=== PATIENT | female | born 1980 | race Caucasian/White ===

== ENCOUNTER 2018-02-04 10:58 | Emergency (ER) | payer BC, OTHER ==
[~2018-02-04] VITALS: Ht 160 cm; Wt 65.8 kg
--- OUTSIDE RECORDS SUMMARY | 2018-02-04 11:25 | XMS REPORT ---
Author Author RICHARD SOTELO Organization [facility] Address [address] [place] [address] Care Team Providers Care Refinery Process Engineer Name Role Phone CASI SOTELOTA Unavailable PROBLEMS Type Condition ICD9-CM Code [id number] Code Onset Dates Condition Status SNOMED Code Problem LGSIL on Pap smear of cervix R87.612 Active 843438391 ALLERGIES No Known Allergies ENCOUNTERS Encounter Location Date Diagnosis [place] [id number] [place] [id number] [place] [address] [phone] 05 Nov, 2017 [place] [address] [place] [id number] [place] [address] [phone] 31 Sep, 2017 [facility] [address] [address]- [address]65 13 Sep, 2017 Well woman exam with routine gynecological exam Z01.419 ; Routine screening for STI (sexually transmitted infection) Z11.3 ; control counseling Z30.09 and Encounter for Depo-Provera contraception Z30.42 [place] [address] [id number] [place] [address] 15251- 1402 03 Sep, 2017 [place] [address] [place] [id number] [place] [address] 97925- 1418 02 Sep, 2017 Family history of early CAD Z82.49 and Family history of diabetes mellitus Z83.3 IMMUNIZATIONS Vaccine Route Administration Date Status DEPO PROVERA (150 MG/ML) IM Intramuscular September 13, 2017 Administered SOCIAL HISTORY Never Assessed REASON FOR VISIT Well Woman Exam., patient has been told her has been unfaithful and would like checked., patient would like to begin depo today if provider allows it.-awoods PLAN OF CARE Activity Details Follow Up 3 Months/1year Reason: control Pending Test PAP REFLEX TO HPV IF ASCUS VITAL SIGNS Height 63 in 2017-09-13 Weight 151.4 lbs 2017-09-13 Temperature 97.7 degrees Fahrenheit 2017-09-13 Heart Rate 79 bpm 2017-09-13 Respiratory Rate 18 2017-09-13 BMI 26.82 kg/m2 2017-09-13 Blood pressure systolic 116 mmHg 2017-09-13 Blood pressure diastolic 78 mmHg 2017-09-13 MEDICATIONS Medication Instructions Dosage Frequency Start Date End Date Duration Status Flagyl 500 mg Orally 2 times a day 1 tablet 12h Sep, Sep, 07 days Active Depo-Provera 150 MG/ML Intramuscular every 3 mos 1 ml Sep, Active RESULTS No Results PROCEDURES Procedure Date Ordered Result Body Site SPECIMEN HANDLING September 13, 2017 No Charge September 13, 2017 DEPO PROVERA (150 MG/ML) September 13, 2017 THER/PROPH/DIAG INJ, SC/IM September 13, 2017 TRICHOMONAS ASSAY W/OPTIC September 13, 2017 Bacterial Vaginosis In House September 13, 2017 URINE TEST September 13, 2017 CULTURE, BACTERIA, OTHER September 13, 2017 INSTRUCTIONS MEDICATIONS ADMINISTERED No Known Medications MEDICAL (GENERAL) HISTORY Type Description Date Surgical History 2000,2004,2005,2010,2013 Hospitalization History
--- OUTSIDE RECORDS SUMMARY | 2018-02-04 11:25 | XMS REPORT ---
Author Author RICHARD SOTELO Organization [facility] Address [address] [place] [address] Care Team Providers Care Sample Weaver Name Role Phone RICHARD SOTELO Unavailable PROBLEMS Type Condition ICD9-CM Code LDS46-OX Code Onset Dates Condition Status SNOMED Code Problem LGSIL on Pap smear of cervix R87.612 Active [id number] ALLERGIES No Information ENCOUNTERS Encounter Location Date Diagnosis [place] [id number] [place] [id number] [place] [address] [phone] 05 Nov, 2017 [place] [address] [place] [id number] [place] [address] 88793- 0446 31 Sep, 2017 [facility] [id number] [place] [address] 58454- 8677 13 Sep, 2017 Well woman exam with routine gynecological exam Z01.419 ; Routine screening for STI (sexually transmitted infection) Z11.3 ; control counseling Z30.09 and Encounter for Depo-Provera contraception Z30.42 [place] [address] [place] [address] 31030- 8103 03 Sep, 2017 [place] [address] [place] [id number] [place] [address] 92877- [phone] 02 Sep, 2017 Family history of early CAD Z82.49 and Family history of diabetes mellitus Z83.3 IMMUNIZATIONS No Known Immunizations SOCIAL HISTORY Never Assessed REASON FOR VISIT Civil Preparedness Officer hx update PLAN OF CARE VITAL SIGNS MEDICATIONS Unknown Medications RESULTS No Results PROCEDURES No Known procedures INSTRUCTIONS MEDICATIONS ADMINISTERED No Known Medications MEDICAL (GENERAL) HISTORY Type Description Date Surgical History 2000,2004,2006,2010,2013 Hospitalization History
--- OUTSIDE RECORDS SUMMARY | 2018-02-04 11:25 | XMS REPORT ---
Author Author JEREMI MCGILL Organization [facility] Address [address] [place] [address] Care Team Providers Care Proctologist Name Role Phone JEREMI MCGILL Unavailable PROBLEMS Type Condition ICD9-CM Code [id number] Code Onset Dates Condition Status SNOMED Code Problem LGSIL on Pap smear of cervix R87.612 Active [id number] ALLERGIES No Information ENCOUNTERS Encounter Location Date Diagnosis [facility] [id number] [place] [address] [phone]- [phone] Sep, [place] [address] [place] [id number] [place] [address] 55740- 0722 13 Sep, 2017 Well woman exam with routine gynecological exam Z01.419 ; Routine screening for STI (sexually transmitted infection) Z11.3 ; control counseling Z30.09 and Encounter for Depo-Provera contraception Z30.42 [place] [address] [address] [id number] [place] [address] 52528- 8106 03 Sep, 2017 [place] [address] [place] [address] 93729- [phone] 02 Sep, 2017 Family history of early CAD Z82.49 and Family history of diabetes mellitus Z83.3 IMMUNIZATIONS No Known Immunizations SOCIAL HISTORY Never Assessed REASON FOR VISIT PLAN OF CARE VITAL SIGNS MEDICATIONS Medication Instructions Dosage Frequency Start Date End Date Duration Status Bactrim DS 800-160 MG Orally Twice a day 1 tablet 12h Sep,Sep 10 day(s) Active RESULTS No Results PROCEDURES No Known procedures INSTRUCTIONS MEDICATIONS ADMINISTERED No Known Medications MEDICAL (GENERAL) HISTORY Type Description Date Surgical History 2000,2005,2006,2010,2013 Hospitalization History
--- OUTSIDE RECORDS SUMMARY | 2018-02-04 11:25 | XMS REPORT ---
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.612 Active [id number] ALLERGIES No Information ENCOUNTERS Encounter Location Date Diagnosis [facility] [id number] [place] [address] 19425- 1549 05 Nov, 2017 [place] [address] [place] [id number] [place] [address] [phone]- 3910 31 Sep, 2017 [facility] [id number] [place] [address] 32871- 5691 13 Sep, 2017 Well woman exam with routine gynecological exam Z01.419 ; Routine screening for STI (sexually transmitted infection) Z11.3 ; control counseling Z30.09 and Encounter for Depo-Provera contraception Z30.42 [place] [address] [place] [address] 72922- 6831 03 Sep, 2017 [place] [address] [place] [id number] [place] [address] 34831- 7109 02 Sep, 2017 Family history of early CAD Z82.49 and Family history of diabetes mellitus Z83.3 IMMUNIZATIONS No Known Immunizations SOCIAL HISTORY Never Assessed REASON FOR VISIT FYI only PLAN OF CARE VITAL SIGNS MEDICATIONS Unknown Medications RESULTS No Results PROCEDURES No Known procedures INSTRUCTIONS MEDICATIONS ADMINISTERED No Known Medications MEDICAL (GENERAL) HISTORY Type Description Date Surgical History 2000,2004,2006,2010,2013 Hospitalization History
--- OUTSIDE RECORDS SUMMARY | 2018-02-04 11:25 | XMS REPORT ---
Author Author JEREMI MCGILL Organization [facility] Address [address] [place] [address] Care Team Providers Care Rug Weaver Name Role Phone JEREMI MCGILL Unavailable PROBLEMS Type Condition ICD9-CM Code PYB93-TA Code Onset Dates Condition Status SNOMED Code Problem LGSIL on Pap smear of cervix R87.612 Active [id number] ALLERGIES No Known Allergies ENCOUNTERS Encounter Location Date Diagnosis [place] [id number] [place] [address] 13553- [phone] 31 Sep, 2017 [place] [address] [place] [id number] [place] [address] [phone]- [phone] 13 Sep, 2017 Well woman exam with routine gynecological exam Z01.419 ; Routine screening for STI (sexually transmitted infection) Z11.3 ; control counseling Z30.09 and Encounter for Depo-Provera contraception Z30.42 [place] [address] [place] [id number] [place] [address] 68213- 2049 03 Sep, 2017 [facility] [address] [place] [address] 94680- [phone] 02 Sep, 2017 Family history of early CAD Z82.49 and Family history of diabetes mellitus Z83.3 IMMUNIZATIONS No Known Immunizations SOCIAL HISTORY Never Assessed REASON FOR VISIT [facility] PLAN OF CARE VITAL SIGNS MEDICATIONS Unknown Medications RESULTS No Results PROCEDURES Procedure Date Ordered Result Body Site COMPREHEN METABOLIC PANEL September 02, 2017 VENIPUNCT, ROUTINE* September 02, 2017 COMPLETE CBC W/AUTO DIFF WBC September 02, 2017 INSTRUCTIONS MEDICATIONS ADMINISTERED No Known Medications MEDICAL (GENERAL) HISTORY Type Description Date Surgical History 2000,2004,2006,2010,2014 Hospitalization History
[2018-02-04] MEDS ORDERED: MECLIZINE 25 MG (ANTIVERT) TAB PO ONE (12:00)
[2018-02-04 12:07] LABS: BASOPHILS # (AUTO) 0.1 10^3/uL (0.0-0.1); BASOPHILS % (AUTO) 1 % (0-10); EOSINOPHILS # (AUTO) 0.1 10^3/uL (0.0-0.3); EOSINOPHILS % (AUTO) 1 % (0-10); HEMATOCRIT 43 % (35-52); HEMOGLOBIN 14.8 G/DL (11.5-16.0); LYMPHOCYTES # (AUTO) 3.9 X 10^3 (1.0-4.0); LYMPHOCYTES % (AUTO) 33 % (12-44); MEAN CORPUSCULAR HEMOGLOBIN 32 PG (25-34); MEAN CORPUSCULAR HGB CONC 34 G/DL (32-36); MEAN CORPUSCULAR VOLUME 93 FL (80-99); MEAN PLATELET VOLUME 9.4 FL (7.4-10.4); MONOCYTES # (AUTO) 0.9 X 10^3 (0.0-1.0); MONOCYTES % (AUTO) 8 % (0-12); NEUTROPHILS # (AUTO) 6.8 X 10^3 (1.8-7.8); NEUTROPHILS % (AUTO) 57 % (42-75); PLATELET COUNT 300 10^3/uL (130-400); RED BLOOD COUNT 4.65 10^6/uL (4.35-5.85); RED CELL DISTRIBUTION WIDTH 15.5 % (10.0-14.5); WHITE BLOOD COUNT 11.9 10^3/uL (4.3-11.0)
--- NOTE | 2018-02-04 12:09 | ED General ---
General Chief Complaint: Dizziness/Syncope Stated Complaint: DIZZINESS;LIGHT HEADED Source of Information: Patient Exam Limitations: No Limitations History of Present Illness Date Seen by Provider: Feb 04, 2018 Time Seen by Provider: 12:08 Initial Comments To ER per private vehicle with reports of sudden onset dizziness lightheadedness and not feeling right. She awakened this morning and initially felt fine. About 2 hours prior to arrival she had sudden onset of dizziness lightheadedness and not feeling right. She has had a minor runny nose and slight nonproductive cough for the past few days. No fevers or chills. Her dizziness is still present but better Timing/Duration: 1-3 Hours Severity: Moderate Allergies and Home Medications Allergies Coded Allergies: No Known Allergies (Verified Allergy, Unknown, 04/26/05) Patient Home Medication List Home Medication List Reviewed: Yes Review of Systems Review of Systems Constitutional: see HPI EENTM: see HPI Respiratory: no symptoms reported Cardiovascular: no symptoms reported Genitourinary: no symptoms reported Musculoskeletal: no symptoms reported Skin: no symptoms reported Psychiatric/Neurological: No Symptoms Reported Hematologic/Lymphatic: No Symptoms Reported Immunological/Allergic: no symptoms reported Past Hquwkmr-Kzgmth-Yqfoci Hx Patient Social History Alcohol Use: Denies Use Recreational Drug Use: No Smoking Status: Current Everyday Smoker Type Used: Cigarettes Recent Hopitalizations: No Immunizations Up To Date Tetanus Booster (TDap): Unknown PED Vaccines UTD: Yes Seasonal Allergies Seasonal Allergies: No Past Medical History Surgeries: No Respiratory: No Cardiac: No Neurological: No Genitourinary: No Gastrointestinal: No Musculoskeletal: No Endocrine: No HEENT: No Cancer: No Psychosocial: No Integumentary: No Blood Disorders: No Physical Exam Vital Signs Vital Signs - First Documented 02/04/18 11:48 Temp 97.8 Pulse 70 Resp 20 B/P (MAP) 118/89 (99) Pulse Ox 100 O2 Delivery Room Air Capillary Refill : Height, Weight, BMI Height: '" Weight: lbs. oz. kg; BMI Method: General Appearance: No Apparent Distress, WD/WN Eyes: Bilateral Eye Normal Inspection, Bilateral Eye PERRL, Bilateral Eye EOMI HEENT: PERRL/EOMI, TMs Normal Respiratory: No Accessory Muscle Use, No Respiratory Distress Gastrointestinal: Non Tender, Soft Extremity: Normal Capillary Refill, Normal Inspection Neurologic/Psychiatric: Alert, Oriented x3, No Motor/Sensory Deficits Skin: Normal Color, Warm/Dry Progress/Results/Core Measures Suspected Sepsis SIRS Temperature: Pulse: Respiratory Rate: Laboratory Tests 02/04/18 11:58: White Blood Count 11.9H Blood Pressure / Mean: Laboratory Tests 02/04/18 11:58: Creatinine 0.67, Platelet Count 300, Total Bilirubin 0.4 Results/Orders Lab Results Laboratory Tests Test 02/04/18 11:58 Range/Units White Blood Count 11.9 H 4.3-11.0 10^3/uL Red Blood Count 4.65 4.35-5.85 10^6/uL Hemoglobin 14.8 11.5-16.0 G/DL Hematocrit 43 35-52 % Mean Corpuscular Volume 93 80-99 FL Mean Corpuscular Hemoglobin 32 25-34 PG Mean Corpuscular Hemoglobin Concent 34 32-36 G/DL Red Cell Distribution Width 15.5 H 10.0-14.5 % Platelet Count 300 130-400 10^3/uL Mean Platelet Volume 9.4 7.4-10.4 FL Neutrophils (%) (Auto) 57 42-75 % Lymphocytes (%) (Auto) 33 12-44 % Monocytes (%) (Auto) 8 0-12 % Eosinophils (%) (Auto) 1 0-10 % Basophils (%) (Auto) 1 0-10 % Neutrophils # (Auto) 6.8 1.8-7.8 X 10^3 Lymphocytes # (Auto) 3.9 1.0-4.0 X 10^3 Monocytes # (Auto) 0.9 0.0-1.0 X 10^3 Eosinophils # (Auto) 0.1 0.0-0.3 10^3/uL Basophils # (Auto) 0.1 0.0-0.1 10^3/uL Urine Color YELLOW Urine Clarity CLEAR Urine pH 7 5-9 Urine Specific Martin 1.005 L 1.016-1.022 Urine Protein NEGATIVE NEGATIVE Urine Glucose (UA) NEGATIVE NEGATIVE Urine Ketones NEGATIVE NEGATIVE Urine Nitrite NEGATIVE NEGATIVE Urine Bilirubin NEGATIVE NEGATIVE Urine Urobilinogen NORMAL NORMAL MG/DL Urine Leukocyte Esterase NEGATIVE NEGATIVE Urine RBC (Auto) 4+ H NEGATIVE Urine RBC RARE /HPF Urine WBC NONE /HPF Urine Squamous Epithelial Cells 2-5 /HPF Urine Crystals NONE /LPF Urine Bacteria NEGATIVE /HPF Urine Casts NONE /LPF Urine Mucus NEGATIVE /LPF Urine Culture Indicated NO Sodium Level 139 135-145 MMOL/L Potassium Level 4.3 3.6-5.0 MMOL/L Chloride Level 106 98-107 MMOL/L Carbon Dioxide Level 23 21-32 MMOL/L Anion Gap 10 5-14 MMOL/L Blood Urea Nitrogen 10 7-18 MG/DL Creatinine 0.67 0.60-1.30 MG/DL Estimat Glomerular Filtration Rate > 60 BUN/Creatinine Ratio 15 Glucose Level 94 70-105 MG/DL Calcium Level 9.4 8.5-10.1 MG/DL Corrected Calcium 9.0 8.5-10.1 MG/DL Total Bilirubin 0.4 0.1-1.0 MG/DL Aspartate Amino Transf (AST/SGOT) 23 5-34 U/L Alanine Aminotransferase (ALT/SGPT) 26 0-55 U/L Alkaline Phosphatase 49 40-136 U/L Total Protein 7.7 6.4-8.2 GM/DL Albumin 4.5 3.2-4.5 GM/DL Serum Test, Qualitative NEGATIVE NEGATIVE My Orders Orders - KAROLINA ELMORE APRN Cbc With Automated Diff (02/04/18 11:57) Comprehensive Metabolic Panel (02/04/18 11:57) Hcg,Qualitative Serum (02/04/18 11:57) Ua Culture If Indicated (02/04/18 11:57) Meclizine Tablet (Antivert Tablet) (02/04/18 12:00) Medications Given in ED Current Medications Medications Dose Ordered Sig/Padma Route Start Time Stop Time Status Last Admin Dose Admin Meclizine HCl 25 mg ONCE ONCE PO 02/04/18 12:00 02/04/18 12:01 DC 02/04/18 12:04 25 MG Vital Signs/I&O 02/04/18 11:48 Temp 97.8 Pulse 70 Resp 20 B/P (MAP) 118/89 (99) Pulse Ox 100 O2 Delivery Room Air Capillary Refill : Departure Impression Primary Impression: Vertigo Disposition: 01 HOME, SELF-CARE Condition: Stable Departure-Patient Inst. Decision time for Depature: 12:56 Referrals: NO,LOCAL PHYSICIAN (PCP) Primary Care Physician Patient Instructions: Vertigo (a Type of Dizziness) (DC) Add. Discharge Instructions: 1. Return to ER for any concerns 2. Follow-up with your doctor next week 3. All discharge instructions reviewed with patient and/or family. Voiced understanding. KAROLINA ELMORE APRN Feb 04, 2018 12:09
[2018-02-04 12:10] LABS: BILIRUBIN,URINE NEGATIVE (NEGATIVE); CLARITY,URINE CLEAR; COLOR,URINE YELLOW; GLUCOSE, URINE (UA) NEGATIVE (NEGATIVE); KETONES,URINE NEGATIVE (NEGATIVE); LEUKOCYTE ESTERASE ,URINE NEGATIVE (NEGATIVE); NITRITE,URINE NEGATIVE (NEGATIVE); PH,URINE 7 (5-9); PROTEIN,URINE NEGATIVE (NEGATIVE); UROBILINOGEN,URINE NORMAL (NORMAL)
[2018-02-04 12:19] LABS: BACTERIA,URINE NEGATIVE /HPF; RBC,URINE RARE /HPF
[2018-02-04 12:26] LABS: ALANINE AMINOTRANSFERASE 26 U/L (0-55); ALBUMIN 4.5 GM/DL (3.2-4.5); ALKALINE PHOSPHATASE 49 U/L (40-136); BILIRUBIN,TOTAL 0.4 MG/DL (0.1-1.0); BUN/CREATININE RATIO 15; CALCIUM 9.4 MG/DL (8.5-10.1); CARBON DIOXIDE 23 MMOL/L (21-32); CHLORIDE 106 MMOL/L (98-107); CREATININE SERUM 0.67 MG/DL (0.60-1.30); GFR ESTIMATED > 60; GLUCOSE 94 MG/DL (70-105); POTASSIUM 4.3 MMOL/L (3.6-5.0); SODIUM 139 MMOL/L (135-145); TOTAL PROTEIN 7.7 GM/DL (6.4-8.2)
[2018-02-04 13:06] VITALS: BP 118/89
== END 2018-02-04 13:06 | disposition home or self-care (01) ==
LOC: EDUNIT# 10:58 → ER 10:59
DX: R42 Dizziness and giddiness (principal); F17.210 Nicotine dependence, cigarettes, uncomplicated
CPT/HCPCS: 36415; 80053; 81000; 84703; 85025

== ENCOUNTER 2018-05-13 08:56 | Inpatient (IN) | payer SELFPAY ==
[~2018-05-13] VITALS: Ht 157.5 cm; Wt 66.2 kg
[2018-05-13] MEDS ORDERED: KETOROLAC 60 MG/2 ML VIAL IM ONE (11:15)
[2018-05-13] MEDS ORDERED: PROCHLORPERAZINE 10 MG/2ML INJ (COMPAZINE) IM ONE (11:15)
[2018-05-13] MEDS ORDERED: diphenhydrAMINE 50 MG/ML INJ (BENADRYL) IM ONE (11:15)
--- NOTE | 2018-05-13 11:32 | ED Headache ---
General Chief Complaint: Head/Cervical Problems Stated Complaint: HEADACHE; BLURRY VISION Nursing Triage Note: PT PRESENTS TO ER WITH COMPLAINT OF HEADACHE SINCE SATURDAY. PT STATES SHE HAS PAIN ON THE LEFT SIDE OF HER HEAD, BUT HAS LOSS OF PERIPHERAL VISION ON RIGHT EYE. STATES SHE HAS BEEN TAKING IBUPROFEN AT HOME. Nursing Sepsis Screen: No Definite Risk Source: patient Exam Limitations: no limitations History of Present Illness Date Seen by Provider: May 13, 2018 Time Seen by Provider: 11:05 Initial Comments 37-year-old female who presents to the emergency room with complaints of a migraine headache that started on Saturday05/11/18. She reports that she has had migraines in the past but this is different due to pain being localized to the left side of her head. She has also had intermittent peripheral right vision loss over the last 2 days but this morning when she woke up she had total right peripheral vision loss. She reports taking ldli-pez-drkyovt pain relief at home without any improvement. Patient is alert and oriented on arrival to the emergency room. Timing/Duration: other (2 days) Severity/Quality: constant Location: temporal (left) Prior Headaches/Recent Trauma: occasional headaches Associated Symptoms: vision changes Allergies and Home Medications Allergies Coded Allergies: NKANo Known Allergies (Verified Allergy, Unknown, 04/26/05) Home Medications Ibuprofen 200 Mg Tablet, 400-800 MG PO Q8H PRN for PAIN-MILD, (Reported) Multivitamin 1 Each Tablet, 1 TAB PO DAILY, (Reported) Patient Home Medication List Home Medication List Reviewed: Yes Review of Systems Review of Systems Constitutional: see HPI; No chills, No fever, No weakness Eyes: See HPI, Blindness (right peripheral vision loss.) Psychiatric/Neurological: See HPI, Headache (left-sided headache) All Other Systems Reviewed Negative Unless Noted: Yes Past Wvtolfh-Kpncor-Lgjhoc Hx Past Med/Social Hx: Reviewed Nursing Past Med/Soc Hx Patient Social History Alcohol Use: Denies Use Recreational Drug Use: No Smoking Status: Current Everyday Smoker Type Used: Cigarettes Recent Foreign Travel: No Contact w/Someone Who Travel: No Recent Infectious Disease Expo: No Recent Hopitalizations: No Immunizations Up To Date Tetanus Booster (TDap): Unknown PED Vaccines UTD: Yes Seasonal Allergies Seasonal Allergies: No Past Medical History Surgeries: No Respiratory: No Cardiac: No Neurological: No Genitourinary: No Gastrointestinal: No Musculoskeletal: No Endocrine: No HEENT: No Cancer: No Psychosocial: No Integumentary: No Blood Disorders: No Family Medical History Reviewed Nursing Family Hx Physical Exam Vital Signs Vital Signs - First Documented 05/13/18 09:08 Temp 99.1 Pulse 82 Resp 20 B/P (MAP) 125/98 (107) Pulse Ox 99 O2 Delivery Room Air Capillary Refill : Less Than 3 Seconds Height, Weight, BMI Height: 5'4.00" Weight: 145lbs. oz. 65.629755nh; BMI Method:Stated General Appearance: WD/WN, no apparent distress, other (Hemianopia of the right eye. Denies pain in the right eye.) HEENT: PERRL/EOMI, normal ENT inspection, TMs normal, pharynx normal, other Neck: non-tender, full range of motion, supple, normal inspection Cardiovascular: normal peripheral pulses, regular rate, rhythm, no edema, no gallop, no JVD, no murmur Respiratory: chest non-tender, lungs clear, normal breath sounds, no respiratory distress, no accessory muscle use Extremities: normal range of motion, non-tender, normal inspection, no pedal edema, no calf tenderness, normal capillary refill Psychiatric: alert, oriented x 3 Crainal Nerves: normal hearing, normal speech, PERRL Coordination/Gait: normal finger to nose, normal gait Skin: normal color, warm/dry Lymphatic: no adenopathy Comments The patient's initial NIH score that was performed after receiving the results of her CT was 1. Visual field- 1: Partial Hemianopia. Due to the patient's low NIH score and symptom length of time the patient is not a candidate for TPA. Progress/Results/Core Measures Results/Orders Lab Results Laboratory Tests Test 05/13/18 09:22 05/13/18 12:15 05/13/18 12:30 Range/Units Urine Color YELLOW Urine Clarity CLEAR Urine pH 7 5-9 Urine Specific [place] 1.005 L 1.016-1.022 Urine Protein NEGATIVE NEGATIVE Urine Glucose (UA) NEGATIVE NEGATIVE Urine Ketones NEGATIVE NEGATIVE Urine Nitrite NEGATIVE NEGATIVE Urine Bilirubin NEGATIVE NEGATIVE Urine Urobilinogen NORMAL NORMAL MG/DL Urine Leukocyte Esterase NEGATIVE NEGATIVE Urine RBC (Auto) NEGATIVE NEGATIVE Urine RBC NONE /HPF Urine WBC NONE /HPF Urine Squamous Epithelial Cells NONE /HPF Urine Crystals NONE /LPF Urine Bacteria NEGATIVE /HPF Urine Casts NONE /LPF Urine Mucus NEGATIVE /LPF Urine Culture Indicated NO White Blood Count 13.6 H 4.3-11.0 10^3/uL Red Blood Count 4.87 4.35-5.85 10^6/uL Hemoglobin 15.9 11.5-16.0 G/DL Hematocrit 47 35-52 % Mean Corpuscular Volume 97 80-99 FL Mean Corpuscular Hemoglobin 33 25-34 PG Mean Corpuscular Hemoglobin Concent 34 32-36 G/DL Red Cell Distribution Width 13.6 10.0-14.5 % Platelet Count 299 130-400 10^3/uL Mean Platelet Volume 9.6 7.4-10.4 FL Neutrophils (%) (Auto) 56 42-75 % Lymphocytes (%) (Auto) 35 12-44 % Monocytes (%) (Auto) 8 0-12 % Eosinophils (%) (Auto) 1 0-10 % Basophils (%) (Auto) 1 0-10 % Neutrophils # (Auto) 7.7 1.8-7.8 X 10^3 Lymphocytes # (Auto) 4.7 H 1.0-4.0 X 10^3 Monocytes # (Auto) 1.0 0.0-1.0 X 10^3 Eosinophils # (Auto) 0.1 0.0-0.3 10^3/uL Basophils # (Auto) 0.1 0.0-0.1 10^3/uL Prothrombin Time 12.1 L 12.2-14.7 SEC INR Comment 0.9 0.8-1.4 Activated Partial Thromboplast Time 28 24-35 SEC D-Dimer 0.47 0.00-0.49 UG/ML Sodium Level 141 135-145 MMOL/L Potassium Level 4.1 3.6-5.0 MMOL/L Chloride Level 106 98-107 MMOL/L Carbon Dioxide Level 24 21-32 MMOL/L Anion Gap 11 5-14 MMOL/L Blood Urea Nitrogen 7 7-18 MG/DL Creatinine 0.72 0.60-1.30 MG/DL Estimat Glomerular Filtration Rate > 60 BUN/Creatinine Ratio 10 Glucose Level 87 70-105 MG/DL Calcium Level 10.0 8.5-10.1 MG/DL Corrected Calcium 8.5-10.1 MG/DL Total Bilirubin 0.6 0.1-1.0 MG/DL Aspartate Amino Transf (AST/SGOT) 24 5-34 U/L Alanine Aminotransferase (ALT/SGPT) 16 0-55 U/L Alkaline Phosphatase 51 40-136 U/L Troponin I < 0.028 <0.028 NG/ML Total Protein 8.0 6.4-8.2 GM/DL Albumin 4.7 H 3.2-4.5 GM/DL My Orders Orders - FLAKITO LACEY Ketorolac Injection (Toradol Injection) (05/13/18 11:15) Prochlorperazine Injection (Compazine In (05/13/18 11:15) Diphenhydramine Injection (Benadryl Inje (05/13/18 11:15) Ct Head Wo (05/13/18 11:13) Cbc With Automated Diff (05/13/18 12:01) Protime With Inr (05/13/18 12:) Partial Thromboplastin Time (05/13/18 12:01) Comprehensive Metabolic Panel (05/13/18 12:01) Fibrin Degradation Products (05/13/18 12:01) Troponin I (05/13/18 12:01) Ua Culture If Indicated (05/13/18 12:01) Chest 1 View, Ap/Pa Only (05/13/18 12:01) Ekg Tracing (05/13/18 12:01) Saline Lock/Iv-Start (05/13/18 12:01) Vital Signs Stroke Patient Q15M (05/13/18 12:01) Monitor-Rhythm Ecg Trace Only (05/13/18 12:01) Dysphagia Screening Tool (05/13/18 12:) Lipid Panel (05/14/18 06:00) Hemoglobin A1c (05/13/18 12:58) Ct Angio Head/Neck (05/13/18 12:58) Iohexol Injection (Omnipaque 350 Mg/Ml 1 (05/13/18 13:15) Received Contrast (Contrast Received) (05/13/18 13:15) Ns (Ivpb) (Sodium Chloride 0.9% Ivpb Bag (05/13/18 13:15) Medications Given in ED Current Medications Medications Dose Ordered Sig/Padma Route Start Time Stop Time Status Last Admin Dose Admin Diphenhydramine HCl 50 mg ONCE ONCE IM 05/13/18 11:15 05/13/18 11:16 DC 05/13/18 11:43 50 MG Iohexol 75 ml ONCE ONCE IV 05/13/18 13:15 05/13/18 13:16 DC 05/13/18 13:25 75 ML Ketorolac Tromethamine 60 mg ONCE ONCE IM 05/13/18 11:15 05/13/18 11:16 DC 05/13/18 11:43 60 MG Prochlorperazine Edisylate 10 mg ONCE ONCE IM 05/13/18 11:15 05/13/18 11:16 DC 05/13/18 11:43 10 MG Sodium Chloride 100 ml ONCE ONCE IV 05/13/18 13:15 05/13/18 13:16 DC 05/13/18 13:25 80 ML Vital Signs/I&O 05/13/18 05/13/18 09:08 12:26 Temp 99.1 Pulse 82 81 Resp 20 10 B/P (MAP) 125/98 (107) 125/98 Pulse Ox 99 100 O2 Delivery Room Air Blood Pressure Mean: 107 Progress Progress Note : Time: 12:17 Progress Note [facility] stroke neurologist Dr. Medina was contacted at this time. Given the NIH score of 1 due to visual field partial hemianopia and subacute finding on CT he recommends brain MRI, CTA head and neck, echocardiogram, lipid panel, A1c, 81mg of aspirin daily, atorvastatin 40 mg daily, and admission for close observation. 1244: Dr. Chacko was contacted at this time and she agrees to accept the patient to her services with a distribution lead consult. 1410: Dr. Burton security analyst was called at this time and he recommends close outpatient follow- up given that the patient's extraocular movement and pupillary response is intact. Initial ECG Impression Date: May 13, 2018 Initial ECG Impression Time: 12:19 Initial ECG Rate: 65 Initial ECG Rhythm: Normal Sinus Initial ECG Intervals: Normal Initial ECG Impression: Normal Initial ECG Comparisson: No Previous ECG Available Comment Negative for STEMI. Dr. Crews has reviewed and agrees with above. Diagnostic Imaging Diagonstic Imaging: Xray, CT Plain Films/CT/US/NM/MRI: chest, head Comments NAME: MOLLY SOLIMAN MED REC#: [id number] PT STATUS: ADM IN : 1980 PHYSICIAN: FLAKITO LACEY ADMIT DATE: 05/13/18/4TH Signed Date of Exam: 05/13/18 CT ANGIO HEAD/NECK CLINICAL INDICATION: Patient with headache, blurred vision, and nausea x3 days. EXAMS: 1: Head CT with and without IV contrast. 2: CT angiogram of the head and neck performed with 75 cc of Omnipaque 350 IV contrast. Sagittal and coronal MIP reformations were created for better visualization of vascular anatomy. COMPARISON: Head CT without contrast dated 05/13/2018. FINDINGS: HEAD CT: Again seen small to moderate-sized acute/subacute cerebral infarct involving the left occipital lobe which is stable in size. There is no evidence of hemorrhagic transformation or significant IV contrast enhancement. There is leptomeningeal vascular enhancement seen in the region. The remainder of the brain parenchyma is unremarkable. There is no brain herniation or midline shift. There is no hydrocephalus. Basal cisterns are unremarkable. The extracranial soft tissue, skull, and orbits are unremarkable. Paranasal sinuses are clear. CT ANGIOGRAM: There is dense contrast bolus seen within the right subclavian vein and superior vena cava. Three-vessel aortic arch is seen. The right brachiocephalic artery, bilateral subclavian arteries, bilateral CCA, bilateral cervical ICA, and bilateral ECA are patent. Slightly dominant left cervical vertebral artery is seen. Otherwise, the bilateral cervical vertebral arteries are patent. The intradural bilateral vertebral arteries, PICA, basilar artery, bilateral superior cerebellar arteries, and bilateral BIOMEDICAL SERVICE ENGINEER are patent. There is no intravascular thrombus seen in the left BIOMEDICAL SERVICE ENGINEER region or significant vascular stenosis. The petrous and bilateral cavernous carotid artery regions are patent. The bilateral A1 ACAs and anterior communicating arteries and their distal branches are patent. The bilateral MCAs and their distal branches are patent. The dural venous sinuses are patent. There is mild enlargement of the bilateral palatine tonsils and posterior nasopharyngeal adenoid soft tissue. The remainder of the neck soft tissue structures are unremarkable. There is a 6 mm noncalcified nodule in the posterior right upper lobe. Mild emphysematous disease is seen. There are small anterior spurs involving the mid to lower cervical spine. IMPRESSION: 1: There is stable acute/subacute infarct involving the left occipital lobe. There is no evidence of hemorrhagic transformation, brain herniation, or midline shift. 2: CT angiogram of the head and neck is unremarkable with no significant stenosis, vascular malformation, aneurysm, or dissection. There is no intravascular thrombus seen. 3: There is a 6 mm noncalcified nodule in the right upper lobe. Comparison to prior chest CT scans would help better evaluate for chronicity. Otherwise, followup chest CT scan in six months is suggested for further evaluation and for stability. Results of this report, regarding vessels and brain, were discussed with Flakito Lacey via the telephone on 05/13/2018 at 1400 hours. Dictated by: Dictated on workstation # [id number] Dict: 05/13/18 1345 Trans: 05/13/181719 NAME: JANNYMOLLY [facility] REC#: [id number] PT STATUS: ADM IN : 1980 PHYSICIAN: FLAKITO LACEY ADMIT DATE: 05/13/18 Signed Date of Exam: 05/13/18 CHEST 1 VIEW, AP/PA ONLY CLINICAL INDICATION: Patient with left-sided headache and right-sided blurred vision. EXAM: Portable chest x-ray upright view. COMPARISONS: None. FINDINGS: Lungs/pleura: Lungs are clear. There is no pneumothorax. There is no pleural effusion. Mediastinum: Unremarkable. Pulmonary vasculature: Unremarkable. Heart: Unremarkable. Bones/extrathoracic soft tissue: There is dextroscoliosis of the lower thoracic spine and left curvature of the lumbar spine. IMPRESSION: There is no radiographic evidence of acute cardiopulmonary process. Dictated by: Dictated on workstation # [id number] Dict: 05/13/18 1251 Trans: 05/13/181719 Interpreted by: EMERY SABILLON MD Electronically signed by: EMERY SABILLON MD 05/13/181719 NAME: JANNYMOLLY Briceno [facility] REC#: [id number] PT STATUS: ADM IN : 1980 PHYSICIAN: FLAKITO LACEY ADMIT DATE: 05/13/18 Signed Date of Exam: 05/13/18 CT HEAD WO PROCEDURE: CT head without contrast. TECHNIQUE: Multiple contiguous axial images were obtained through the brain without the use of intravenous contrast. INDICATION: Headache. Blurred vision. COMPARISON: None. FINDINGS: Region of low attenuation throughout the left occipital and posterior left temporal lobe with loss of the dior-white differentiation. No evidence of hemorrhagic conversion. No mass effect or hydrocephalus. No extra-axial fluid collections. Osseous structures are intact. The visualized paranasal sinuses and mastoids are clear. IMPRESSION: Infarction in the left posterior cerebral artery distribution is likely subacute. No evidence of hemorrhagic conversion. Findings discussed with Flakito Lacey at 11:59 AM on 05/13/2017. Dictated by: Dictated on workstation # [id number] Dict: 05/13/18 1154 Trans: 05/13/18 1707 Interpreted by: ELIE DHILLON MD Electronically signed by: ELIE DHILLON MD 05/13/18 1707 Reviewed: Reviewed by Me Consults : Consulting Physician: A Departure Impression Primary Impression: Subacute Left Posterior Cerebral Artery Infarct Additional Impression: Hemianopia of right eye Disposition: ADMITTED INPATIENT Condition: Stable/Unchanged Admissions Decision to Admit Reason: Admit from ER (General) Decision to Admit/Date: May 13, 2018 Time/Decision to Admit Time: 13:39 Departure-Patient Inst. Referrals: NO,LOCAL PHYSICIAN (PCP) Primary Care Physician FLAKITO LACEY May 13, 2018 11:32
--- NOTE | 2018-05-13 12:07 | Diagnostic Imaging Report ---
PROCEDURE: CT head without contrast. TECHNIQUE: Multiple contiguous axial images were obtained through the brain without the use of intravenous contrast. INDICATION: Headache. Blurred vision. COMPARISON: None. FINDINGS: Region of low attenuation throughout the left occipital and posterior left temporal lobe with loss of the dior-white differentiation. No evidence of hemorrhagic conversion. No mass effect or hydrocephalus. No extra-axial fluid collections. Osseous structures are intact. The visualized paranasal sinuses and mastoids are clear. IMPRESSION: Infarction in the left posterior cerebral artery distribution is likely subacute. No evidence of hemorrhagic conversion. Findings discussed with Ramsey Lacey at 11:59 AM on 05/13/2017. Dictated by: Dictated on workstation # [id number]
[2018-05-13 12:13] LABS: BILIRUBIN,URINE NEGATIVE (NEGATIVE); CLARITY,URINE CLEAR; COLOR,URINE YELLOW; GLUCOSE, URINE (UA) NEGATIVE (NEGATIVE); KETONES,URINE NEGATIVE (NEGATIVE); LEUKOCYTE ESTERASE ,URINE NEGATIVE (NEGATIVE); NITRITE,URINE NEGATIVE (NEGATIVE); PH,URINE 7 (5-9); PROTEIN,URINE NEGATIVE (NEGATIVE); UROBILINOGEN,URINE NORMAL (NORMAL)
[2018-05-13 12:25] LABS: BASOPHILS # (AUTO) 0.1 10^3/uL (0.0-0.1); BASOPHILS % (AUTO) 1 % (0-10); EOSINOPHILS # (AUTO) 0.1 10^3/uL (0.0-0.3); EOSINOPHILS % (AUTO) 1 % (0-10); HEMATOCRIT 47 % (35-52); HEMOGLOBIN 15.9 G/DL (11.5-16.0); LYMPHOCYTES # (AUTO) 4.7 X 10^3 (1.0-4.0); LYMPHOCYTES % (AUTO) 35 % (12-44); MEAN CORPUSCULAR HEMOGLOBIN 33 PG (25-34); MEAN CORPUSCULAR HGB CONC 34 G/DL (32-36); MEAN CORPUSCULAR VOLUME 97 FL (80-99); MEAN PLATELET VOLUME 9.6 FL (7.4-10.4); MONOCYTES % (AUTO) 8 % (0-12); NEUTROPHILS # (AUTO) 7.7 X 10^3 (1.8-7.8); NEUTROPHILS % (AUTO) 56 % (42-75); PLATELET COUNT 299 10^3/uL (130-400); RED CELL DISTRIBUTION WIDTH 13.6 % (10.0-14.5); WHITE BLOOD COUNT 13.6 10^3/uL (4.3-11.0)
[2018-05-13 12:26] VITALS: BP 125/98
[2018-05-13 12:44] LABS: BACTERIA,URINE NEGATIVE /HPF
[2018-05-13 12:48] LABS: ALANINE AMINOTRANSFERASE 16 U/L (0-55); ALBUMIN 4.7 GM/DL (3.2-4.5); ALKALINE PHOSPHATASE 51 U/L (40-136); BILIRUBIN,TOTAL 0.6 MG/DL (0.1-1.0); BUN/CREATININE RATIO 10; CARBON DIOXIDE 24 MMOL/L (21-32); CHLORIDE 106 MMOL/L (98-107); CREATININE SERUM 0.72 MG/DL (0.60-1.30); GFR ESTIMATED > 60; GLUCOSE 87 MG/DL (70-105); POTASSIUM 4.1 MMOL/L (3.6-5.0); SODIUM 141 MMOL/L (135-145)
[2018-05-13 12:53] LABS: FIBRIN DEGRADATION PRODUCTS 0.47 UG/ML (0.00-0.49); INR 0.9 (0.8-1.4); PROTHROMBIN TIME PATIENT 12.1 SEC (12.2-14.7)
--- NOTE | 2018-05-13 12:56 | Diagnostic Imaging Report ---
CLINICAL INDICATION: Patient with left-sided headache and right-sided blurred vision. EXAM: Portable chest x-ray upright view. COMPARISONS: None. FINDINGS: Lungs/pleura: Lungs are clear. There is no pneumothorax. There is no pleural effusion. Mediastinum: Unremarkable. Pulmonary vasculature: Unremarkable. Heart: Unremarkable. Bones/extrathoracic soft tissue: There is dextroscoliosis of the lower thoracic spine and left curvature of the lumbar spine. IMPRESSION: There is no radiographic evidence of acute cardiopulmonary process. Dictated by: Dictated on workstation # [id number]
[2018-05-13] MEDS ORDERED: NS 100 ML (IVPB) BAG IV ONE (13:15)
[2018-05-13] MEDS ORDERED: IOHEXOL 350 MG/ML 100 ML (OMNIPAQUE 350) VIAL IV ONE (13:15)
[2018-05-13] MEDS ORDERED: RECEIVED CONTRAST 20 ML VIAL IV SCH (13:15)
--- NOTE | 2018-05-13 14:16 | Diagnostic Imaging Report ---
CLINICAL INDICATION: Patient with headache, blurred vision, and nausea x3 days. EXAMS: 1: Head CT with and without IV contrast. 2: CT angiogram of the head and neck performed with 75 cc of Omnipaque 350 IV contrast. Sagittal and coronal MIP reformations were created for better visualization of vascular anatomy. COMPARISON: Head CT without contrast dated 05/13/2018. FINDINGS: HEAD CT: Again seen small to moderate-sized acute/subacute cerebral infarct involving the left occipital lobe which is stable in size. There is no evidence of hemorrhagic transformation or significant IV contrast enhancement. There is leptomeningeal vascular enhancement seen in the region. The remainder of the brain parenchyma is unremarkable. There is no brain herniation or midline shift. There is no hydrocephalus. Basal cisterns are unremarkable. The extracranial soft tissue, skull, and orbits are unremarkable. Paranasal sinuses are clear. CT ANGIOGRAM: There is dense contrast bolus seen within the right subclavian vein and superior vena cava. Three-vessel aortic arch is seen. The right brachiocephalic artery, bilateral subclavian arteries, bilateral CCA, bilateral cervical ICA, and bilateral ECA are patent. Slightly dominant left cervical vertebral artery is seen. Otherwise, the bilateral cervical vertebral arteries are patent. The intradural bilateral vertebral arteries, PICA, basilar artery, bilateral superior cerebellar arteries, and bilateral JUNIOR MEDIA BUYER are patent. There is no intravascular thrombus seen in the left JUNIOR MEDIA BUYER region or significant vascular stenosis. The petrous and bilateral cavernous carotid artery regions are patent. The bilateral A1 ACAs and anterior communicating arteries and their distal branches are patent. The bilateral MCAs and their distal branches are patent. The dural venous sinuses are patent. There is mild enlargement of the bilateral palatine tonsils and posterior nasopharyngeal adenoid soft tissue. The remainder of the neck soft tissue structures are unremarkable. There is a 6 mm noncalcified nodule in the posterior right upper lobe. Mild emphysematous disease is seen. There are small anterior spurs involving the mid to lower cervical spine. IMPRESSION: 1: There is stable acute/subacute infarct involving the left occipital lobe. There is no evidence of hemorrhagic transformation, brain herniation, or midline shift. 2: CT angiogram of the head and neck is unremarkable with no significant stenosis, vascular malformation, aneurysm, or dissection. There is no intravascular thrombus seen. 3: There is a 6 mm noncalcified nodule in the right upper lobe. Comparison to prior chest CT scans would help better evaluate for chronicity. Otherwise, followup chest CT scan in six months is suggested for further evaluation and for stability. Results of this report, regarding vessels and brain, were discussed with Ramsey Lacey via the telephone on 05/13/2018 at 1400 hours. Dictated by: Dictated on workstation # [id number]
--- NOTE | 2018-05-13 15:00 | NUR ---
SOUTH SOLIMAN admitted to room 418-1, with an admitting diagnosis of SUBACUTE LEFT POSTERIOR CEREBRAL ARTERY INFARCT, on 05/13/18 from ER via W/C, accompanied by STAFF.MOLLY SOLIMAN introduced to surroundings, call light, bed controls, phone, TV, temperature control, lights, meal times, smoking policy, visitor policy, side rail policy, bathrooms and showers. Patient Rights given to patient in the handbook.MOLLY SOLIMAN verbalizes understanding that [facility] is not responsible for the loss or damage to any personal effects or valuables that are kept in the patients posession during their hospitalization. The following Patient Care Plans were discussed with the PT: Discharge Planning, PAIN CONTROL,IV THERAPY, and TESTS AND PROCEDURES. MOLLY SOLIMAN verbalizes understanding of Interdisciplinary Patient Education. Patient and/or family were informed about the Rapid Response Team and its purpose.
[2018-05-13 15:10] VITALS: BP 112/75
--- NOTE | 2018-05-13 15:39 | Physical Therapy Progress Note ---
Therapy Progress Note PT eval order received but patient is having testing done at this time after admission. Will try back in the morning. DOE RAO PT May 13, 2018 15:39
[2018-05-13] MEDS ORDERED: fentaNYL INJECTION 100 MCG/2 ML AMP IVP PRN (15:45)
--- NOTE | 2018-05-13 15:48 | Occ Therapy Progress Note ---
Therapy Progress Note 1540 pm Received OT Eval order but patient is having Echocardiogram testing in process at this time . Patient will be seen tomorrow am for OT Eval.. MJ SWAIN OT May 13, 2018 15:48
[2018-05-13] MEDS ORDERED: IBUP-30 PO (15:53)
[2018-05-13] MEDS ORDERED: MULT1TAB69 PO (15:53)
[2018-05-13 15:54] VITALS: BP 112/81
[2018-05-13] MEDS: HYDROcodone/APAP 5 MG/325 MG (LORTAB) TAB PO PRN (16:15)
--- NOTE | 2018-05-13 16:16 | History & Physical-Hospitalist ---
History of Present Illness HPI/Chief Complaint Pt is a 37yoCF with a PMH of tobacco abuse who presented to the ER due to right sided peripheral vision loss and headache. Her symptoms started on 05/11 when she woke up in the morning. She thought it was a migraine as she has a history of migraines and so she took ibuprofen. This did not improve her symptoms. She decided to seek care in the ER today as her symptoms were persistent. She complains of complete right sided peripheral vision loss still. She denies any other vision issues or deficits. She has no history of stroke or clotting disorder. She has no history of preeclampsia or other PIH syndromes in . CT head was done which revealed a left sided infarct. CTA Head and Neck showed a left occipital lobe infarct. She was admitted for further management. Source: patient Exam Limitations: no limitations Date Seen 05/13/18 Time Seen by a Provider: 16:07 Attending Physician Maxwell Chacko MD PCP No,Local Physician Referring Physician Date of Admission May 13, 2018 at 14:35 Home Medications & Allergies Home Medications Reviewed patient Home Medication Reconciliation performed by pharmacy medication reconciliations oil refinery process technician and/or nursing. Patients Allergies have been reviewed. Allergies Allergies Coded Allergies NKANo Known Allergies (Verified Allergy, Unknown, 04/26/05) Past Vdzxmtv-Hhvral-Sihsmy Hx Past Med/Social Hx: Reviewed Nursing Past Med/Soc Hx Patient Social History Alcohol Use: Occasionally Uses Recreational Drug Use: No Smoking Status: Current Everyday Smoker Cigaretts per day: 20 Type Used: Cigarettes Recent Foreign Travel: No Contact w/other who traveled: No Recent Hopitalizations: No Recent Infectious Disease Expo: No Immunizations Up To Date Tetanus Booster (TDap): Unknown Pediatric: Yes Seasonal Allergies Seasonal Allergies: No Past Medical History Migraines History of Blood Disorders: No Family History Reviewed Nursing Family Hx No Pertinent Family Hx (specifically denies family history of stroke, clotting disorders, heart disease) Review of Systems Constitutional: No chills, No fever EENTM: vision loss (per HPI); No blurred vision, No double vision, No nose congestion, No throat pain Respiratory: No cough, No dyspnea on exertion, No short of breath Cardiovascular: No chest pain, No edema, No palpitations Gastrointestinal: No abdominal pain, No constipation, No diarrhea, No nausea, No vomiting Genitourinary: No dysuria, No frequency Musculoskeletal: No joint pain, No muscle pain Skin: No lesions, No rash Psychiatric/Neurological: Headache; Denies Numbness, Denies Tingling Physical Exam Physical Exam Vital Signs Vital Signs - First Documented 05/13/18 09:08 Temp 99.1 Pulse 82 Resp 20 B/P (MAP) 125/98 (107) Pulse Ox 99 O2 Delivery Room Air Capillary Refill : Less Than 3 Seconds Height, Weight, BMI Height: 5'4.00" Weight: 145lbs. oz. 65.118789sf; BMI Method:Stated General Appearance: No Apparent Distress Eyes: Right Eye Normal Inspection, Right Eye PERRL HEENT: PERRL/EOMI, Normal ENT Inspection, Moist Mucous Membranes, Other (right peripheral vision loss) Neck: Full Range of Motion, Normal Inspection, Non Tender; No Carotid Bruit Respiratory: Lungs Clear, Normal Breath Sounds, No Accessory Muscle Use, No Respiratory Distress Cardiovascular: Regular Rate, Rhythm, No Edema, No Gallop, No JVD, No Murmur, Normal Peripheral Pulses Gastrointestinal: Normal Bowel Sounds, Non Tender, Soft Back: Normal Inspection Extremity: Normal Capillary Refill, Normal Inspection, Normal Range of Motion, Non Tender, No Calf Tenderness, No Pedal Edema Neurologic/Psychiatric: Alert, Oriented x3, No Motor/Sensory Deficits, Normal Mood/Affect Skin: Normal Color, Warm/Dry Lymphatic: No Adenopathy Results Results/Procedures Labs Laboratory Tests 05/13/18 12:15 05/14/18 05:05 Patient resulted labs reviewed. Imaging: Reviewed Imaging Report Imaging Date of Exam:05/13/18 CT HEAD WO PROCEDURE: CT head without contrast. TECHNIQUE: Multiple contiguous axial images were obtained through the brain without the use of intravenous contrast. INDICATION: Headache. Blurred vision. COMPARISON: None. FINDINGS: Region of low attenuation throughout the left occipital and posterior left temporal lobe with loss of the dior-white differentiation. No evidence of hemorrhagic conversion. No mass effect or hydrocephalus. No extra-axial fluid collections. Osseous structures are intact. The visualized paranasal sinuses and mastoids are clear. IMPRESSION: Infarction in the left posterior cerebral artery distribution is likely subacute. No evidence of hemorrhagic conversion. Date of Exam:05/13/18 CT ANGIO HEAD/NECK CLINICAL INDICATION: Patient with headache, blurred vision, and nausea x3 days. EXAMS: 1: Head CT with and without IV contrast. 2: CT angiogram of the head and neck performed with 75 cc of Omnipaque 350 IV contrast. Sagittal and coronal MIP reformations were created for better visualization of vascular anatomy. COMPARISON: Head CT without contrast dated 05/13/2018. FINDINGS: HEAD CT: Again seen small to moderate-sized acute/subacute cerebral infarct involving the left occipital lobe which is stable in size. There is no evidence of hemorrhagic transformation or significant IV contrast enhancement. There is leptomeningeal vascular enhancement seen in the region. The remainder of the brain parenchyma is unremarkable. There is no brain herniation or midline shift. There is no hydrocephalus. Basal cisterns are unremarkable. The extracranial soft tissue, skull, and orbits are unremarkable. Paranasal sinuses are clear. CT ANGIOGRAM: There is dense contrast bolus seen within the right subclavian vein and superior vena cava. Three-vessel aortic arch is seen. The right brachiocephalic artery, bilateral subclavian arteries, bilateral CCA, bilateral cervical ICA, and bilateral ECA are patent. Slightly dominant left cervical vertebral artery is seen. Otherwise, the bilateral cervical vertebral arteries are patent. The intradural bilateral vertebral arteries, PICA, basilar artery, bilateral superior cerebellar arteries, and bilateral PILOT CONTROL OPERATOR HELPER are patent. There is no intravascular thrombus seen in the left PILOT CONTROL OPERATOR HELPER region or significant vascular stenosis. The petrous and bilateral cavernous carotid artery regions are patent. The bilateral A1 ACAs and anterior communicating arteries and their distal branches are patent. The bilateral MCAs and their distal branches are patent. The dural venous sinuses are patent. There is mild enlargement of the bilateral palatine tonsils and posterior nasopharyngeal adenoid soft tissue. The remainder of the neck soft tissue structures are unremarkable. There is a 6 mm noncalcified nodule in the posterior right upper lobe. Mild emphysematous disease is seen. There are small anterior spurs involving the mid to lower cervical spine. IMPRESSION: 1: There is stable acute/subacute infarct involving the left occipital lobe. There is no evidence of hemorrhagic transformation, brain herniation, or midline shift. 2: CT angiogram of the head and neck is unremarkable with no significant stenosis, vascular malformation, aneurysm, or dissection. There is no intravascular thrombus seen. 3: There is a 6 mm noncalcified nodule in the right upper lobe. Comparison to prior chest CT scans would help better evaluate for chronicity. Otherwise, followup chest CT scan in six months is suggested for further evaluation and for stability. Results of this report, regarding vessels and brain, were discussed with Ramseycharis Lacey via the telephone on 05/13/2018 at 1400 hours. Assessment/Plan Admission Diagnosis Left occipital lobe infarct Admission Status: Inpatient Order (span 2 midnights) Reason for Inpatient Admission: Acute CVA- needs MRI, PT/OT Diagnosis/Problems Diagnosis/Problems (1) Acute ischemic left PILOT CONTROL OPERATOR HELPER stroke Assessment & Plan: MRI ordered Echo ordered Cardiology consulted given age- consider holter monitor? PT/OT ordered passed dysphagia screen Monitor on telemetry Lipid panel in AM I discussed with yunior Mcdonald, who recommended Factor V Leiden testing and outpatient follow up for further hypercoag testing in 3 months (2) Limited peripheral vision of right eye Status: Acute Assessment & Plan: Consistent with area of infarction Ramsey in ER spoke with Dr Lozano who will see as an outpatient (3) Tobacco abuse Assessment & Plan: Strongly recommended cessation Clinical Quality Measures DVT/VTE Risk/Contraindication: Risk Factor Score Per Nursin RFS Level Per Nursing on Admit: 2=Moderate MAXWELL CHACKO MD May 13, 2018 16:16
--- NOTE | 2018-05-13 16:18 | Consultation-Cardiology ---
HPI-Cardiology Cardiology Consultation: Date of Consultation 05/13/18 Time Seen by a Provider: 15:50 Date of Admission 05-13-18 Attending Physician Laura Chacko MD Admitting Physician No,Local Physician Consulting Physician Dante Doan MD HPI: Chief Complaint: Non-hemorrhagic CVA Ms. Soliman is a 37 year old female admitted to 418 from the ED. She reports she had drank approx 6 beers on Saturday night. She woke up on Saturday morning and approx an hour later developed a headache. She states she felt it was a migraine. She took OTC Ibuprofen without much relief. She states she was talking to her sister on the phone later in the day when she felt a sharp, stabbing pain in her head. She reports she began to notice intermittent right sided peripheral vision loss. She states the headache has persisted since Saturday with peripheral vision loss of the right eye which has not returned. She denies any c/o palpitations, syncope, near syncope, CP, dyspnea, or LE swelling. She reports her KIRAN is better. She reports she was receiving Depo injections for control, but did not have her Depo injection renewed in February. She states she has not been on any control. She does smoke approx 1/2 to 1 PPD of cigs. She denies any illicit drug use. She denies any recent infections. No c/o n/v/d. No c/o fever or chills. Review of Systems-Cardiology Review of Systems Constitutional: No chills, No fever, No malaise Eyes: As described under HPI Ears/Nose/Throat: No epistaxis, No recent hearing loss Respiratory: As described under HPI Cardiovascular: As described under HPI Gastrointestinal: No constipation, No diarrhea, No nausea, No vomiting Genitourinary: No dysuria, No hematuria Musculoskeletal: no symptoms reported Skin: No rash, No ulcerations Psychiatric/Neurological: As described under HPI; No seizure, No syncope Hematologic: No bleeding abnormalities LKF-Onuwss-Eyejoc Hx Patient Social History Alcohol Use: Denies Use Recreational Drug Use: No Smoking Status: Current Everyday Smoker Type Used: Cigarettes Recent Foreign Travel: No Recent Infectious Disease Expo: No Hospitalization with Isolation: Denies Physical Abuse Screen: No Sexual Abuse: No Immunizations Up To Date Tetanus Booster (TDap): Unknown Past Medical History PMH As described under Assessment. Family Medical History Family Medical History: No reported family h/o CAD or CVA. No reported family h/o premature SCD. Allergies and Home Medications Allergies Coded Allergies: NKANo Known Allergies (Verified Allergy, Unknown, 04/26/05) Home Medications Ibuprofen 200 Mg Tablet, 400-800 MG PO Q8H PRN for PAIN-MILD, (Reported) Multivitamin 1 Each Tablet, 1 TAB PO DAILY, (Reported) Physical Exam-Cardiology Physical Exam Vital Signs/I&O 05/14/18 05/14/18 05/14/18 05/14/18 00:47 01:00 04:16 07:06 Temp 98.0 97.9 Pulse 61 61 52 64 Resp 18 18 B/P (MAP) 110/75 (87) 110/73 (85) Pulse Ox 96 96 O2 Delivery Room Air Room Air 05/14/18 05/14/18 08:00 12:00 Temp 99.0 98.0 Pulse 70 72 Resp 18 20 B/P (MAP) 95/59 (71) 120/74 (89) Pulse Ox 97 99 O2 Delivery Room Air Room Air 05/14/18 00:00 Intake Total 1080 ml Balance 1080 ml Capillary Refill : Less Than 3 Seconds Constitutional: AAO x 3, well-developed, well-nourished HEENT: PERRL, hearing is well preserved, oral hygience is good Neck: No carotid bruit; carotid pulses are 2 + bilaterally Respiratory: No accessory muscle use, No respiratory distress; chest expansion is symmetric, chest is bilaterally symmetric, lungs clear to auscultation Cardiovascular: regular rate-rhythm; No JVD; S1 and S2 Gastrointestinal: No tender; soft, round, audible bowel sounds Rectal: deferred Extremities: no lower extremity edema bilateral Neurologic/Psychiatric: No aphasia, No facial droop, No motor weakness; grossly intact, power is 5/5 both on sides Skin: No rash, No ulcerations Data Review Labs Laboratory Tests 05/13/18 12:30: Mean Blood Glucose 88, Hemoglobin A1c 4.7 05/13/18 16:32: 05/14/18 05:05: White Blood Count 8.0, Red Blood Count 4.27L, Hemoglobin 14.1, Hematocrit 42, Mean Corpuscular Volume 97, Mean Corpuscular Hemoglobin 33, Mean Corpuscular Hemoglobin Concent 34, Red Cell Distribution Width 13.5, Platelet Count 283, Mean Platelet Volume 9.6, Neutrophils (%) (Auto) 51, Lymphocytes (%) (Auto) 36, Monocytes (%) (Auto) 10, Eosinophils (%) (Auto) 3, Basophils (%) (Auto) 1, Neutrophils # (Auto) 4.1, Lymphocytes # (Auto) 2.8, Monocytes # (Auto) 0.8, Eosinophils # (Auto) 0.2, Basophils # (Auto) 0.1, Sodium Level 137, Potassium Level 4.3, Chloride Level 109H, Carbon Dioxide Level 21, Anion Gap 7, Blood Urea Nitrogen 10, Creatinine 0.60, Estimat Glomerular Filtration Rate > 60, BUN/ Creatinine Ratio 17, Glucose Level 88, Calcium Level 8.5, Corrected Calcium 8.7 , Total Bilirubin 0.4, Aspartate Amino Transf (AST/SGOT) 18, Alanine Aminotransferase (ALT/SGPT) 12, Alkaline Phosphatase 43, Total Protein 6.1L, Albumin 3.7, Triglycerides Level 81, Cholesterol Level 186, LDL Cholesterol Direct 124, VLDL Cholesterol 16, HDL Cholesterol 51, Thyroid Stimulating Hormone (TSH) 1.09 05/14/18 10:25: D-Dimer 0.37 Radiology NAME: MO[facility] SOLIMAN [facility] REC#: [id number] PT STATUS: REG ER : 1980 PHYSICIAN: FLAKITO LACEY ADMIT DATE: 05/13/18/ER Draft Date of Exam:05/13/18 CT ANGIO HEAD/NECK CLINICAL INDICATION: Patient with headache, blurred vision, and nausea x3 days. EXAMS: 1: Head CT with and without IV contrast. 2: CT angiogram of the head and neck performed with 75 cc of Omnipaque 350 IV contrast. Sagittal and coronal MIP reformations were created for better visualization of vascular anatomy. COMPARISON: Head CT without contrast dated 05/13/2018. FINDINGS: HEAD CT: Again seen small to moderate-sized acute/subacute cerebral infarct involving the left occipital lobe which is stable in size. There is no evidence of hemorrhagic transformation or significant IV contrast enhancement. There is leptomeningeal vascular enhancement seen in the region. The remainder of the brain parenchyma is unremarkable. There is no brain herniation or midline shift. There is no hydrocephalus. Basal cisterns are unremarkable. The extracranial soft tissue, skull, and orbits are unremarkable. Paranasal sinuses are clear. CT ANGIOGRAM: There is dense contrast bolus seen within the right subclavian vein and superior vena cava. Three-vessel aortic arch is seen. The right brachiocephalic artery, bilateral subclavian arteries, bilateral CCA, bilateral cervical ICA, and bilateral ECA are patent. Slightly dominant left cervical vertebral artery is seen. Otherwise, the bilateral cervical vertebral arteries are patent. The intradural bilateral vertebral arteries, PICA, basilar artery, bilateral superior cerebellar arteries, and bilateral ROVING INSPECTOR are patent. There is no intravascular thrombus seen in the left ROVING INSPECTOR region or significant vascular stenosis. The petrous and bilateral cavernous carotid artery regions are patent. The bilateral A1 ACAs and anterior communicating arteries and their distal branches are patent. The bilateral MCAs and their distal branches are patent. The dural venous sinuses are patent. There is mild enlargement of the bilateral palatine tonsils and posterior nasopharyngeal adenoid soft tissue. The remainder of the neck soft tissue structures are unremarkable. There is a 6 mm noncalcified nodule in the posterior right upper lobe. Mild emphysematous disease is seen. There are small anterior spurs involving the mid to lower cervical spine. IMPRESSION: 1: There is stable acute/subacute infarct involving the left occipital lobe. There is no evidence of hemorrhagic transformation, brain herniation, or midline shift. 2: CT angiogram of the head and neck is unremarkable with no significant stenosis, vascular malformation, aneurysm, or dissection. There is no intravascular thrombus seen. 3: There is a 6 mm noncalcified nodule in the right upper lobe. Comparison to prior chest CT scans would help better evaluate for chronicity. Otherwise, followup chest CT scan in six months is suggested for further evaluation and for stability. Results of this report, regarding vessels and brain, were discussed with Flakito Lacey via the telephone on 05/13/2018 at 1400 hours. Dictated on workstation # [id number] Dict: 05/13/18 1345 Trans: 05/13/18 [id number] Interpreted by: EMERY SABILLON MD Electronically signed by: A/P-Cardiology Assessment/Admission Diagnosis Non-hemorrhagic CVA with right sided peripheral vision loss - management per medical services There is stable acute/subacute infarct involving the left occipital lobe. There is no evidence of hemorrhagic transformation, brain herniation, or midline shift per CTA of head on 05-13-18 Tobaccoism - cessation advised H/O migraines Discussion and Recomendations Non-hemorrhagic CVA - management per medical services Advise echocardiogram to eval structure Advise tele to eval for possible arrhythmia - if nothing seen during hospitalization advise consideration of ILR implant to look for occult arrhythmia as cause Hematology has been consulted per medical services Monitor lab Further recs will be based on her hospital course We would like to thank medical services for this consult I have spoken to Dr. Chacko Clinical Quality Measures DVT/VTE Risk/Contraindication: Risk Factor Score Per Nursin RFS Level Per Nursing on Admit: 2=Moderate THIEN MICHAUD May 13, 2018 16:18
[2018-05-13] MEDS ORDERED: FLU QUADRIvalent (5+ YOA) 2018-2019 (AFLURIA) 0.5 ML IM ONE (16:30)
[2018-05-13] MEDS: IBUPROFEN TABLET 200 MG TAB PO PRN (18:55)
[2018-05-13 19:59] VITALS: BP 114/80
[2018-05-13] MEDS: ATORVASTATIN 40 MG (LIPITOR) TABLET PO SCH (20:32)
--- NOTE | 2018-05-13 21:51 | Consultation-Cardiology ---
HPI-Cardiology Cardiology Consultation: Date of Consultation 05/13/18 Time Seen by a Provider: 20:50 Date of Admission Attending Physician Laura Chacko MD Admitting Physician No,Local Physician Consulting Physician SHAMA CALVILLO MD, MA, FACP, FACC, [facility], [facility] Physician requesting consult: Dr Chacko HPI: Chief Complaint: Reason for consultation: Non-hemorrhagic CVA Ms. Miner is a 37 year old female admitted to 418 from the ED. She reports she had drank approx 6 beers on Saturday night. She woke up on Saturday morning and approx an hour later developed a headache. She states she felt it was a migraine. She took OTC Ibuprofen without much relief. She states she was talking to her sister on the phone later in the day when she felt a sharp, stabbing pain in her head. She reports she began to notice intermittent right sided peripheral vision loss. She states the headache has persisted since Saturday with peripheral vision loss of the right eye which has not returned. She denies any c/o palpitations, syncope, near syncope, CP, dyspnea, or LE swelling. She reports her KIRAN is better. She reports she was receiving Depo injections for control, but did not have her Depo injection renewed in February. She states she has not been on any control. She does smoke approx 1/2 to 1 PPD of cigs. She denies any illicit drug use. She denies any recent infections. No c/o n/v/d. No c/o fever or chills. Review of Systems-Cardiology Review of Systems Constitutional: No chills, No fever, No malaise Eyes: As described under HPI Ears/Nose/Throat: No epistaxis, No recent hearing loss Respiratory: As described under HPI Cardiovascular: As described under HPI Gastrointestinal: No constipation, No diarrhea, No nausea, No vomiting Genitourinary: No dysuria, No hematuria Musculoskeletal: no symptoms reported Skin: No rash, No ulcerations Psychiatric/Neurological: As described under HPI; No seizure, No syncope Hematologic: No bleeding abnormalities BLS-Hnmupv-Erwqif Hx Patient Social History Alcohol Use: Occasionally Uses Recreational Drug Use: No Smoking Status: Current Everyday Smoker Cigaretts per day: 20 Type Used: Cigarettes Recent Foreign Travel: No Recent Infectious Disease Expo: No Hospitalization with Isolation: Denies Physical Abuse Screen: No Sexual Abuse: No Immunizations Up To Date Tetanus Booster (TDap): Unknown Past Medical History PMH As described under Assessment. Family Medical History Family Medical History: No reported family h/o CAD or CVA. No reported family h/o premature SCD. Family History: Hypertension 19 FATHER Allergies and Home Medications Allergies Coded Allergies: NKANo Known Allergies (Verified Allergy, Unknown, 04/26/05) Home Medications Ibuprofen 200 Mg Tablet, 400-800 MG PO Q8H PRN for PAIN-MILD, (Reported) Multivitamin 1 Each Tablet, 1 TAB PO DAILY, (Reported) Patient Home Medication List Home Medication List Reviewed: Yes Physical Exam-Cardiology Physical Exam Vital Signs/I&O 05/13/18 05/13/18 05/13/18 05/13/18 12:26 14:57 15:10 15:54 Temp 97.0 97.0 Pulse 81 72 97 75 Resp 10 20 16 16 B/P (MAP) 125/98 137/82 (100) 112/75 112/81 (91) Pulse Ox 100 98 99 99 O2 Delivery Room Air Room Air Room Air 05/13/18 05/13/18 05/13/18 05/13/18 16:51 18:44 19:00 19:59 Temp 97.8 Pulse 81 72 67 Resp 16 B/P (MAP) 114/80 (91) Pulse Ox 98 98 O2 Delivery Room Air Room Air Capillary Refill : Less Than 3 Seconds Constitutional: AAO x 3, well-developed, well-nourished HEENT: PERRL, hearing is well preserved, oral hygience is good Neck: No carotid bruit; carotid pulses are 2 + bilaterally Respiratory: No accessory muscle use, No respiratory distress; chest expansion is symmetric, chest is bilaterally symmetric, lungs clear to auscultation Cardiovascular: regular rate-rhythm; No JVD; S1 and S2 Gastrointestinal: No tender; soft, round, audible bowel sounds Rectal: deferred Extremities: no lower extremity edema bilateral Neurologic/Psychiatric: No aphasia, No facial droop, No motor weakness; grossly intact, power is 5/5 both on sides Skin: No rash, No ulcerations Data Review Labs Laboratory Tests 05/13/18 09:22: Urine Color YELLOW, Urine Clarity CLEAR, Urine pH 7, Urine Specific [place] 1.005L, Urine Protein NEGATIVE, Urine Glucose (UA) NEGATIVE, Urine Ketones NEGATIVE, Urine Nitrite NEGATIVE, Urine Bilirubin NEGATIVE, Urine Urobilinogen NORMAL, Urine Leukocyte Esterase NEGATIVE, Urine RBC (Auto) NEGATIVE, Urine RBC NONE, Urine WBC NONE, Urine Squamous Epithelial Cells NONE, Urine Crystals NONE , Urine Bacteria NEGATIVE, Urine Casts NONE, Urine Mucus NEGATIVE, Urine Culture Indicated NO 05/13/18 12:15: White Blood Count 13.6H, Red Blood Count 4.87, Hemoglobin 15.9, Hematocrit 47, Mean Corpuscular Volume 97, Mean Corpuscular Hemoglobin 33, Mean Corpuscular Hemoglobin Concent 34, Red Cell Distribution Width 13.6, Platelet Count 299, Mean Platelet Volume 9.6, Neutrophils (%) (Auto) 56, Lymphocytes (%) (Auto) 35, Monocytes (%) (Auto) 8, Eosinophils (%) (Auto) 1, Basophils (%) (Auto) 1, Neutrophils # (Auto) 7.7, Lymphocytes # (Auto) 4.7H, Monocytes # (Auto) 1.0, Eosinophils # (Auto) 0.1, Basophils # (Auto) 0.1, Prothrombin Time 12.1L, INR Comment 0.9, Activated Partial Thromboplast Time 28, D-Dimer 0.47, Sodium Level 141, Potassium Level 4.1, Chloride Level 106, Carbon Dioxide Level 24, Anion Gap 11, Blood Urea Nitrogen 7, Creatinine 0.72, Estimat Glomerular Filtration Rate > 60, BUN/Creatinine Ratio 10, Glucose Level 87, Calcium Level 10.0, Corrected Calcium , Total Bilirubin 0.6, Aspartate Amino Transf (AST/SGOT) 24, Alanine Aminotransferase (ALT/SGPT) 16, Alkaline Phosphatase 51, Troponin I < 0.028, Total Protein 8.0, Albumin 4.7H 05/13/18 12:30: 05/13/18 16:32: A/P-Cardiology Assessment/Admission Diagnosis 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 There is no evidence of hemorrhagic transformation, brain herniation, or midline shift per CTA of head on 05-13-18 Echo of 05/13/18: LVEF 60-65%, PASP approx 25 mmHg Tobaccoism - cessation advised H/O migraines Discussion and Recomendations Non-hemorrhagic CVA - management per medical services Consider ILR for eval for cryptogenic stroke Dr Ruvalcaba covering the Card Svce beginning 05/14/18 Clinical Quality Measures DVT/VTE Risk/Contraindication: Risk Factor Score Per Nursin RFS Level Per Nursing on Admit: 2=Moderate SHAMA CALVILLO MD FACP FAC CCDS May 13, 2018 21:51
[2018-05-14] VITALS (7 sets, daily range): BP systolic 95–125; BP diastolic 59–98
[2018-05-14 05:36] LABS: BASOPHILS # (AUTO) 0.1 10^3/uL (0.0-0.1); BASOPHILS % (AUTO) 1 % (0-10); EOSINOPHILS # (AUTO) 0.2 10^3/uL (0.0-0.3); EOSINOPHILS % (AUTO) 3 % (0-10); HEMATOCRIT 42 % (35-52); HEMOGLOBIN 14.1 G/DL (11.5-16.0); LYMPHOCYTES # (AUTO) 2.8 X 10^3 (1.0-4.0); LYMPHOCYTES % (AUTO) 36 % (12-44); MEAN CORPUSCULAR HEMOGLOBIN 33 PG (25-34); MEAN CORPUSCULAR HGB CONC 34 G/DL (32-36); MEAN CORPUSCULAR VOLUME 97 FL (80-99); MEAN PLATELET VOLUME 9.6 FL (7.4-10.4); MONOCYTES # (AUTO) 0.8 X 10^3 (0.0-1.0); MONOCYTES % (AUTO) 10 % (0-12); NEUTROPHILS # (AUTO) 4.1 X 10^3 (1.8-7.8); NEUTROPHILS % (AUTO) 51 % (42-75); PLATELET COUNT 283 10^3/uL (130-400); RED CELL DISTRIBUTION WIDTH 13.5 % (10.0-14.5)
[2018-05-14] MEDS: HYDROcodone/APAP 5 MG/325 MG (LORTAB) TAB PO PRN ×3 (05:42→16:02)
[2018-05-14 06:16] LABS: ALANINE AMINOTRANSFERASE 12 U/L (0-55); ALBUMIN 3.7 GM/DL (3.2-4.5); ALKALINE PHOSPHATASE 43 U/L (40-136); BILIRUBIN,TOTAL 0.4 MG/DL (0.1-1.0); BUN/CREATININE RATIO 17; CALCIUM 8.5 MG/DL (8.5-10.1); CARBON DIOXIDE 21 MMOL/L (21-32); CHLORIDE 109 MMOL/L (98-107); CHOLESTEROL 186 MG/DL (< 200); GFR ESTIMATED > 60; GLUCOSE 88 MG/DL (70-105); HDL CHOLESTEROL 51 MG/DL (40-60); POTASSIUM 4.3 MMOL/L (3.6-5.0); SODIUM 137 MMOL/L (135-145); TOTAL PROTEIN 6.1 GM/DL (6.4-8.2); TRIGLYCERIDES 81 MG/DL (<150); VLDL CHOLESTEROL 16 MG/DL (5-40)
--- NOTE | 2018-05-14 08:52 | Occupational Therapy Eval ---
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 Current History 33 yrs old w/f admitted to ER due to severe pain & Rt sided loss of peripheral vision . Reviewed History: Yes ADL-Prior Level of Function Therapy Code Descriptions/Definitions Functional [place] Measure: 0=Not Assessed/NA 4=Minimal Assistance 1=Total Assistance 5=Supervision or Setup 2=Maximal Assistance 6=Modified [place] 3=Moderate Assistance 7=Complete [place] Therapy Quality Codes: 6 Independent with activity with or without an assistive device 5 Patient requires set up or clean up by helper. Patient completes activity by themselves 4 Supervision or touching assist (CGA). [place] provide cues , steadying assist 3 The helper provides less than half the effort to complete the activity 2 The helper provides more than half the effort to complete the activity 1 Dependent. The helper does all the effort to complete an activity 7 Patient refused to complete or attempt activity 9 The patient did not perform the activity before the current illness or injury 88 Not attempted due to Medical conditions or safety concerns Functional Abilities and Goals: Independent: Patient completed the activities by him/herself, with or without an assistive device, with no assistance from a helper. Needed Some Help: Patient needed partial assistance from another person to complete activities. Dependent: A helper completed the activities for the patient. Unknown: Not Applicable: ADL PLOF Comments Pt lives at home & was Independent in all self care tasks , walking & IADLs. No driving due to lack of Driving permit OT Current Status ADL-Treatment Therapy Code Descriptions/Definitions Functional [place] Measure: 0=Not Assessed/NA 4=Minimal Assistance 1=Total Assistance 5=Supervision or Setup 2=Maximal Assistance 6=Modified [place] 3=Moderate Assistance 7=Complete [place] Therapy Quality Codes: 6 Independent with activity with or without an assistive device 5 Patient requires set up or clean up by helper. Patient completes activity by themselves 4 Supervision or touching assist (CGA). [place] provide cues , steadying assist 3 The helper provides less than half the effort to complete the activity 2 The helper provides more than half the effort to complete the activity 1 Dependent. The helper does all the effort to complete an activity 7 Patient refused to complete or attempt activity 9 The patient did not perform the activity before the current illness or injury 88 Not attempted due to Medical conditions or safety concerns OT Short Term Goals Short Term Goals 1=Demonstrate adherence to instructed precautions during ADL tasks. 2=Patient will verbalize/demonstrate understanding of assistive devices/ modifications for ADL. 3=Patient will improve strength/tolerance for activity to enable patient to perform ADL's. OT Buckle And Button Maker Goals Buckle And Button Maker Goals 1=Demonstrate adherence to instructed precautions during ADL tasks. 2=Patient will verbalize/demonstrate understanding of assistive devices/ modifications for ADL. 3=Patient will improve strength/tolerance for activity to enable patient to perform ADL's. OT Education/Plan Problem List/Assessment Assessment: Decreased Activ Tolerance, Decreased Safety Aware, Decreased UE Strength, Impaired Funct Balance, Impaired Self-Care Skills Discharge Recommendations Plan/Recommendations: Continue POC Therapy D/C Recommendations: Home w/ Family Support Treatment Plan/Plan of Care Treatment,Training & Education: Yes Patient would benefit from OT for education, treatment and training to promote independence in ADL's, mobility, safety and/or upper extremity function for ADL' s. Plan of Care: ADL Retraining, Functional Mobility, UE Funct Exercise/Act, UE Neuromus Re-Ed/Coord Frequency: 5 times per week Estimated Hrs Per Day: .25 hour per day Agreement: Yes Rehab Potential: Good Time/GCodes Start Time: 08:10 Stop Time: 08:35 Total Time Billed (hr/min): 25 Billed Treatment Time 1, EVL 13, FA 12 min. Total 25 minutes. MJ SWAIN OT May 14, 2018 08:52
--- NOTE | 2018-05-14 09:14 | Diagnostic Imaging Report ---
PROCEDURE: MR imaging of the brain without contrast. TECHNIQUE: Multiplanar, multisequence MR imaging of the brain was performed without contrast. INDICATION: Headaches and visual loss. Patient had a recently abnormal head CT demonstrating a subacute infarct and left posterior cerebral artery territory. Correlation is made with head CT one day earlier. There is a large area of diffusion restriction in the left occipital lobe and the posterior cerebral artery territory correlating with the CT abnormality. This is consistent with an acute/subacute infarct. There is a punctate region of diffusion restriction in the right occipital lobe consistent with microinfarct. There is also a small area of diffusion restriction in the right frontal cortex or subcortical region consistent with an acute infarct. Minimal and diffusion restriction in the posterior aspect of the left thalamus is seen. Normal expected flow-voids within the carotid siphons are seen. There is no midline shift. No acute intra-axial or extra-axial hemorrhage is detected. Corpus callosum is unremarkable. The sella and parasellar structures are unremarkable. IMPRESSION: Acute/subacute infarct in the left occipital lobe posterior cerebral artery territory. There are mitral infarcts in the posterior left thalamus as well as right occipital lobe and right frontal lobe. No intracranial hemorrhage is seen. Dictated by: Dictated on workstation # [id number]
[2018-05-14] MEDS: ASPIRIN 81 MG CHEW (CHILDREN'S ASA) PO SCH (09:28)
[2018-05-14] MEDS: IBUPROFEN TABLET 200 MG TAB PO PRN ×2 (09:28→19:08)
--- NOTE | 2018-05-14 09:50 | Physical Therapy Evaluation ---
PT Evaluation-General Medical Diagnosis Admission Date May 13, 2018 at 14:35 Medical Diagnosis: severe Headache, Acute ischemic Left HANDS PARTER stroke. Onset Date: May 13, 2018 Therapy Diagnosis Therapy Diagnosis: vision loss Height/Weight Height (Feet): 5 Height (Inches): 2.00 Weight (Pounds): 146 Weight (Ounces): 0.0 Precautions Precautions/Isolations: Fall Prevention, Standard Precautions Weight Bear Status Right Lower Extremity: Right Weight Bearing/Tolerated Left Lower Extremity: Left Weight Bearing/Tolerated Referral Physician: Laura Chacko MD Reason for Referral: Evaluation/Treatment Medical History Pertinent Medical History: CVA, Smoking Additional Medical History migraines Reviewed History: Yes Social History Home: Single Level Current Living Status: Spouse Entry Into Home: Stairs With Railing PT Steps Into Home: 4 Prior/Core FIM Prior Level of Function Therapy Code Descriptions/Definitions Functional [place] Measure: 0=Not Assessed/NA 4=Minimal Assistance 1=Total Assistance 5=Supervision or Setup 2=Maximal Assistance 6=Modified [place] 3=Moderate Assistance 7=Complete [place] Therapy Quality Codes: 6 Independent with activity with or without an assistive device 5 Patient requires set up or clean up by helper. Patient completes activity by themselves 4 Supervision or touching assist (CGA). [place] provide cues , steadying assist 3 The helper provides less than half the effort to complete the activity 2 The helper provides more than half the effort to complete the activity 1 Dependent. The helper does all the effort to complete an activity 7 Patient refused to complete or attempt activity 9 The patient did not perform the activity before the current illness or injury 88 Not attempted due to Medical conditions or safety concerns Functional Abilities and Goals: Independent: Patient completed the activities by him/herself, with or without an assistive device, with no assistance from a helper. Needed Some Help: Patient needed partial assistance from another person to complete activities. Dependent: A helper completed the activities for the patient. Unknown: Not Applicable: Bed Mobility: 7 Transfers (B,C,W/C) (FIM): 7 Gait: 7 Stairs: 7 Indoor Mobility (Ambulation): Independent Stairs: Independent PT Evaluation-Current Subjective Patient in bed pre tx, agrees to PT, has no complaints of pain. Patient states she has only been affected in her vision. Pt/Family Goals "to get her vision back to normal" Objective Patient Orientation: Person, Place, Situation ROM/Strength ROM Lower Extremities WNL Strength Lower Extremities 5/5 gross bilateral lower extremities except for 4+/5 hip flexion bilaterally Neuromuscular (Tone, Coordination, Reflexes) Patient has impaired peripheral vision in the right side, normal tracking, no facial asymmetry. Sensory Vision: Hearing: Functional Sensation Right Lower Extremit: Intact Sensation Left Lower Extremity: Intact Transfers Therapy Code Descriptions/Definitions Functional [place] Measure: 0=Not Assessed/NA 4=Minimal Assistance 1=Total Assistance 5=Supervision or Setup 2=Maximal Assistance 6=Modified [place] 3=Moderate Assistance 7=Complete [place] Transfers (B, C, W/C) (FIM): 7 Scootin Rollin Supine to/from Sit: 7 Sit to/from Stand: 7 Gait Mode of Locomotion: Walk Anticipated Mode of Locomotion: Walk Distance: 400' Gait Level of Assist: 7 Gait Assistive Device: None Comments/Gait Description Steady, brisk ambulation. Balance Sitting Static: Normal Sitting Dynamic: Normal Standing Static: Normal Standing Dynamic: Normal Assessment/Needs Patient had CVA but presents with only visual impairments. Rehab Potential: Good PT Plan Treatment/Plan Treatment Plan: Discontinue PT Treatment Plan: Other Treatment Duration: May 14, 2018 Frequency: Estimated Hrs Per Day: Other Patient and/or Family Agrees t: Yes Safety Risks/Education Patient Education: Gait Training, Transfer Techniques, Correct Positioning, Safety Issues Teaching Recipient: Patient Teaching Methods: Demonstration, Discussion Response to Teaching: Reinforcement Needed educated patient on adjusting to vision loss Discharge Recommendations Plan discharge Therapy D/C Recommendations: Home w/ Family Support Time/GCodes Time In: 934 Time Out: 944 Total Billed Treatment Time: 10 Total Billed Treatment 1 visit DOE KURTZ PT May 14, 2018 09:50
--- NOTE | 2018-05-14 09:58 | Progress Note-Hospitalist ---
Subjective HPI/CC On Admission Date Seen by Provider: May 14, 2018 Time Seen by Provider: 09:54 Pt is a 37yoCF with a PMH of tobacco abuse who presented to the ER due to right sided peripheral vision loss and headache. Her symptoms started on 05/11 when she woke up in the morning. She thought it was a migraine as she has a history of migraines and so she took ibuprofen. This did not improve her symptoms. She decided to seek care in the ER today as her symptoms were persistent. She complains of complete right sided peripheral vision loss still. She denies any other vision issues or deficits. She has no history of stroke or clotting disorder. She has no history of preeclampsia or other PIH syndromes in . CT head was done which revealed a left sided infarct. CTA Head and Neck showed a left occipital lobe infarct. She was admitted for further management. Subjective/Events-last exam Pt reports feeling well. Still has same visual deficit.No other deficits or complaints. Objective Exam Vital Signs Vital Signs Date Time Temp Pulse Resp B/P (MAP) Pulse Ox O2 Delivery O2 Flow Rate FiO2 05/14/18 08:00 99.0 70 18 95/59 (71) 97 Room Air Capillary Refill : Less Than 3 Seconds General Appearance: No Apparent Distress HEENT: Other (right peripheral vision loss) Respiratory: Lungs Clear, No Respiratory Distress Cardiovascular: Regular Rate, Rhythm, No JVD, No Murmur, Normal Peripheral Pulses Gastrointestinal: Normal Bowel Sounds, Non Tender, Soft Back: Normal Inspection Neurologic/Psychiatric: Alert, Oriented x3, Normal Mood/Affect, Other Results/Procedures Lab Laboratory Tests 05/13/18 12:15 05/14/18 05:05 Patient resulted labs reviewed. Imaging: Reviewed Imaging Report Assessment/Plan Assessment and Plan Assess & Plan/Chief Complaint Acute left VAMP PRESSER stroke Diagnosis/Problems Diagnosis/Problems (1) Acute ischemic left VAMP PRESSER stroke Assessment & Plan: MRI shows multiple areas of acute infarcts Discussed with radiologist who reviewed CTA with me again and now atherosclerotic disease Echo pending Cardiology consulted given age- discussed with Dr Ruvalcaba who recommends loop recorder PT/OT passed dysphagia screen Monitor on telemetry Lipid panel shows LDL of 124 I discussed with yunior Mcdonald, who recommended Factor V Leiden testing and outpatient follow up for further hypercoag testing in 3 months (2) Limited peripheral vision of right eye Status: Acute Assessment & Plan: Consistent with area of infarction [place] in ER spoke with Dr Lozano who will see as an outpatient (3) Tobacco abuse Assessment & Plan: Strongly recommended cessation Clinical Quality Measures DVT/VTE Risk/Contraindication: Risk Factor Score Per Nursin RFS Level Per Nursing on Admit: 2=Moderate MAXWELL VALADEZ MD May 14, 2018 09:58
--- NOTE | 2018-05-14 11:34 | Diagnostic Imaging Report ---
PROCEDURE: US Venous Lower Ext Bubba. TECHNIQUE: Multiple real-time grayscale images were obtained over the lower extremities in various projections, bilaterally. Additional duplex Doppler and color Doppler images were also obtained. INDICATION: Headache and blurred vision. There is no evidence of right or left lower extremity DVT. Both lower extremity deep venous system shows normal compressibility with normal response to augmentation and Valsalva. No fluid collection or mass is seen. IMPRESSION: No evidence of right or left lower extremity DVT. Dictated by: Dictated on workstation # [id number]
[2018-05-14] MEDS: NICOTINE 7 MG (NICODERM) PATCH TD SCH (11:37)
--- NOTE | 2018-05-14 12:04 | Occupational Therapy Eval ---
OT Evaluation-General/PLF Medical Diagnosis Admission Date May 13, 2018 at 14:35 Medical Diagnosis: severe Headache, Acute ischemic Left RN FLIGHT stroke. Onset Date: May 13, 2018 Therapy Diagnosis Therapy Diagnosis: Vision loss. Height/Weight Height (Feet): 5 Height (Inches): 2.00 Weight (Pounds): 146 Weight (Ounces): 0.0 Precautions Precautions/Isolations: Fall Prevention, Standard Precautions Safety Interventions: None Weight Bear Status Weight Bearing Restriction: Full Weight Bearing Location Restriction: L LE, R LE Referral Physician: Laura Chacko MD Referral Reason: Evaluation/Treatment, Strengthening/ROM Medical History Pertinent Medical History: CVA, Smoking Current History 33 yrs old w/f admitted in ER due to severe headache on Left side & causing Peripheral vision loss on Rt Eye. Reviewed History: Yes Social History Home: Single Level Current Living Status: Spouse Entry Into Home: Stairs With Railing Steps Into Home: 4 ADL-Prior Level of Function Therapy Code Descriptions/Definitions Functional [place] Measure: 0=Not Assessed/NA 4=Minimal Assistance 1=Total Assistance 5=Supervision or Setup 2=Maximal Assistance 6=Modified [place] 3=Moderate Assistance 7=Complete [place] Therapy Quality Codes: 6 Independent with activity with or without an assistive device 5 Patient requires set up or clean up by helper. Patient completes activity by themselves 4 Supervision or touching assist (CGA). Elverta provide cues , steadying assist 3 The helper provides less than half the effort to complete the activity 2 The helper provides more than half the effort to complete the activity 1 Dependent. The helper does all the effort to complete an activity 7 Patient refused to complete or attempt activity 9 The patient did not perform the activity before the current illness or injury 88 Not attempted due to Medical conditions or safety concerns Functional Abilities and Goals: Independent: Patient completed the activities by him/herself, with or without an assistive device, with no assistance from a helper. Needed Some Help: Patient needed partial assistance from another person to complete activities. Dependent: A helper completed the activities for the patient. Unknown: Not Applicable: Self Care: Independent Functional Cognition: Independent Drive Self: No OT Current Status Subjective Pt in bed, alert, oriented, cooperative & agree for therapy. Pt got up , jump out of bed, went to toilet , brushed teeth & came back presentable to talk to therapist. Pain Numeric Pain Scale: 0-No Pain Location: No Pain Reported Mental Status/Objective Patient Orientation: Person, Place, Time Current Glasses/Contacts: No Hearing Aids: No Dentures/Partials: No Hand Dominance: Right Upper Extremity ROM WFL Upper Extremity Coordination INTACT Upper Extremity Sensation Intact. Upper Extremity Strength MS in BUE -5/5 grossly graded. Endurance good ADL-Treatment ADL-Current Pt Independent in all ADLs & IADLs & ambulation without AD. Therapy Code Descriptions/Definitions Functional [place] Measure: 0=Not Assessed/NA 4=Minimal Assistance 1=Total Assistance 5=Supervision or Setup 2=Maximal Assistance 6=Modified [place] 3=Moderate Assistance 7=Complete [place] Therapy Quality Codes: 6 Independent with activity with or without an assistive device 5 Patient requires set up or clean up by helper. Patient completes activity by themselves 4 Supervision or touching assist (CGA). Elverta provide cues , steadying assist 3 The helper provides less than half the effort to complete the activity 2 The helper provides more than half the effort to complete the activity 1 Dependent. The helper does all the effort to complete an activity 7 Patient refused to complete or attempt activity 9 The patient did not perform the activity before the current illness or injury 88 Not attempted due to Medical conditions or safety concerns Eating (FIM): 7 Grooming (FIM): 7 Upper Body Dressing (FIM): 7 Lower Body Dressing (FIM): 7 Toileting (FIM): 7 Transfers (B, C, W/C) (FIM): 7 Toilet/Commode Transfer (FIM): 7 Education OT Patient Education: Correct positioning Teaching Recipient: Patient Teaching Methods: Demonstration Response to Teaching: Verbalize Understanding OT Short Term Goals Short Term Goals Time Frame: May 14, 2018 Additional Short Term Goals: 1-Demonstrate ADL Tasks, 2-Verbalize Understanding , 3-ImproveStrength/Eyla 1=Demonstrate adherence to instructed precautions during ADL tasks. 2=Patient will verbalize/demonstrate understanding of assistive devices/ modifications for ADL. 3=Patient will improve strength/tolerance for activity to enable patient to perform ADL's. OT Skilled Nursing Goals Skilled Nursing Goals Time Frame: May 14, 2018 Eating (FIM): 7 Grooming(FIM): 7 Bathing(FIM): 7 Upper Body Dressing(FIM): 7 Lower Body Dressing(FIM): 7 Toileting(FIM): 7 Transfers (B,C,W/C) (FIM): 7 Toilet/Commode Transfer(FIM): 7 Tub Transfer(FIM): 7 Shower Transfer(FIM): 7 Additional Goals: 1-Demonstrate ADL Tasks, 2-Verbalize Understanding, 3- ImproveStrength/Eyal 1=Demonstrate adherence to instructed precautions during ADL tasks. 2=Patient will verbalize/demonstrate understanding of assistive devices/ modifications for ADL. 3=Patient will improve strength/tolerance for activity to enable patient to perform ADL's. OT Education/Plan Discharge Recommendations Plan/Recommendations: Discontinue OT Therapy D/C Recommendations: Home w/ Family Support Equpiment Recommendations-D/C: None Patient/Family Goals To return home.Independently. Treatment Plan/Plan of Care Treatment,Training & Education: No D/C from OT Services.. Comment Patient Independent in all self care tasks, transfers, bed mobility, mobility without walker or cane, good standing balance. No need for skilled OT Treatment needed. Treatment Duration: May 14, 2018 Frequency: 5 times per week Estimated Hrs Per Day: Other Rehab Potential: Good Time/GCodes Start Time: 08:10 Stop Time: 08:35 Total Time Billed (hr/min): 25 Billed Treatment Time 1, Tony 13 min, FA 12 min Total 25 min MJ SWAIN OT May 14, 2018 12:04
--- NOTE | 2018-05-14 14:00 | Cardiology Progress Note ---
Cardiology SOAP Progress Note Subjective: No cardiac complaints. Objective: I&O/Vital Signs 05/14/18 05/14/18 05/14/18 05/14/18 04:16 07:06 08:00 12:00 Temp 97.9 99.0 98.0 Pulse 52 64 70 72 Resp 18 18 20 B/P (MAP) 110/73 (85) 95/59 (71) 120/74 (89) Pulse Ox 96 97 99 O2 Delivery Room Air Room Air Room Air 05/14/18 00:00 Intake Total 1080 ml Balance 1080 ml Weight (Pounds): 146 Weight (Ounces): 0.0 Weight (Calculated Kilograms): 66.309669 Constitutional: AAO x 3, well-developed, well-nourished Respiratory: No accessory muscle use, No respiratory distress, No chest tender ; chest expansion is symmetric, chest is bilaterally symmetric; No lungs clear to percussion; lungs clear to auscultation; No crackles, No rhonchi, No rales, No stridor, No wheezing, No pleural rub, No other Cardiovascular: regular rate-rhythm; No irregularly irregular, No extra beats, No parasternal heave is noted, No JVD, No edema, No bradycardia, No tachycardia , No point of maximal impulse, No cardiac thrills are palpable; S1 and S2; No gallop/S3, No gallop/S4, No diastolic murmur, No systolic murmur, No friction rub, No click, No other Gastrointestional: No tender; soft, round; No distended, No pulsatile mass, No organomegaly, No guarding, No rebound, No tenderness, No hernia, No mass; audible bowel sounds; No abnormal bowel sounds, No abdominal bruits, No spleenomegaly, No other Extremities: No normal range of motion, No non-tender, No normal inspection, No pedal edema, No calf tenderness, No normal capillary refill, No pelvis stable , No calf tenderness, No inflammation, No pedal edema, No slow capillary refill , No swelling, No other, No abrasion, No clubbing, No cyanosis, No ecchymosis, No laceration; no lower extremity edema bilateral; No significant edema, No tenderness, No wound Neurologic/Psychiatric: alert, normal mood/affect, oriented x 3; No aphasia, No facial droop, No motor weakness; grossly intact, power is 5/5 both on sides Skin: No normal color, No warm/dry, No cyanosis, No cool, No diaphoresis, No damp, No ecchymosis, No jaundice, No mottled, No pallor, No rash, No tattoos/ piercings, No ulcerations, No rash on exposed areas, No ulcerations on exposed areas, No other Results/Procedures: Labs Laboratory Tests 05/13/18 16:32: 05/14/18 05:05: White Blood Count 8.0, Red Blood Count 4.27L, Hemoglobin 14.1, Hematocrit 42, Mean Corpuscular Volume 97, Mean Corpuscular Hemoglobin 33, Mean Corpuscular Hemoglobin Concent 34, Red Cell Distribution Width 13.5, Platelet Count 283, Mean Platelet Volume 9.6, Neutrophils (%) (Auto) 51, Lymphocytes (%) (Auto) 36, Monocytes (%) (Auto) 10, Eosinophils (%) (Auto) 3, Basophils (%) (Auto) 1, Neutrophils # (Auto) 4.1, Lymphocytes # (Auto) 2.8, Monocytes # (Auto) 0.8, Eosinophils # (Auto) 0.2, Basophils # (Auto) 0.1, Sodium Level 137, Potassium Level 4.3, Chloride Level 109H, Carbon Dioxide Level 21, Anion Gap 7, Blood Urea Nitrogen 10, Creatinine 0.60, Estimat Glomerular Filtration Rate > 60, BUN/ Creatinine Ratio 17, Glucose Level 88, Calcium Level 8.5, Corrected Calcium 8.7 , Total Bilirubin 0.4, Aspartate Amino Transf (AST/SGOT) 18, Alanine Aminotransferase (ALT/SGPT) 12, Alkaline Phosphatase 43, Total Protein 6.1L, Albumin 3.7, Triglycerides Level 81, Cholesterol Level 186, LDL Cholesterol Direct 124, VLDL Cholesterol 16, HDL Cholesterol 51, Thyroid Stimulating Hormone (TSH) 1.09 05/14/18 10:25: D-Dimer 0.37 A/P: Assessment/Dx: 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 There is no evidence of hemorrhagic transformation, brain herniation, or midline shift per CTA of head on 05-13-18 Echo of 05/13/18: LVEF 60-65%, PASP approx 25 mmHg Tobaccoism - cessation advised H/O migraines Plan: Non-hemorrhagic CVA - management per medical services Transesophageal echocardiogram tomorrow to rule out embolic stroke. Bilateral lower extremity Dopplers to rule out DVT. Carotid ultrasound. Consider ILR for eval for cryptogenic stroke Discussed at length with patient and family. Informed consent for transesophageal echocardiogram was done. Thank you for your consultation. Please call me if you have any questions. Piter Ruvalcaba MD, FACP, FACC, FSCAI, FHRS, CCDS Interventional Cardiology Cardiac Electrophysiology Vascular Medicine and Endovascular Interventions Cherrie RUVALCABA MD May 14, 2018 14:00
[2018-05-14] MEDS: ATORVASTATIN 40 MG (LIPITOR) TABLET PO SCH (20:33)
[2018-05-15] VITALS (13 sets, daily range): BP systolic 92–133; BP diastolic 50–94
[2018-05-15] MEDS ORDERED: LIDOCAINE 2% VISCOUS 15 ML UDC ONE (07:50)
[2018-05-15] MEDS ORDERED: NS IV 1000 ML 1,000 ML ONE (07:50)
[2018-05-15] MEDS ORDERED: MIDAZOLAM 5 MG/5 ML (VERSED) VIAL ONE (07:57)
[2018-05-15] MEDS ORDERED: fentaNYL INJECTION 100 MCG/2 ML AMP ONE (07:57)
[2018-05-15] MEDS ORDERED: NICOTINE PATCH REMOVAL TP SCH (08:59)
[2018-05-15] MEDS ORDERED: NS IV 1000 ML 1,000 ML IV ONE (09:00)
--- NOTE | 2018-05-15 09:00 | NUR ---
PATIENT TO MIGUELITO WITH STAFF IN HOSPITAL BED.
[2018-05-15] MEDS ORDERED: LIDOCAINE 2% VISCOUS 15 ML UDC PO ONE (09:15)
[2018-05-15] MEDS ORDERED: MIDAZOLAM 5 MG/5 ML (VERSED) VIAL IV ONE (09:50)
[2018-05-15] MEDS ORDERED: fentaNYL INJECTION 100 MCG/2 ML AMP IV ONE (09:50)
[2018-05-15] MEDS ORDERED: LIDOCAINE 1% INJ 20 ML 20 ML VIAL ONE (10:19)
--- NOTE | 2018-05-15 11:08 | Discharge Inst-Simple/Standard ---
Discharge Inst-Standard Discharge Medications New, Converted or Re-Newed RX: Transmitted to Pharmacy Patient Instructions/Follow Up Plan of Care/Instructions/FU: Please continue to take your medications as written. Please follow up with your physicians as recommended to follow up your hospitalization. Activity as Tolerated: Yes Discharge Diet: No Restrictions Return to The Hospital For: Inability to use upper or lower extremity, facial droop, slurred speech, worsening vision, if you feel you are getting worse. MAXWELL VALADEZ MD May 15, 2018 11:08
[2018-05-15] MEDS ORDERED: APIX5TAB PO (11:10)
[2018-05-15] MEDS ORDERED: ASPI-999 PO (11:10)
[2018-05-15] MEDS ORDERED: ATOR40TA PO (11:10)
--- NOTE | 2018-05-15 11:18 | Cardiology Progress Note ---
Cardiology SOAP Progress Note Subjective: No cardiac symptoms. Objective: I&O/Vital Signs 05/15/18 05/15/18 05/15/18 05/15/18 07:00 08:00 09:00 09:10 Temp 97.8 Pulse 70 87 84 Resp 19 B/P (MAP) 127/75 (92) 115/80 (92) Pulse Ox 99 97 O2 Delivery Room Air Room Air Room Air 05/15/18 05/15/18 05/15/18 05/15/18 09:44 09:53 10:00 10:05 Pulse 79 83 94 82 B/P (MAP) 112/81 (91) 108/78 (88) 133/82 (99) 126/94 (105) Pulse Ox 100 100 100 99 O2 Delivery Nasal Cannula Nasal Cannula Nasal Cannula Nasal Cannula O2 Flow Rate 4.00 4.00 05/15/18 05/15/18 05/15/18 05/15/18 10:10 10:25 10:40 11:00 Pulse 85 78 81 88 B/P (MAP) 115/88 (97) 122/80 (94) 119/74 (89) 124/70 (88) Pulse Ox 98 97 98 98 O2 Delivery Room Air 05/15/18 05/15/18 11:52 13:38 Temp 98.4 Pulse 89 Resp 18 B/P (MAP) 113/71 (85) Pulse Ox 97 O2 Delivery Room Air 05/15/18 00:00 Intake Total 1300 ml Balance 1300 ml Weight (Pounds): 146 Weight (Ounces): 0.0 Weight (Calculated Kilograms): 66.352177 Constitutional: AAO x 3, well-developed, well-nourished Respiratory: No accessory muscle use, No respiratory distress, No chest tender ; chest expansion is symmetric, chest is bilaterally symmetric; No lungs clear to percussion; lungs clear to auscultation; No crackles, No rhonchi, No rales, No stridor, No wheezing, No pleural rub, No other Cardiovascular: regular rate-rhythm; No irregularly irregular, No extra beats, No parasternal heave is noted, No JVD, No edema, No bradycardia, No tachycardia , No point of maximal impulse, No cardiac thrills are palpable; S1 and S2; No gallop/S3, No gallop/S4, No diastolic murmur, No systolic murmur, No friction rub, No click, No other Gastrointestional: No tender; soft, round; No distended, No pulsatile mass, No organomegaly, No guarding, No rebound, No tenderness, No hernia, No mass; audible bowel sounds; No abnormal bowel sounds, No abdominal bruits, No spleenomegaly, No other Extremities: No normal range of motion, No non-tender, No normal inspection, No pedal edema, No calf tenderness, No normal capillary refill, No pelvis stable , No calf tenderness, No inflammation, No pedal edema, No slow capillary refill , No swelling, No other, No abrasion, No clubbing, No cyanosis, No ecchymosis, No laceration; no lower extremity edema bilateral; No significant edema, No tenderness, No wound Neurologic/Psychiatric: alert, normal mood/affect, oriented x 3; No aphasia, No facial droop, No motor weakness; grossly intact, power is 5/5 both on sides Skin: No normal color, No warm/dry, No cyanosis, No cool, No diaphoresis, No damp, No ecchymosis, No jaundice, No mottled, No pallor, No rash, No tattoos/ piercings, No ulcerations, No rash on exposed areas, No ulcerations on exposed areas, No other A/P: Assessment/Dx: 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 There is no evidence of hemorrhagic transformation, brain herniation, or midline shift per CTA of head on 05-13-18 Echo of 05/13/18: LVEF 60-65%, PASP approx 25 mmHg Tobaccoism - cessation advised H/O migraines Plan: Non-hemorrhagic CVA - management per medical services Transesophageal echocardiogram was done which did not show ASD, PFO. No vegetation on any valves. No thrombus in the left atrial appendage and left atrium. Bilateral lower extremity Dopplers to rule out DVT. Neck CTA did not show any carotid stenosis. ILR for eval for cryptogenic stroke ( negative telemetry, negative carotid stenosis, negative transesophageal echocardiogram) Follow-up as an outpatient. Thank you for your consultation. Please call me if you have any questions. Piter Ruvalcaba MD, FACP, FACC, FSCAI, FHRS, CCDS Interventional Cardiology Cardiac Electrophysiology Vascular Medicine and Endovascular Interventions Cherrie RUVALCABA MD May 15, 2018 11:17
--- NOTE | 2018-05-15 11:19 | Implantation of Loop Monitor ---
Implant of Loop Monitior PROCEDURE PHYSICIAN: Piter Ruvalcaba MD IMPLANTATION OF LOOP MONITOR REPORT DATE OF PROCEDURE: 05/15/18 ATTENDING PHYSICIAN: Dr. Mike Ruvalcaba. REFERRING PHYSICIAN: Dr. Aubrie Chacko PERFORMING PHYSICIAN: Dr. Mike Ruvalcaba. INDICATION: Cryptogenic stroke. PREOP DIAGNOSIS: Cryptogenic stroke. POSTOP DIAGNOSIS: Cryptogenic stroke, s/p implantation of loop recorder. PROCEDURE DETAILS: The patient is a 37 female with history of cryptogenic stroke. Therefore implantable loop recorder was discussed and agreed with the patient. Informed consent was taken. All risks and complications were discussed at length. The patient was draped and prepped in the usual sterile fashion. Local anesthesia was lidocaine, which was given in the substernal area close to the 4th intercostal space. Loop monitor was implanted according to the protocol. Steri- Strips were placed at the end of the procedure. There were no complications and the patient tolerated the procedure well. ANESTHESIA: Local anesthesia with lidocaine. COMPLICATIONS: None CONTRAST/FLUOROSCOPY: None CONCLUSION: 1. Successful implantation of loop monitor for cryptogenic stroke. 2. No complication and the patient tolerated the procedure well. 3. Discussed at length with the patient and recommended Eliquis for stroke prevention. Piter Ruvalcaba MD, RS, CCDS Cardiac Electrophysiology Cherrie RUVALCABA MD May 15, 2018 11:19
[2018-05-15] MEDS ORDERED: RIVA20TA PO (11:24)
--- NOTE | 2018-05-15 11:30 | NUR ---
CM/SS registration called this SW and asked if could meet with friends of the patient, that wanted to speak with a social worker palliative care. Brissa Portillo and her came to the fourth floor. They stated that Sravani had been staying with them for the last several weeks and that they had only known her for like 6mos. Brissa stated that she wanted to help the patient but that they had one rule for their home and that is that no alcohol or drugs be brought there, Sravani brought alcohol into their home 2xs over the last week and they will not be allowing her to stay with them. Brissa stated that her has been in recovery from alcohol for last 18yrs and having Sravani stay and her bringing alcohol in home was putting him at risk for relapse. They did bring some of the patient's belongings that they left in the patient's room. SW also spoke with Nicole (patient's mother) she stated that Sravani can not stay at her home as she is getting the children on 05/16 and Sravani is not allowed to be around the children. Patient has children ages 17, 14, 13, 8, and 4. The four older children live with their father and the 4yr old lives with the other set of grandparents. Nicole stated that Sravani would likely stay with her sister (Ashley Miner, [address] in [facility], ).
[2018-05-15] MEDS: ASPIRIN 81 MG CHEW (CHILDREN'S ASA) PO SCH (11:41)
[2018-05-15] MEDS: NICOTINE 7 MG (NICODERM) PATCH TD SCH (11:43)
--- NOTE | 2018-05-15 12:12 | Discharge Summary-Hospitalist ---
Diagnosis/Chief Complaint Date of Admission May 13, 2018 at 14:35 Date of Discharge Discharge Date: May 15, 2018 Admission Diagnosis Left occipital lobe infarct Discharge Diagnosis (1) Acute ischemic left LIBRARY DIRECTOR stroke Assessment & Plan: MRI ordered Echo ordered Cardiology consulted given age- consider holter monitor? PT/OT ordered passed dysphagia screen Monitor on telemetry Lipid panel in AM I discussed with yunior Mcdonald, who recommended Factor V Leiden testing and outpatient follow up for further hypercoag testing in 3 months (2) Limited peripheral vision of right eye Status: Acute Assessment & Plan: Consistent with area of infarction Ramsey in ER spoke with Dr Lozano who will see as an outpatient (3) Tobacco abuse Assessment & Plan: Strongly recommended cessation Discharge Summary Procedures/Consulations Dr Ruvalcaba- Cardiology Discharge Physical Exam Allergies: Coded Allergies: NKANo Known Allergies (Verified Allergy, Unknown, 04/26/05) Vitals & I&Os Vital Signs Date Time Temp Pulse Resp B/P (MAP) Pulse Ox O2 Delivery O2 Flow Rate FiO2 05/15/18 13:38 05/15/18 11:52 98.4 89 18 97 Room Air 05/15/18 10:05 4.00 General Appearance: No Apparent Distress, WD/WN Neurologic/Psychiatric: Alert, Oriented x3, Normal Mood/Affect Hospital Course Pt was admitted for acute left LIBRARY DIRECTOR infarct resulting in right sided peripheral vision loss. She underwent MRI as well which revealed the acute LIBRARY DIRECTOR infarct along with multiple other microinfarcts. Cardiology was consulted for evaluation given her young age and she underwent MIGUELITO which revealed no PFO or valvular abnormalities. Loop recorder was implanted to evaluate for occult arrhythmia. She underwent PT/OT evaluation which no other deficits noticed. She was discharged home in stable condition on Xarelto given high concern for embolic source of stroke after risks and benefits of anticoagulation where discussed with her. She is to follow up with Ike Truong at [facility] on 05/19, with Dr Ruvalcaba in 2 weeks, and with Dr Mohan as an outpatient. Labs (last 24 hrs) Patient resulted labs reviewed. Radiology Reviewed Date of Exam: 05/14/18 MRI BRAIN W/O CONTRAST PROCEDURE: MR imaging of the brain without contrast. TECHNIQUE: Multiplanar, multisequence MR imaging of the brain was performed without contrast. INDICATION: Headaches and visual loss. Patient had a recently abnormal head CT demonstrating a subacute infarct and left posterior cerebral artery territory. Correlation is made with head CT one day earlier. There is a large area of diffusion restriction in the left occipital lobe and the posterior cerebral artery territory correlating with the CT abnormality. This is consistent with an acute/subacute infarct. There is a punctate region of diffusion restriction in the right occipital lobe consistent with microinfarct. There is also a small area of diffusion restriction in the right frontal cortex or subcortical region consistent with an acute infarct. Minimal and diffusion restriction in the posterior aspect of the left thalamus is seen. Normal expected flow-voids within the carotid siphons are seen. There is no midline shift. No acute intra-axial or extra-axial hemorrhage is detected. Corpus callosum is unremarkable. The sella and parasellar structures are unremarkable. IMPRESSION: Acute/subacute infarct in the left occipital lobe posterior cerebral artery territory. There are mitral infarcts in the posterior left thalamus as well as right occipital lobe and right frontal lobe. No intracranial hemorrhage is seen. Imaging: Reviewed Imaging Report Discussion & Recommendations Discharge Planning: >30 minutes discharge planning Discharge Home Medications: Active Scripts Active Xarelto (Rivaroxaban) 20 Mg Tablet 20 Mg PO DAILY Lipitor (Atorvastatin Calcium) 40 Mg Tablet 40 Mg PO HS Aspirin 81 Mg Tab.chew 81 Mg PO DAILY@0900 Reported Advil (Ibuprofen) 200 Mg Tablet 400-800 Mg PO Q8H PRN Multivitamins (Multivitamin) 1 Each Tablet 1 Tab PO DAILY Instructions to patient/family Please see electronic discharge instructions given to patient. Clinical Quality Measures DVT/VTE Risk/Contraindication: Risk Factor Score Per Nursin RFS Level Per Nursing on Admit: 2=Moderate Copy Copies To 1: [facility]/MAXWELL FARAH MD May 15, 2018 12:12
== END 2018-05-15 13:30 | disposition home or self-care (01) | DRG 42 ==
LOC: EDUNIT# 08:56 → ER 08:58 → 4TH 14:35
PROVIDERS: ADMIT Family Medicine; ATTEND Family Medicine
PROC: 0JH632Z Insertion of Monitoring Device into Chest Subcutaneous Tissue and Fascia, Percutaneous Approach (ICD-10-PCS; principal; 2018-05-15)
DX: I63.9 Cerebral infarction, unspecified (principal); I69.398 Other sequelae of cerebral infarction; R29.701 NIHSS score 1; G43.909 Migraine, unspecified, not intractable, without status migrainosus; F17.210 Nicotine dependence, cigarettes, uncomplicated
CPT/HCPCS: 33285; 36415; 70450; 70496; 70498; 70551; 71045; 80053; 80061; 81000; 81241; 83036; 84443; 84484; 84703; 85025; 85379; 85610; 85730; 93005; 93041; 93306; 93312; 93320; 93325; 93970

== ENCOUNTER 2018-05-16 11:15 | Emergency (ER) | payer SELFPAY ==
[~2018-05-16] VITALS: Ht 162.6 cm; Wt 66.2 kg
[~2018-05-16 11:15] MED LIST: APIX5TAB PO; ASPI-999 PO; ATOR40TA PO; IBUP-30 PO; MULT1TAB69 PO; RIVA20TA PO
--- NOTE | 2018-05-16 11:40 | ED Neurological Problem ---
General Stated Complaint: NUMBNESS ON LEFT SIDE, Source: patient Exam Limitations: no limitations History of Present Illness Date Seen by Provider: May 16, 2018 Time Seen by Provider: 11:35 Initial Comments To ER per private vehicle with reports of numbness on her left side including left face left arm and left leg. SHe also reports a headache. She awakened with these symptoms this morning. She was discharged from the hospital yesterday following an admission for an acute stroke in the posterior cerebral artery territory left occipital region. Her deficits were right lateral vision loss in the right eye only for which she is following with optometry. (She states this only affects the lateral visual field of the right eye, not the medial aspect of the visual field of left eye as well.) She had no troubles with speech gait or numbness. Upon awakening this morning she had the aforementioned symptoms. She is ambulatory to room 9 with a markedly abnormal gait dragging her left leg. She was discharged home with a loop recorder having been implanted due to concern for embolic nature of stroke. She is on Xarelto has not missed any doses of this. CT angiogram that was done last week failed to reveal any significant stenosis in head or neck circulation. Timing/Duration: 1 week Severity: moderate Associated Symptoms: No confusion, No fever/chills Allergies and Home Medications Allergies Coded Allergies: NKANo Known Allergies (Verified Allergy, Unknown, 04/26/05) Home Medications Aspirin 81 Mg Tab.chew, 81 MG PO DAILY@0900 Prescribed by: MAXWELL VALADEZ on 05/15/18 1140 Atorvastatin Calcium 40 Mg Tablet, 40 MG PO HS Prescribed by: MAXWELL VALADEZ on 05/15/18 1140 Ibuprofen 200 Mg Tablet, 400-800 MG PO Q8H PRN for PAIN-MILD, (Reported) Multivitamin 1 Each Tablet, 1 TAB PO DAILY, (Reported) Rivaroxaban 20 Mg Tablet, 20 MG PO DAILY Prescribed by: MAXWELL VALADEZ on 05/15/18 1124 Patient Home Medication List Home Medication List Reviewed: Yes Review of Systems Review of Systems Constitutional: see HPI; No chills, No dizziness, No fever Eyes: No Symptoms Reported Ears, Nose, Mouth, Throat: no symptoms reported Respiratory: no symptoms reported Cardiovascular: no symptoms reported Genitourinary: no symptoms reported Musculoskeletal: no symptoms reported Skin: no symptoms reported Psychiatric/Neurological: See HPI; Denies Cognitive Dysfunction; Headache Endocrine: No Symptoms Reported Hematologic/Lymphatic: No Symptoms Reported Past Oopmysc-Lvggmq-Ohbeuw Hx Patient Social History Type Used: Cigarettes Recent Foreign Travel: No Contact w/Someone Who Travel: No Recent Hopitalizations: No Immunizations Up To Date Tetanus Booster (TDap): Unknown PED Vaccines UTD: Yes Seasonal Allergies Seasonal Allergies: No Past Medical History Surgeries: Yes (WISDOM TEETH REMOVED) Respiratory: No Cardiac: No Neurological: Yes Genitourinary: No Gastrointestinal: No Musculoskeletal: No Endocrine: No HEENT: No Cancer: No Psychosocial: No Integumentary: No Blood Disorders: No Family Medical History Hypertension 19 FATHER No Pertinent Family Hx Physical Exam Vital Signs Capillary Refill : Height, Weight, BMI Height: 5'2.00" Weight: 146lbs. 0.0oz. [id number]; 26.7 BMI Method:Stated General Appearance: WD/WN, no apparent distress HEENT: PERRL/EOMI, normal ENT inspection Neck: non-tender, full range of motion Respiratory: lungs clear, normal breath sounds, no respiratory distress, no accessory muscle use Cardiovascular: regular rate, rhythm, no murmur Gastrointestinal: normal bowel sounds, non tender, soft Neurologic/Psychiatric: alert, normal mood/affect, oriented x 3 Crainal Nerves: normal hearing, normal speech, PERRL Coordination/Gait: abnormal gait, ABN nose to finger (L) Motor/Sensory: weak motor strength LUE, weak motor strength LLE Skin: normal color, warm/dry Stroke Onset of Symptoms Date of Onset of Symptoms: May 16, 2018 Time of Symptom Onset: 11:41 Onset of Symptoms: No Symptoms onset unknown: Yes NIH Stroke Scale Assessment Select: Initial Level of Consciousness: 0=Alert (0), Level of Consciousness- Questions: 0=Answers both month/age (0), LOC Commands: 0=Performs both tasks (0) , Gaze: Normal (0), Visual Parnell: 1=Partial hemianopia (1), Facial Movement ( Facial Paresis): 0=Normal symmetrical mnt (0), Motor Function-Arms Right: 0=No drift (0), Motor Function-Arms Left: 2=Some effort/gravity (2), Motor Function- Legs Right: 0=No drift (0), Motor Function-Legs Left: 1=Drift (1), Limb Ataxia: 1=Present in one limb (1), Sensory: 1=Mild to Moderate loss (1), Best Language: 0=No aphasia (0), Dysarthria: 0=Normal (0), Extinction & Inattention: 0=No abnormality (0), Total: 6 Stroke Thrombolytic Exclusion Age 18 or Over: Yes History of CVA: No Uncontrolled Coagulation Defec: No Intracranial Hemorrhage: No Severe Hypertension: No GI or Bleed: No Subarachnoid Hemorrhage: No Intracranial Neoplasm/Aneurysm: No Oral Anticoagulants: Yes Surgery or Trauma: No Puncture of Non-Compressible V: No Recent CPR: No Diabetic Hemorrhagic Retinopat: No Organ Biopsy: No Recent Obstetric Delivery: No Glucose: No Significant Hepatic Dysfunctio: No NIH Stoke Scale >22: No Bacterial Endocarditis: No Pericarditis: No Improving Symptoms: No Platelets: No TPA Contraindication: Yes Progress/Results/Core Measures Results/Orders Lab Results Laboratory Tests Test 05/16/18 11:30 05/16/18 12:15 Range/Units White Blood Count 11.4 H 4.3-11.0 10^3/uL Red Blood Count 4.36 4.35-5.85 10^6/uL Hemoglobin 14.6 11.5-16.0 G/DL Hematocrit 43 35-52 % Mean Corpuscular Volume 98 80-99 FL Mean Corpuscular Hemoglobin 34 25-34 PG Mean Corpuscular Hemoglobin Concent 34 32-36 G/DL Red Cell Distribution Width 13.4 10.0-14.5 % Platelet Count 292 130-400 10^3/uL Mean Platelet Volume 9.9 7.4-10.4 FL Neutrophils (%) (Auto) 65 42-75 % Lymphocytes (%) (Auto) 28 12-44 % Monocytes (%) (Auto) 5 0-12 % Eosinophils (%) (Auto) 1 0-10 % Basophils (%) (Auto) 0 0-10 % Neutrophils # (Auto) 7.5 1.8-7.8 X 10^3 Lymphocytes # (Auto) 3.2 1.0-4.0 X 10^3 Monocytes # (Auto) 0.6 0.0-1.0 X 10^3 Eosinophils # (Auto) 0.1 0.0-0.3 10^3/uL Basophils # (Auto) 0.0 0.0-0.1 10^3/uL Prothrombin Time 13.0 12.2-14.7 SEC INR Comment 1.0 0.8-1.4 Activated Partial Thromboplast Time 26 24-35 SEC D-Dimer 0.41 0.00-0.49 UG/ML Sodium Level 138 135-145 MMOL/L Potassium Level 3.9 3.6-5.0 MMOL/L Chloride Level 106 98-107 MMOL/L Carbon Dioxide Level 25 21-32 MMOL/L Anion Gap 7 5-14 MMOL/L Blood Urea Nitrogen 9 7-18 MG/DL Creatinine 0.68 0.60-1.30 MG/DL Estimat Glomerular Filtration Rate > 60 BUN/Creatinine Ratio 13 Glucose Level 118 H 70-105 MG/DL Calcium Level 9.6 8.5-10.1 MG/DL Corrected Calcium 9.4 8.5-10.1 MG/DL Total Bilirubin 0.3 0.1-1.0 MG/DL Aspartate Amino Transf (AST/SGOT) 17 5-34 U/L Alanine Aminotransferase (ALT/SGPT) 15 0-55 U/L Alkaline Phosphatase 49 40-136 U/L Troponin I < 0.028 <0.028 NG/ML Total Protein 7.1 6.4-8.2 GM/DL Albumin 4.3 3.2-4.5 GM/DL My Orders Orders - KAROLINA ELMORE APRN Cbc With Automated Diff (05/16/18 11:34) Protime With Inr (05/16/18 11:34) Partial Thromboplastin Time (05/16/18 11:34) Comprehensive Metabolic Panel (05/16/18 11:34) Fibrin Degradation Products (05/16/18 11:34) Troponin I (05/16/18 11:34) Ua Culture If Indicated (05/16/18 11:34) Chest 1 View, Ap/Pa Only (05/16/18 11:34) Ekg Tracing (05/16/18 11:34) Nothing By Mouth (05/16/18 Dinner) Accucheck Stat ONCE (05/16/18 11:34) Saline Lock/Iv-Start (05/16/18 11:34) Saline Lock/Iv-Start (05/16/18 11:34) Vital Signs Stroke Patient Q15M (05/16/18 11:34) Ct Head Wo-R/O Stroke (05/16/18 11:34) O2 (05/16/18 11:34) Intake & Output 06,14,22 (05/16/18 11:34) Monitor-Rhythm Ecg Trace Only (05/16/18 11:34) Dysphagia Screening Tool (05/16/18 11:34) Lipid Panel (05/17/18 06:00) Erythrocyte Sedimentation Rate (05/16/18 11:56) Diagnostic Imaging Diagonstic Imaging: Xray, CT Plain Films/CT/US/NM/MRI: chest Comments NAME: [facility] REC#: [id number] PT STATUS: REG ER : 1980 PHYSICIAN: KAROLINA ELMORE APRN ADMIT DATE: 05/16/18/ER Draft Date of Exam:05/16/18 CHEST 1 VIEW, AP/PA ONLY INDICATION: Stroke left-sided weakness. TIME OF EXAM: 11:50 AM CORRELATION is made with prior study from 05/13/2018. FINDINGS: Cardiac monitoring device overlies the left chest. The lungs are clear. The pulmonary vascularity is normal. No infiltrate, effusion or pneumothorax is seen. IMPRESSION: No acute cardiopulmonary processes is detected. Dictated on workstation # [id number] Dict: 05/16/18 1201 Trans: 05/16/18 1202 [facility] [id number] Interpreted by: EVON MCMANUS MD Electronically signed by: Departure Communication (Admissions) 1230-discussed the case with Dr. Ruvalcaba from cardiology here and Dr. Angelo from hospitalist service here both of whom recommend transfer to a center with neurology capabilities given the recurrent stroke. 1234-I discussed with the on-call neurologist at . Accepted the patient in transfer Impression Primary Impression: Recurrent strokes Disposition: XFER SHT-TRM HOSP Condition: Stable Departure-Patient Inst. Referrals: NO,LOCAL PHYSICIAN (PCP) Primary Care Physician KAROLINA ELMORE APRN May 16, 2018 11:40
[2018-05-16 11:48] LABS: BASOPHILS % (AUTO) 0 % (0-10); EOSINOPHILS # (AUTO) 0.1 10^3/uL (0.0-0.3); EOSINOPHILS % (AUTO) 1 % (0-10); HEMATOCRIT 43 % (35-52); HEMOGLOBIN 14.6 G/DL (11.5-16.0); LYMPHOCYTES # (AUTO) 3.2 X 10^3 (1.0-4.0); LYMPHOCYTES % (AUTO) 28 % (12-44); MEAN CORPUSCULAR HEMOGLOBIN 34 PG (25-34); MEAN CORPUSCULAR HGB CONC 34 G/DL (32-36); MEAN CORPUSCULAR VOLUME 98 FL (80-99); MEAN PLATELET VOLUME 9.9 FL (7.4-10.4); MONOCYTES # (AUTO) 0.6 X 10^3 (0.0-1.0); MONOCYTES % (AUTO) 5 % (0-12); NEUTROPHILS # (AUTO) 7.5 X 10^3 (1.8-7.8); NEUTROPHILS % (AUTO) 65 % (42-75); PLATELET COUNT 292 10^3/uL (130-400); RED CELL DISTRIBUTION WIDTH 13.4 % (10.0-14.5); WHITE BLOOD COUNT 11.4 10^3/uL (4.3-11.0)
[2018-05-16 11:58] LABS: ALANINE AMINOTRANSFERASE 15 U/L (0-55); ALBUMIN 4.3 GM/DL (3.2-4.5); ALKALINE PHOSPHATASE 49 U/L (40-136); BILIRUBIN,TOTAL 0.3 MG/DL (0.1-1.0); BUN/CREATININE RATIO 13; CALCIUM 9.6 MG/DL (8.5-10.1); CARBON DIOXIDE 25 MMOL/L (21-32); CHLORIDE 106 MMOL/L (98-107); CREATININE SERUM 0.68 MG/DL (0.60-1.30); GFR ESTIMATED > 60; GLUCOSE 118 MG/DL (70-105); POTASSIUM 3.9 MMOL/L (3.6-5.0); SODIUM 138 MMOL/L (135-145); TOTAL PROTEIN 7.1 GM/DL (6.4-8.2)
--- NOTE | 2018-05-16 12:03 | Diagnostic Imaging Report ---
INDICATION: Stroke left-sided weakness. TIME OF EXAM: 11:50 AM CORRELATION is made with prior study from 05/13/2018. FINDINGS: Cardiac monitoring device overlies the left chest. The lungs are clear. The pulmonary vascularity is normal. No infiltrate, effusion or pneumothorax is seen. IMPRESSION: No acute cardiopulmonary processes is detected. Dictated by: Dictated on workstation # [id number]
--- NOTE | 2018-05-16 12:12 | Consultation-Cardiology ---
HPI-Cardiology Cardiology Consultation: Date of Consultation 05/16/18 Date of Admission Attending Physician Admitting Physician Deepika,Local Physician Consulting Physician Cherrie RUVALCABA MD HPI: Time Seen by a Provider: 12:02 Chief Complaint: left sided numbness This is a 37 year old lady who was discharged yesterday and presents with new neurological deficits including left upper and lower extremity numbness. She presented a few days ago with visual symptoms and an acute stroke in the posterior cerebral artery left occipital region. Negative carotid stenosis. Negative transesophageal echocardiogram for cardiac embolization. No ASD or PFO noted. No vegetation on the valves. No thrombus in the LV, left atrium, left atrial appendage. Implantable loop recorder was placed yesterday. She was started on Xarelto and has taken those dosages. Last dose was yesterday. Therefore she has not missed any dosages yet. Any syncope, near-syncope, palpitations, chest pain, shortness of breath. Review of Systems-Cardiology Review of Systems Constitutional: As described under HPI; No As described under HPI, No no symptoms reported, No chills, No fever, No lightheadedness Eyes: No As described under HPI, No no symptoms reported, No blindness, No blurred vision, No contact lenses, No drainage, No decreased acuity, No foreign body sensation, No pain, No vision change Ears/Nose/Throat: No As described under HPI, No no symptoms reported, No chronic hearing loss, No ear discharge, No ear pain, No nasal drainage, No ulcerations Respiratory: No no symptoms reported; As described under HPI; No As described under HPI, No cough, No orthopnea, No shortness of breath, No SOB with excertion Cardiovascular: No no symptoms reported; As described under HPI; No As described under HPI, No chest pain, No edema, No irregular heart rate, No lightheadedness, No palpitations Gastrointestinal: No no symptoms reported, No As described under HPI, No abdomen distended, No abdominal pain, No blood streaked bowels, No constipation , No diarrhea, No nausea, No vomiting, No stool coloration changes Genitourinary: No As described under HPI, No burning, No dysuria, No discharge , No frequency, No flank pain, No hematuria, No urgency : Yes : No Skin: No rash, No skin related problems, No ulcerations Psychiatric/Neurological: numbness; No anxiety, No depression, No seizure, No focal weakness, No syncope Hematologic: No bleeding abnormalities PUE-Xopavd-Areldd Hx Patient Social History Type Used: Cigarettes Recent Foreign Travel: No Immunizations Up To Date Tetanus Booster (TDap): Unknown Past Medical History PMH As described under Assessment. Family Medical History Family Medical History: No reported family h/o CAD or CVA. No reported family h/o premature SCD. Family History: Hypertension 19 FATHER Allergies and Home Medications Allergies Coded Allergies: NKANo Known Allergies (Verified Allergy, Unknown, 04/26/05) Home Medications Aspirin 81 Mg Tab.chew, 81 MG PO DAILY@0900 Prescribed by: MAXWELL VALADEZ on 05/15/18 1140 Atorvastatin Calcium 40 Mg Tablet, 40 MG PO HS Prescribed by: MAXWELL VALADEZ on 05/15/18 1140 Ibuprofen 200 Mg Tablet, 400-800 MG PO Q8H PRN for PAIN-MILD, (Reported) Multivitamin 1 Each Tablet, 1 TAB PO DAILY, (Reported) Rivaroxaban 20 Mg Tablet, 20 MG PO DAILY Prescribed by: MAXWELL VALDAEZ on 05/15/18 1124 Patient Home Medication List Home Medication List Reviewed: Yes Physical Exam-Cardiology Physical Exam Vital Signs/I&O Capillary Refill : Constitutional: appears stated age; No apparent distress; well-developed, well- nourished HEENT: PERRL; No normal ENT inspection, No TMs normal, No pharynx normal, No scleral icterus (R), No scleral icterus (L), No pale conjunctivae (R), No pale conjunctivae (L), No photophobia, No TM abnormal (R), No TM abnormal (L), No pharyngeal erythema, No tonsillar exudate, No other, No discharge, No EOMI; hearing is well preserved; No hard of hearing; oral hygience is good; No ulceration, No xanthelasmas are seen Neck: No non-tender, No full range of motion, No supple, No normal inspection, No carotid bruit, No limited range of motion, No lymphadenopathy (R), No lymphadenopathy (L), No tender lateral, No tender midline, No thyromegaly, No other; carotid pulses are 2 + bilaterally; No with good upstrokes Respiratory: No accessory muscle use, No respiratory distress, No chest tender , No chest expansion is symmetric; chest is bilaterally symmetric; No lungs clear to percussion; lungs clear to auscultation; No crackles, No rhonchi, No rales, No stridor, No wheezing, No pleural rub, No other Cardiovascular: regular rate-rhythm; No irregularly irregular, No extra beats, No parasternal heave is noted, No JVD, No edema, No bradycardia, No tachycardia , No point of maximal impulse, No cardiac thrills are palpable; S1 and S2; No gallop/S3, No gallop/S4, No diastolic murmur, No systolic murmur, No friction rub, No click, No other Gastrointestinal: No tender, No soft, No round, No distended, No pulsatile mass , No organomegaly, No guarding, No rebound, No tenderness, No hernia, No mass, No audible bowel sounds, No abnormal bowel sounds, No abdominal bruits, No spleenomegaly, No other Rectal: deferred Extremities: No normal range of motion, No non-tender, No normal inspection, No pedal edema, No calf tenderness, No normal capillary refill, No pelvis stable , No calf tenderness, No inflammation, No pedal edema, No slow capillary refill , No swelling, No other, No abrasion, No clubbing, No cyanosis, No ecchymosis, No laceration, No no lower extremity edema bilateral, No significant edema, No tenderness, No wound Neurologic/Psychiatric: alert, normal mood/affect, oriented x 3, sensory deficit, power is 5/5 both on sides Skin: No normal color, No warm/dry, No cyanosis, No cool, No diaphoresis, No damp, No ecchymosis, No jaundice, No mottled, No pallor, No rash, No tattoos/ piercings, No ulcerations, No rash on exposed areas, No ulcerations on exposed areas, No other Data Review Labs Laboratory Tests 05/16/18 11:30: White Blood Count 11.4H, Red Blood Count 4.36, Hemoglobin 14.6, Hematocrit 43, Mean Corpuscular Volume 98, Mean Corpuscular Hemoglobin 34, Mean Corpuscular Hemoglobin Concent 34, Red Cell Distribution Width 13.4, Platelet Count 292, Mean Platelet Volume 9.9, Neutrophils (%) (Auto) 65, Lymphocytes (%) (Auto) 28, Monocytes (%) (Auto) 5, Eosinophils (%) (Auto) 1, Basophils (%) (Auto) 0, Neutrophils # (Auto) 7.5, Lymphocytes # (Auto) 3.2, Monocytes # (Auto) 0.6, Eosinophils # (Auto) 0.1, Basophils # (Auto) 0.0, Sodium Level 138, Potassium Level 3.9, Chloride Level 106, Carbon Dioxide Level 25, Anion Gap 7, Blood Urea Nitrogen 9, Creatinine 0.68, Estimat Glomerular Filtration Rate > 60, BUN/ Creatinine Ratio 13, Glucose Level 118H, Calcium Level 9.6, Corrected Calcium 9.4, Total Bilirubin 0.3, Aspartate Amino Transf (AST/SGOT) 17, Alanine Aminotransferase (ALT/SGPT) 15, Alkaline Phosphatase 49, Total Protein 7.1, Albumin 4.3 ECG Impression ECG Initial ECG Rhythm: Normal Sinus Initial ECG Impression: Normal A/P-Cardiology Assessment/Admission Diagnosis Recurrent stroke like symptoms. Plan Recurrent stroke like symptoms on Xarelto. No source of thrombotic or embolic stroke identified. Negative MIGUELITO, negative telemetry for 48-78 hours, negative CT angiography of the carotids. CT head is pending. I'm concerned about vasculitis and recommend neurology inpatient evaluation. Continue Xarelto for now. Continue device follow-up as an outpatient. Thank you for your consultation. Please call me if you have any questions. Piter Ruvalcaba MD, FACP, FACC, FSCAI, FHRS, CCDS Interventional Cardiology Cardiac Electrophysiology Vascular Medicine and Endovascular Interventions Clinical Quality Measures Stroke: Date of last known well: May 16, 2018 Time of last known well: 11:41 Symptoms onset unknown: Yes Cherrie RUVALCABA MD May 16, 2018 12:12
[2018-05-16 12:13] LABS: FIBRIN DEGRADATION PRODUCTS 0.41 UG/ML (0.00-0.49)
--- NOTE | 2018-05-16 12:13 | Diagnostic Imaging Report ---
CLINICAL INDICATION: Stroke protocol. Patient was just released yesterday for stroke. Patient having new symptoms, left-sided weakness. EXAM: Axial CT scan of the brain performed without IV contrast. COMPARISON: MRI of the brain without contrast dated 05/14/2018. FINDINGS: There is stable size and appearance and evolution with low density involving the left occipital lobe consistent with acute/subacute infarct, seen on the prior study. The focal areas of infarct involving the right cerebral hemisphere demonstrate low-density changes. There is curvilinear high density in the left occipital lobe. This may represent laminar necrosis, but hemorrhagic transformation cannot be completely excluded. There is no brain herniation or midline shift. There is no hydrocephalus. Basal cisterns are unremarkable. The extracranial soft tissue, skull, and orbits are unremarkable. There is a moderate area of mucosal thickening and secretions involving the sphenoid sinus. Temporal bone structures show no significant abnormality. IMPRESSION: 1: Interval evolution of the acute/subacute infarct involving the left occipital lobe and small focal areas in the right cerebral hemisphere. There is curvilinear slight high density in the left occipital lobe region. This may represent laminar necrosis of the cortex, but hemorrhagic transformation cannot be completely excluded. MRI of the brain without contrast would better evaluate. 2: There is no other significant abnormality seen. Results of this report were discussed with Jordon Nagy APRN, via the telephone on 05/16/2018 at 1205 hours. Dictated by: Dictated on workstation # [id number]
[2018-05-16 12:24] LABS: BILIRUBIN,URINE NEGATIVE (NEGATIVE); CLARITY,URINE CLEAR; COLOR,URINE YELLOW; GLUCOSE, URINE (UA) NEGATIVE (NEGATIVE); KETONES,URINE NEGATIVE (NEGATIVE); LEUKOCYTE ESTERASE ,URINE 1+ (NEGATIVE); NITRITE,URINE NEGATIVE (NEGATIVE); PH,URINE 6.5 (5-9); PROTEIN,URINE 2+ (NEGATIVE); UROBILINOGEN,URINE NORMAL (NORMAL)
[2018-05-16 12:44] LABS: BACTERIA,URINE TRACE /HPF; WBC,URINE 0-2 /HPF
[2018-05-16 13:40] VITALS: BP 123/95
== END 2018-05-16 13:40 | disposition short-term general hospital (02) ==
LOC: EDUNIT# 11:15 → ER 11:17
DX: I63.9 Cerebral infarction, unspecified (principal); Z79.82 Long term (current) use of aspirin; Z79.01 Long term (current) use of anticoagulants; Z98.890 Other specified postprocedural states
CPT/HCPCS: 36415; 70450; 71045; 80053; 81000; 84484; 85025; 85379; 85610; 85652; 85730; 93005; 93041

== ENCOUNTER 2021-02-10 09:27 | Emergency (ER) | payer BC, OTHER ==
[~2021-02-10] VITALS: Ht 162 cm; Wt 85.0 kg
[~2021-02-10 09:27] MED LIST changes: +MULT-567 PO; -MULT1TAB69 PO; -RIVA20TA PO; +RIVA20TA2 PO
[2021-02-10] MEDS ORDERED: NS IV 1000 ML 1,000 ML IV STA (09:44)
[2021-02-10 09:45] VITALS: BP_SYST 129; BP_SYST 140; BP_DIAS 100; BP_DIAS 96
[2021-02-10] MEDS ORDERED: MECLIZINE 25 MG (ANTIVERT) TAB PO ONE (09:45)
[2021-02-10 09:51] VITALS: BP 149/96
--- NOTE | 2021-02-10 10:08 | ED General ---
General Chief Complaint: Dizziness/Syncope Stated Complaint: DIZZY,LIGHTHEADED Nursing Triage Note: Jose has presented to ER with cc of dizziess, light headed, and nausea. She has vomited 1 time this mornig. She reports that this spell of dizziness has been an ongoing problem over the last 2 years. She reports that the dizziness last a few minutes and goes away - this happens about 2 times per week. She has not seen her doctor and came to ER today for evaluation. History of Present Illness Date Seen by Provider: Feb 10, 2021 Time Seen by Provider: 10:06 Initial Comments 40-year-old female presents with some dizziness "lightheadedness and nausea. She reports that she had vomited one time this morning. She reports that his dizziness has been an ongoing problem for at least the last 2 years when she states she has some small strokes. She reports that normally lasts few minutes and go away. That this happens a couple times or more a week. She presents today because it did not go away as fast as normal. She denies any vision changes otherwise, chest pain, cough, diarrhea, fever or chills. Patient with no other systemic complaints. Allergies and Home Medications Allergies Coded Allergies: Johnnie Known Allergies (Verified Allergy, Unknown, 04/26/05) Patient Home Medication List Home Medication List Reviewed: Yes Aspirin (Aspirin) 81 Mg Tab.chew, 81 MG PO DAILY@0900 Prescribed by: MAXWELL VALADEZ on 05/15/18 1140 Atorvastatin Calcium (Lipitor) 40 Mg Tablet, 40 MG PO HS Prescribed by: MAXWELL VALADEZ on 05/15/18 1140 Ibuprofen (Advil) 200 Mg Tablet, 400-800 MG PO Q8H PRN for PAIN-MILD, (Reported) Entered as Reported by: KENNETH HALL on 05/13/18 155 Multivitamin (Multivitamins) 1 Each Tablet, 1 TAB PO DAILY, (Reported) Entered as Reported by: KENNETH HALL on 05/13/18 155 Rivaroxaban (Xarelto Tablet) 20 Mg Tablet, 20 MG PO DAILY Prescribed by: MAXWELL VALADEZ on 05/15/18 1124 Review of Systems Review of Systems Constitutional: No chills; dizziness; No fever EENTM: no symptoms reported Respiratory: No cough, No short of breath Cardiovascular: see HPI; No chest pain, No palpitations, No syncope Gastrointestinal: No abdominal pain, No constipation, No diarrhea; nausea, vomiting Genitourinary: no symptoms reported Musculoskeletal: no symptoms reported Skin: no symptoms reported Psychiatric/Neurological: See HPI Hematologic/Lymphatic: No Symptoms Reported Immunological/Allergic: no symptoms reported Past Nelapwp-Ajrnyp-Xdircu Hx Patient Social History Tobacco Use?: Yes Tobacco type used: Cigarettes Smoking Status: Current Everyday Smoker Use of E-Cig and/or Vaping dev: No Substance use?: No Alcohol Use?: No Pt feels they are or have been: No Immunizations Up To Date Tetanus Booster (TDap): Unknown PED Vaccines UTD: Yes Seasonal Allergies Seasonal Allergies: No Past Medical History Surgeries: Yes (WISDOM TEETH REMOVED) Respiratory: No Cardiac: No Neurological: Yes Genitourinary: No Gastrointestinal: No Musculoskeletal: No Endocrine: No HEENT: No Cancer: No Psychosocial: No Integumentary: No Blood Disorders: No Family Medical History Hypertension 19 FATHER No Pertinent Family Hx Physical Exam Vital Signs Vital Signs - First Documented 02/10/21 09:51 Temp 36.5 Resp 16 O2 Delivery Room Air Capillary Refill : Height, Weight, BMI Height: 5'4.00" Weight: 146lbs. 0.0oz. [id number]; 32.00 BMI Method:Stated General Appearance: No Apparent Distress Eyes: Bilateral Eye Normal Inspection HEENT: PERRL/EOMI, Moist Mucous Membranes Neck: Non Tender, Supple Respiratory: Lungs Clear, Normal Breath Sounds Cardiovascular: Regular Rate, Rhythm, No Edema Gastrointestinal: Non Tender, Soft Extremity: Normal Capillary Refill, Normal Inspection, Normal Range of Motion Neurologic/Psychiatric: Alert, Oriented x3, No Motor/Sensory Deficits, Normal Mood/Affect Skin: Normal Color, Warm/Dry Progress/Results/Core Measures Suspected Sepsis SIRS Temperature: Pulse: 77 Respiratory Rate: 16 Laboratory Tests 02/10/21 09:52: White Blood Count 14.0H Blood Pressure 149 /96 Mean: 113 Laboratory Tests 02/10/21 09:52: Creatinine 0.64, Platelet Count 262, Total Bilirubin 0.3 Results/Orders Lab Results Laboratory Tests Test 02/10/21 09:52 02/10/21 10:00 02/10/21 10:45 Range/Units White Blood Count 14.0 H 4.3-11.0 10^3/uL Red Blood Count 4.80 3.80-5.11 10^6/uL Hemoglobin 15.4 11.5-16.0 g/dL Hematocrit 45 35-52 % Mean Corpuscular Volume 94 80-99 fL Mean Corpuscular Hemoglobin 32 25-34 pg Mean Corpuscular Hemoglobin Concent 34 32-36 g/dL Red Cell Distribution Width 13.4 10.0-14.5 % Platelet Count 262 130-400 10^3/uL Mean Platelet Volume 10.1 9.0-12.2 fL Immature Granulocyte % (Auto) 0 % Neutrophils (%) (Auto) 67 42-75 % Lymphocytes (%) (Auto) 23 12-44 % Monocytes (%) (Auto) 7 0-12 % Eosinophils (%) (Auto) 2 0-10 % Basophils (%) (Auto) 1 0-10 % Neutrophils # (Auto) 9.4 H 1.8-7.8 X 10^3 Lymphocytes # (Auto) 3.2 1.0-4.0 X 10^3 Monocytes # (Auto) 1.0 0.0-1.0 X 10^3 Eosinophils # (Auto) 0.2 0.0-0.3 10^3/uL Basophils # (Auto) 0.1 0.0-0.1 10^3/uL Immature Granulocyte # (Auto) 0.0 0.0-0.1 10^3/uL Neutrophils % (Manual) 55 % Lymphocytes % (Manual) 36 % Monocytes % (Manual) 6 % Eosinophils % (Manual) 1 % Basophils % (Manual) 0 % Band Neutrophils 2 % Sodium Level 135 135-145 MMOL/L Potassium Level 4.5 3.6-5.0 MMOL/L Chloride Level 101 98-107 MMOL/L Carbon Dioxide Level 21 21-32 MMOL/L Anion Gap 13 5-14 MMOL/L Blood Urea Nitrogen 11 7-18 MG/DL Creatinine 0.64 0.60-1.30 MG/DL Estimat Glomerular Filtration Rate 102 BUN/Creatinine Ratio 17 Glucose Level 96 70-105 MG/DL Calcium Level 9.2 8.5-10.1 MG/DL Corrected Calcium 9.0 8.5-10.1 MG/DL Magnesium Level 1.8 1.6-2.4 MG/DL Total Bilirubin 0.3 0.1-1.0 MG/DL Aspartate Amino Transf (AST/SGOT) 15 5-34 U/L Alanine Aminotransferase (ALT/SGPT) 15 0-55 U/L Alkaline Phosphatase 67 40-136 U/L Troponin I < 0.30 <0.30 NG/ML C-Reactive Protein 0.30 <0.50 MG/DL Total Protein 7.6 6.4-8.2 GM/DL Albumin 4.3 3.2-4.5 GM/DL Urine Color YELLOW Urine Clarity CLEAR Urine pH 5.5 5-9 Urine Specific Serena 1.010 L 1.016-1.022 Urine Protein NEGATIVE NEGATIVE Urine Glucose (UA) NEGATIVE NEGATIVE Urine Ketones NEGATIVE NEGATIVE Urine Nitrite NEGATIVE NEGATIVE Urine Bilirubin NEGATIVE NEGATIVE Urine Urobilinogen 0.2 < = 1.0 MG/DL Urine Leukocyte Esterase NEGATIVE NEGATIVE Urine RBC (Auto) NEGATIVE NEGATIVE Urine RBC RARE /HPF Urine WBC RARE /HPF Urine Squamous Epithelial Cells 0-2 /HPF Urine Crystals NONE /LPF Urine Bacteria NEGATIVE /HPF Urine Casts NONE /LPF Urine Mucus NEGATIVE /LPF Urine Culture Indicated NO Urine Test NEGATIVE NEGATIVE My Orders Orders - HARDIN,JASPREET L DO Ct Head Wo-R/O Stroke (02/10/21 09:41) Cbc With Automated Diff (02/10/21 09:41) Comprehensive Metabolic Panel (02/10/21 09:41) Hcg,Qualitative Urine (02/10/21 09:41) Magnesium (02/10/21 09:41) Ua Culture If Indicated (02/10/21 09:41) Crp Fs (02/10/21 09:41) Troponin I Fs (02/10/21 09:41) Ekg Tracing (02/10/21 09:41) Covid 19 Inhouse Test (02/10/21 09:41) Ns Iv 1000 Ml (Sodium Chloride 0.9%) (02/10/21 09:44) Meclizine Tablet (Antivert Tablet) (02/10/21 09:45) Manual Differential (02/10/21 09:52) Medications Given in ED Current Medications Medications Dose Ordered Sig/Padma Route Start Time Stop Time Status Last Admin Dose Admin Meclizine HCl 25 mg ONCE ONCE PO 02/10/21 09:45 02/10/21 09:46 DC 02/10/21 10:00 25 MG Vital Signs/I&O 1202/10/21 02/10/21 09:45 09:45 09:51 Temp 36.5 Pulse 77 80 77 Resp 16 B/P (MAP) 140/96 (111) 129/100 (110) 149/96 (113) O2 Delivery Room Air Capillary Refill : Blood Pressure Mean: 113 Progress Note : Progress Note Patient symptoms improved following IV fluids and meclizine. Patient did tell the nurse later in the conversation that she just started new antidepressant medication. Discussed with her that that could be the cause of her worsening of her underlying dizziness that she already has. I would encourage her to follow- up with her primary care provider and review all of her medications and symptoms. And they can perform any further work-up as needed if symptoms or not improving ECG Initial ECG Impression Date: Feb 10, 2021 Initial ECG Impression Time: 10:00 Initial ECG Rate: 63 Initial ECG Rhythm: Normal Sinus Initial ECG Intervals: Normal Initial ECG Impression: Normal Departure Impression Primary Impression: Dizziness Disposition: 01 HOME, SELF-CARE Condition: Stable Departure-Patient Inst. Referrals: ANUEL CUADRA APRN (PCP) Primary Care Physician RENETTA MESA MD (Family) Primary Care Physician Patient Instructions: Dizziness, Adult ED, Dealing with Dizziness from the Drugs You Take Add. Discharge Instructions: Follow-up with your primary care provider for recheck of your symptoms. Drink plenty of fluids You may use [id number] meclizine/Antivert as directed on package All discharge instructions reviewed with patient and/or family. Voiced understanding. JASPREET HARDIN DO Feb 10, 2021 10:08
[2021-02-10 10:12] LABS: BASOPHILS % (AUTO) 1 % (0-10); EOSINOPHILS % (AUTO) 2 % (0-10); HEMATOCRIT 45 % (35-52); HEMOGLOBIN 15.4 g/dL (11.5-16.0); LYMPHOCYTES % (AUTO) 23 % (12-44); MEAN CORPUSCULAR HEMOGLOBIN 32 pg (25-34); MEAN CORPUSCULAR HGB CONC 34 g/dL (32-36); MEAN CORPUSCULAR VOLUME 94 fL (80-99); MEAN PLATELET VOLUME 10.1 fL (9.0-12.2); MONOCYTES % (AUTO) 7 % (0-12); NEUTROPHILS % (AUTO) 67 % (42-75); PLATELET COUNT 262 10^3/uL (130-400)
--- NOTE | 2021-02-10 10:12 | Diagnostic Imaging Report ---
PROCEDURE: CT head wo r/o stroke. TECHNIQUE: Multiple contiguous axial images were obtained through the brain without the use of intravenous contrast. Auto Exposure Controls were utilized during the CT exam to meet ALARA standards for radiation dose reduction. INDICATION: Dizziness and vertigo. Correlation is made with prior head CT from 05/16/2018. 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 There is an area of encephalomalacia in the right parietal lobe from prior infarct. No sulcal effacement is seen. There is no midline shift. No acute intra-axial or extra-axial hemorrhage is detected. Cisterns are patent. Visualized paranasal sinuses are clear. IMPRESSION: Chronic changes. No acute intracranial process is detected. Dictated by: Dictated on workstation # [id number]
[2021-02-10 10:13] LABS: BASOPHILS # (AUTO) 0.1 10^3/uL (0.0-0.1); EOSINOPHILS # (AUTO) 0.2 10^3/uL (0.0-0.3); LYMPHOCYTES # (AUTO) 3.2 X 10^3 (1.0-4.0); NEUTROPHILS # (AUTO) 9.4 X 10^3 (1.8-7.8)
[2021-02-10 10:43] LABS: BILIRUBIN,TOTAL 0.3 MG/DL (0.1-1.0); BUN/CREATININE RATIO 17; CALCIUM 9.2 MG/DL (8.5-10.1); CARBON DIOXIDE 21 MMOL/L (21-32); CHLORIDE 101 MMOL/L (98-107); CREATININE SERUM 0.64 MG/DL (0.60-1.30); GFR ESTIMATED 102; GLUCOSE 96 MG/DL (70-105); MAGNESIUM 1.8 MG/DL (1.6-2.4); POTASSIUM 4.5 MMOL/L (3.6-5.0); SODIUM 135 MMOL/L (135-145)
[2021-02-10 10:44] LABS: ALANINE AMINOTRANSFERASE 15 U/L (0-55); ALBUMIN 4.3 GM/DL (3.2-4.5); ALKALINE PHOSPHATASE 67 U/L (40-136); TOTAL PROTEIN 7.6 GM/DL (6.4-8.2)
[2021-02-10 10:58] LABS: BAND NEUTROPHILS 2 %; BASOPHILS % (MANUAL) 0 %; EOSINOPHILS % (MANUAL) 1 %; LYMPHOCYTES % (MANUAL) 36 %; MONOCYTES % (MANUAL) 6 %; NEUTROPHILS % (MANUAL) 55 %
[2021-02-10 10:59] LABS: BILIRUBIN,URINE NEGATIVE (NEGATIVE); CLARITY,URINE CLEAR; COLOR,URINE YELLOW; GLUCOSE, URINE (UA) NEGATIVE (NEGATIVE); KETONES,URINE NEGATIVE (NEGATIVE); LEUKOCYTE ESTERASE ,URINE NEGATIVE (NEGATIVE); NITRITE,URINE NEGATIVE (NEGATIVE); PH,URINE 5.5 (5-9); PROTEIN,URINE NEGATIVE (NEGATIVE)
[2021-02-10 11:08] LABS: BACTERIA,URINE NEGATIVE /HPF; RBC,URINE RARE /HPF; SQUAMOUS EPITHELIAL CELL,UR 0-2 /HPF; WBC,URINE RARE /HPF
== END 2021-02-10 11:48 | disposition home or self-care (01) ==
LOC: EDUNIT# 09:27 → ER FS 09:30
DX: R42 Dizziness and giddiness (principal); F17.210 Nicotine dependence, cigarettes, uncomplicated; Z20.822 Contact with and (suspected) exposure to COVID-19; Z79.82 Long term (current) use of aspirin; Z79.01 Long term (current) use of anticoagulants
CPT/HCPCS: 36415; 70450; 80053; 81000; 83735; 84484; 84703; 85007; 85027; 86141; 87636; 93005

== ENCOUNTER 2021-03-29 09:54 | Observation (INO) | payer BC ==
[~2021-03-29] VITALS: Ht 162.5 cm; Wt 86.0 kg
[2021-03-29] MEDS ORDERED: NS IV 1000 ML 1,000 ML IV STA (10:23)
[2021-03-29] MEDS ORDERED: ONDANSETRON 4 MG/2 ML (SDV) Z0FRAN IVP STA (10:23)
[2021-03-29] MEDS ORDERED: ACETAMINOPHEN 500 MG TAB (TYLENOL) PO STA (10:23)
[2021-03-29 10:26] LABS: HEMATOCRIT 47 % (35-52); HEMOGLOBIN 15.8 g/dL (11.5-16.0); LYMPHOCYTES % (AUTO) 42 % (12-44); MEAN CORPUSCULAR HEMOGLOBIN 32 pg (25-34); MEAN CORPUSCULAR HGB CONC 34 g/dL (32-36); MEAN CORPUSCULAR VOLUME 93 fL (80-99); MONOCYTES % (AUTO) 9 % (0-12); NEUTROPHILS % (AUTO) 47 % (42-75); PLATELET COUNT 294 10^3/uL (130-400)
[2021-03-29 10:27] LABS: BASOPHILS # (AUTO) 0.1 10^3/uL (0.0-0.1); BASOPHILS % (AUTO) 0 % (0-10); EOSINOPHILS # (AUTO) 0.2 10^3/uL (0.0-0.3); EOSINOPHILS % (AUTO) 1 % (0-10); LYMPHOCYTES # (AUTO) 6.7 X 10^3 (1.0-4.0); MONOCYTES # (AUTO) 1.4 X 10^3 (0.0-1.0); NEUTROPHILS # (AUTO) 7.5 X 10^3 (1.8-7.8)
[2021-03-29 10:30] LABS: INR 0.9 (0.8-1.4); PROTHROMBIN TIME PATIENT 12.2 SEC (12.2-14.7)
--- NOTE | 2021-03-29 10:33 | ED General ---
General Chief Complaint: Head/Cervical Problems Stated Complaint: HEADACHE Nursing Triage Note: PT REPORTS SHE GOT UP FROM HER DESK AT WORK AND BECAME DIZZY AND STARTED HAVING A STABBING PAIN IN THE LEFT SIDE OF THE HEAD. Source of Information: Patient History of Present Illness Date Seen by Provider: Mar 29, 2021 Time Seen by Provider: 10:00 Initial Comments 40-year-old female presenting with complaints of sudden onset of 9:20 AM of left-sided stabbing headache and dizziness. She had nausea associated with this. She states that she had just gone to the bathroom and was walking back to her desk at work. She felt like her hands and lips were numb as well. She feels like "something is not right". She was having sensation of general weakness on arrival to the ED. She states that the numbness had resolved. 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 She denies any trouble swallowing, forming words, understanding words. She has a history of prior TIA and strokes. She states that she has had intracranial hemorrhage and been seen at [facility]. She reports that the neurologist had released her and did not feel that she needed to be seen by them anymore. When asked why she did not follow with neurology she told me that the neurologist had not found a reason for her to have strokes and so they decided she did not need to see them any longer when she was discharged. She states that she had been prescribed a medicine for anxiety but she felt that she did not need it and she was not taking it routinely so she has not refilled it recently. She was diagnosed with COVID on March 17 and had started having symptoms on the . She was still having cough and shortness of breath so she had gone to see her regular provider in the clinic and they put her on a Z-Rogelio and inhaler. She is on day 5 of the Z-Rogelio. She did not take anything for her headache. She rates her headache 5 or 6 out of 10. The pain is a constant stabbing pain to the left side of her head. Severity: Moderate Associated Systoms: No Chest Pain; Cough; No Diaphoresis, No Fever/Chills; Headaches; No Loss of Appetite, No Malaise; Nausea/Vomiting (nausea but no emesis); No Rash, No Seizure, No Shortness of Air, No Syncope; Weakness (feels weak overall) Allergies and Home Medications Allergies Coded Allergies: NKANo Known Allergies (Verified Allergy, Unknown, 04/26/05) Patient Home Medication List Home Medication List Reviewed: Yes Ibuprofen (Advil) 200 Mg Tablet, 400-800 MG PO Q8H PRN for PAIN-MILD, (Reported) Entered as Reported by: KENNETH HALL on 05/13/18 1553 Multivitamin (Multivitamins) 1 Each Tablet, 1 TAB PO DAILY, (Reported) Entered as Reported by: KENNETH HALL on 05/13/18 1553 Discontinued Medications Aspirin (Aspirin) 81 Mg Tab.chew, 81 MG PO DAILY@0900 Prescribed by: MAXWELL VALADEZ on 05/15/18 1140 Last Action: Discontinued Atorvastatin Calcium (Lipitor) 40 Mg Tablet, 40 MG PO HS Prescribed by: MAXWELL VALADEZ on 05/15/18 1140 Last Action: Discontinued Rivaroxaban (Xarelto Tablet) 20 Mg Tablet, 20 MG PO DAILY Prescribed by: MAXWELL VALADEZ on 05/15/18 1124 Last Action: Discontinued Review of Systems Review of Systems Constitutional: see HPI; No chills, No diaphoresis, No fever EENTM: vision loss (pt reports 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 She felt it was slightly worse since headache started.); No ear discharge, No hearing loss, No ear pain, No double vision, No epistaxis, No nose congestion, No throat pain Respiratory: cough; No short of breath, No stridor, No wheezing Cardiovascular: No chest pain Gastrointestinal: nausea; No vomiting Genitourinary: No dysuria Musculoskeletal: No muscle pain, No neck pain Skin: No rash Psychiatric/Neurological: See HPI, Anxiety (worried she is having another stroke), Headache (sharp left sided headache onset around 920 am), Numbness (bilateral hands and lips initially, resolved prior to arrival in ED), Weakness (feels like she is weak overall) Hematologic/Lymphatic: Denies Blood Clots Past Ypnlxto-Tudpef-Bzvwxs Hx Patient Social History Tobacco Use?: Yes Tobacco type used: Cigarettes Smoking Status: Current Everyday Smoker Use of E-Cig and/or Vaping dev: No Substance use?: No Alcohol Use?: Yes Alcohol type: Beer Alcohol Frequency: Daily Pt feels they are or have been: No Immunizations Up To Date Tetanus Booster (TDap): Unknown PED Vaccines UTD: Yes Seasonal Allergies Seasonal Allergies: No Past Medical History Surgery/Hospitalization HX: Covid-22 Mar 2021, TIA, CVA 2018, Tobacco abuse, Daily Alcohol use Surgeries: Yes (WISDOM TEETH REMOVED) Respiratory: No Cardiac: No Neurological: Yes Genitourinary: No Gastrointestinal: No Musculoskeletal: No Endocrine: No HEENT: No Cancer: No Psychosocial: No Integumentary: No Blood Disorders: No Family Medical History Hypertension 19 FATHER No Pertinent Family Hx Physical Exam Vital Signs Vital Signs - First Documented 03/29/21 09:57 Temp 36.2 Pulse 71 Resp 18 B/P (MAP) 133/100 (111) Pulse Ox 99 O2 Delivery Room Air Capillary Refill : Less Than 3 Seconds Height, Weight, BMI Height: 5'4.00" Weight: 146lbs. 0.0oz. 66.420863pw; 32.00 BMI Method:Stated General Appearance: No Apparent Distress, WD/WN Eyes: Bilateral Eye PERRL, Bilateral Eye EOMI HEENT: Pharynx Normal, Moist Mucous Membranes Neck: Full Range of Motion, Normal Inspection, Non Tender, Supple Respiratory: Chest Non Tender, Lungs Clear, Normal Breath Sounds, No Accessory Muscle Use, No Respiratory Distress Cardiovascular: Regular Rate, Rhythm, No Murmur, Normal Peripheral Pulses Gastrointestinal: Normal Bowel Sounds, No Pulsatile Mass, Non Tender, Soft Rectal: Deferred Extremity: Normal Capillary Refill, Normal Inspection, Normal Range of Motion, Non Tender, No Calf Tenderness, No Pedal Edema Neurologic/Psychiatric: Alert, Oriented x3, No Motor/Sensory Deficits, gray tender II- XII Norm as Tested; No Aphasia, No Facial Droop, No Motor Weakness, No Sensory Deficit; Other (appears slightly anxious) Skin: Normal Color, Warm/Dry; No Rash Progress/Results/Core Measures Suspected Sepsis SIRS Temperature: Pulse: 71 Respiratory Rate: 18 Laboratory Tests 03/29/21 10:05: White Blood Count 16.0H Blood Pressure 133 /100 Mean: 111 Laboratory Tests 03/29/21 10:05: Creatinine 0.67, INR Comment 0.9, Platelet Count 294, Total Bilirubin 0.3 Results/Orders Lab Results Laboratory Tests Test 03/29/21 10:05 03/29/21 12:11 Range/Units White Blood Count 16.0 H 4.3-11.0 10^3/uL Red Blood Count 5.00 3.80-5.11 10^6/uL Hemoglobin 15.8 11.5-16.0 g/dL Hematocrit 47 35-52 % Mean Corpuscular Volume 93 80-99 fL Mean Corpuscular Hemoglobin 32 25-34 pg Mean Corpuscular Hemoglobin Concent 34 32-36 g/dL Red Cell Distribution Width 13.2 10.0-14.5 % Platelet Count 294 130-400 10^3/uL Mean Platelet Volume 10.0 9.0-12.2 fL Immature Granulocyte % (Auto) 0 % Neutrophils (%) (Auto) 47 42-75 % Lymphocytes (%) (Auto) 42 12-44 % Monocytes (%) (Auto) 9 0-12 % Eosinophils (%) (Auto) 1 0-10 % Basophils (%) (Auto) 0 0-10 % Neutrophils # (Auto) 7.5 1.8-7.8 X 10^3 Lymphocytes # (Auto) 6.7 H 1.0-4.0 X 10^3 Monocytes # (Auto) 1.4 H 0.0-1.0 X 10^3 Eosinophils # (Auto) 0.2 0.0-0.3 10^3/uL Basophils # (Auto) 0.1 0.0-0.1 10^3/uL Immature Granulocyte # (Auto) 0.1 0.0-0.1 10^3/uL Neutrophils % (Manual) 50 % Lymphocytes % (Manual) 15 % Monocytes % (Manual) 9 % Eosinophils % (Manual) 2 % Basophils % (Manual) 0 % Band Neutrophils 2 % Atypical Lymphocytes 22 % Platelet Estimate NORMAL Blood Morphology Comment NORMAL Prothrombin Time 12.2 12.2-14.7 SEC INR Comment 0.9 0.8-1.4 Activated Partial Thromboplast Time 25 24-35 SEC Sodium Level 137 135-145 MMOL/L Potassium Level 3.6 3.6-5.0 MMOL/L Chloride Level 102 98-107 MMOL/L Carbon Dioxide Level 23 21-32 MMOL/L Anion Gap 12 5-14 MMOL/L Blood Urea Nitrogen 15 7-18 MG/DL Creatinine 0.67 0.60-1.30 MG/DL Estimat Glomerular Filtration Rate 113 BUN/Creatinine Ratio 22 Glucose Level 86 70-105 MG/DL Calcium Level 9.1 8.5-10.1 MG/DL Corrected Calcium 8.9 8.5-10.1 MG/DL Magnesium Level 1.9 1.6-2.4 MG/DL Total Bilirubin 0.3 0.1-1.0 MG/DL Aspartate Amino Transf (AST/SGOT) 15 5-34 U/L Alanine Aminotransferase (ALT/SGPT) 19 0-55 U/L Alkaline Phosphatase 62 40-136 U/L Total Protein 7.2 6.4-8.2 GM/DL Albumin 4.2 3.2-4.5 GM/DL Serum Alcohol < 10 <10 MG/DL Urine Color YELLOW Urine Clarity CLEAR Urine pH 6.0 5-9 Urine Specific [place] 1.010 L 1.016-1.022 Urine Protein NEGATIVE NEGATIVE Urine Glucose (UA) NEGATIVE NEGATIVE Urine Ketones NEGATIVE NEGATIVE Urine Nitrite NEGATIVE NEGATIVE Urine Bilirubin NEGATIVE NEGATIVE Urine Urobilinogen 0.2 < = 1.0 MG/DL Urine Leukocyte Esterase NEGATIVE NEGATIVE Urine RBC (Auto) NEGATIVE NEGATIVE Urine RBC NONE /HPF Urine WBC 0-2 /HPF Urine Squamous Epithelial Cells 5-10 /HPF Urine Crystals NONE /LPF Urine Bacteria TRACE /HPF Urine Casts NONE /LPF Urine Mucus NEGATIVE /LPF Urine Culture Indicated NO Urine Opiates Screen NEGATIVE NEGATIVE Urine Oxycodone Screen NEGATIVE NEGATIVE Urine Methadone Screen NEGATIVE NEGATIVE Urine Propoxyphene Screen NEGATIVE NEGATIVE Urine Barbiturates Screen NEGATIVE NEGATIVE Ur Tricyclic Antidepressants Screen NEGATIVE NEGATIVE Urine Phencyclidine Screen NEGATIVE NEGATIVE Urine Amphetamines Screen NEGATIVE NEGATIVE Urine Methamphetamines Screen NEGATIVE NEGATIVE Urine Benzodiazepines Screen NEGATIVE NEGATIVE Urine Cocaine Screen NEGATIVE NEGATIVE Urine Cannabinoids Screen NEGATIVE NEGATIVE My Orders Orders - DOMINICK MADERA MD Cbc With Automated Diff (03/29/21 10:05) Magnesium (03/29/21 10:05) Comprehensive Metabolic Panel (03/29/21 10:05) Protime With Inr (03/29/21 10:05) Partial Thromboplastin Time (03/29/21 10:05) O2 (03/29/21 10:05) Monitor-Rhythm Ecg Trace Only (03/29/21 10:05) Ed Iv/Invasive Line Start (03/29/21 10:05) Alcohol (03/29/21 10:05) Ua Culture If Indicated (03/29/21 10:05) Drug Screen Stat (Urine) (03/29/21 10:05) Ct Head Wo (03/29/21 10:05) Ekg Tracing (03/29/21 10:23) Ondansetron Injection (Zofran Injectio (03/29/21 10:23) Acetaminophen Tablet (Tylenol Tablet) (03/29/21 10:23) Ns Iv 1000 Ml (Sodium Chloride 0.9%) (03/29/21 10:23) Manual Differential (03/29/21 10:05) Ct Angio Head/Neck (03/29/21 11:38) Iohexol Injection (Omnipaque 350 Mg/Ml 1 (03/29/21 11:45) Received Contrast (Hold Metformin- Contr (03/29/21 11:45) Sodium Chloride Flush (Catheter Flush Sy (03/29/21 11:45) Ns (Ivpb) (Sodium Chloride 0.9% Ivpb Bag (03/29/21 11:45) Ed Admission (Communication) (03/29/21 13:03) Medications Given in ED Current Medications Medications Dose Ordered Sig/Padma Route Start Time Stop Time Status Last Admin Dose Admin Iohexol 75 ml ONCE ONCE IV 03/29/21 11:45 03/29/21 11:46 DC 03/29/21 11:57 75 ML Sodium Chloride 10 ml NEEDED PRN IV 03/29/21 11:45 03/29/21 11:57 10 ML Sodium Chloride 100 ml ONCE ONCE IV 03/29/21 11:45 03/29/21 11:46 DC 03/29/21 11:57 100 ML Vital Signs/I&O 03/29/21 09:57 Temp 36.2 Pulse 71 Resp 18 B/P (MAP) 133/100 (111) Pulse Ox 99 O2 Delivery Room Air Capillary Refill : Less Than 3 Seconds Blood Pressure Mean: 111 Progress Note #1: Progress Note Check CT scan of head to evaluate for bleeding or acute stroke. Check labs,, ECG, Urine and UDS. For nausea give Zofran, For headache give Acetaminophen, IVF for hydration. Progress Note #2: Time: 11:29 Progress Note On recheck of the patient her headache is now a 4 out of 10. She is resting comfortably. She states that her nausea is resolved. She feels like the weakness is slightly improved but we have not had her getting up out of the bed. She has no new symptoms. She has stable chemistry and coags. Her CBC shows a slightly elevated white count of 16,000 with increased lymphocyte count. This could still be consistent with her recent COVID and viral infection. Patient did not feel like the headache was strong enough to require any narcotic medication. Advised that we would do a CT angiogram of her head to see if anything was showing blockages in her head or neck to explain her symptoms. If she continued to have symptoms after that and the CT angiogram did not show any blockages could discuss with the doctor lactation coordinator about admission and further work-up for an MRI and neuro checks with her history of prior strokes and TIAs. Progress Note #3: Time: 12:[address] angiogram is negative for acute blockage or bleeding and shows chronic changes from prior CVA. Urine negative for infection and UDS negative as well. 1246 D/w Dr. Davis for hospitalist about possible admit for MRI and further work up of dizziness, headache and hx cva. He requested I speak to Stroke Neurologist to get their recommendations. 1249 D/w Dr. Kingsley, Stroke Neurologist lactation coordinator today. She recommends admit for MRI and stroke risk stratification such as lipid profile since she had recent Covid infection within last 2 weeks and hx of stroke, now presenting with headache, dizziness and initial numbness. 1302 D/w Dr. Davis again and advised of recommendation from Dr. Kingsley at [facility]. Will place patient in observation status and perform MRI and stroke risk stratification testing. He will be placing Queued orders. 1308 I updated pt and spouse of test results and plan as directed by Neurology, myself and the hospitalist. I did advise patient that it is possible this could be an atypical migraine or related back to her Covid infection that started on the . If she was not finding further abnormalities with the MRI and stroke risk stratification testing during the admission then the more likely to determine it may be related to 1 of these issues. She may also need to be restarted on anticoagulants or medications for cholesterol as she has been in the past. She was agreeable to admit for further work up and evaluation, especially given her history. She refused ambulance transport though. She felt that she was stable enough to be able to go with her driving her so she could swing by home to get some personal belongings and then go on down to [place]. I advised her that she was at risk of not being monitored and having new symptoms develop and not be treated right away. she voiced understanding and said she did not want the added expense of ambulance when she could go by private vehicle. Will pull IV prior to transfer and she will have to have one restarted when she gets to [place]. Counseled to go straight to the hospital for admit and not to take long with getting belongings from home. If she takes more than an hour they will likely make her start over as a new patient in the ED there. ECG Initial ECG Impression Date: Mar 29, 2021 Initial ECG Impression Time: 09:56 Initial ECG Rate: 68 Initial ECG Rhythm: Normal Sinus Initial ECG Comparisson: Unchanged Comment Normal sinus rhythm with a heart rate of 68 bpm. UT interval [address] elevation. QT interval 402 ms with a QTc interval 428 ms. Appears similar to prior tracings in the system. Diagnostic Imaging Diagonstic Imaging: CT Plain Films/CT/US/NM/MRI: head Comments NAME: [facility] REC#: [id number] PT STATUS: REG ER : 1980 PHYSICIAN: DOMINICK MADERA MD ADMIT DATE: 03/29/21/ER FS Signed Date of Exam:03/29/21 CT HEAD WO PROCEDURE: CT head without contrast. TECHNIQUE: Multiple contiguous axial images were obtained through the brain without the use of intravenous contrast. Auto Exposure Controls were utilized during the CT exam to meet ALARA standards for radiation dose reduction. INDICATION: Headache. History of intracranial hemorrhage. COMPARISON: 02/10/2021 FINDINGS: Areas of encephalomalacia are identified involving the posterior right temporal and left occipital lobes. Findings are consistent with old infarcts. There is no new loss of dior-white matter junction differentiation on today's exam to suggest large developing territorial infarct. No intra or extra-axial intracranial hemorrhage is seen. There is no mass effect or midline shift. Ventricles and cortical sulci are normal in size and contour. Calvarium is intact. Paranasal sinuses show scattered air-fluid levels within the left ethmoid air cells as well as the bilateral sphenoid sinuses. IMPRESSION: 1. No new acute intracranial abnormality. No CT evidence of acute infarct, mass, nor hemorrhage. 2. Redemonstration areas of encephalomalacia involving the posterior right temporal and left occipital lobes. Dictated by: Dictated on workstation # [id number] Dict: 03/29/21 1031 Trans: 03/29/21 1046 [id number] Interpreted by: OJ LOPES MD Electronically signed by: OJ LOPES MD 03/29/21 1046 Diagonstic Imaging: CT Plain Films/CT/US/NM/MRI: head (and neck angiogram) Comments NAME: [facility] REC#: [id number] PT STATUS: REG ER : 1980 PHYSICIAN: DOMINICK MADERA MD ADMIT DATE: 03/29/21/ER FS Draft Date of Exam:03/29/21 CT ANGIO HEAD/NECK PROCEDURE: CT angiography of the head and CT angiography of the neck with and without contrast. TECHNIQUE: Contiguous noncontrast images were obtained from the skull base through the vertex. After intravenous contrast administration, helical CT angiography of the neck was performed. Source data was reformatted into 3D MIP projections. Delayed post contrast acquisition was also obtained. Auto Exposure Controls were utilized during the CT exam to meet ALARA standards for radiation dose reduction. INDICATION: Left-sided headache. Dizziness. COMPARISON: CT head performed earlier the same day. FINDINGS: CTA Neck: The visualized portions of the aortic arch demonstrate no evidence of aneurysm or dissection. There is conventional branching pattern of the great vessels of the aorta. The brachiocephalic artery is normal in course and caliber. The right and left common carotid origins are unremarkable. The origin of the left subclavian artery is patent. The common carotid arteries and internal carotid arteries demonstrate a normal course and caliber without focal stenosis or dissection. The external carotid arteries are patent and unremarkable. The vertebral arteries are codominant. The origin of the right vertebral artery is seen and is unremarkable. The origin of the left vertebral artery is seen and is unremarkable. There is no focal stenosis seen within the neck. There is no dissection. The vertebral arteries are well visualized to up to the level of the basilar artery. The osseous structures of the cervical spine are unremarkable. Included views through the lung apices demonstrate no focal consolidation. CTA brain: The intracranial portion of the bilateral ICAs is unremarkable without focal stenosis or aneurysm. No stenosis is seen in the bilateral anterior and middle cerebral arteries and right posterior cerebral artery. Chronic occlusion is seen in the P3 segment of the left [employer]. No evidence of aneurysm the telida of Garcia. In the posterior circulation, both of the vertebral arteries demonstrate normal opacification. Both the right and left PICA arteries are identified. The basilar artery is normal in course and caliber. The terminal branch vessels including the superior cerebellar arteries unremarkable. IMPRESSION: 1. No acute stenosis or aneurysm in the telida of Garcia. 2. No stenosis or dissection the bilateral carotid and vertebral arteries. 3. 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 Dictated on workstation # [id number] Dict: 03/29/21 1213 Trans: 03/29/21 1223 [id number] Interpreted by: CJ SEVERINO DO Electronically signed by: Reviewed: Reviewed by Me Departure Communication (Admissions) Time/Spoke to Admitting Phy: 13:[address] Davis about recommendations from neurologist. Will place in observation status to obtain MRI and further stroke work-up. Impression Primary Impression: Left-sided headache Additional Impressions: Dizziness History of CVA with residual deficit Disposition: 30 STILL A PATIENT Condition: Stable Admissions Decision to Admit Reason: Admit from ER (General) Decision to Admit/Date: Mar 29, 2021 Time/Decision to Admit Time: 13:02 Departure-Patient Inst. Referrals: ANUEL CUADRA APRN (PCP) Primary Care Physician RENETTA MESA MD (Family) Primary Care Physician NIH Stroke Scale NIH Stroke Scale NIH : Select: Initial Level of Consciousness: 0=Alert Level of Consciousness-Questio: 0=Answers both month/age LOC Commands: 0=Performs both tasks Gaze: 0=Normal Visual Parnell: 0=No visual loss Facial Movement (Facial Paresi: 0=Normal symmetrical mnt Motor Function-Arms Right: 0=No drift Motor Function-Arms Left: 0=No drift Motor Function-Legs Right: 0=No drift Motor Function-Legs Left: 0=No drift Limb Ataxia: 0=Absent Sensory: 0=Normal:no loss Best Language: 0=No aphasia Dysarthria: 0=Normal Extinction & Inattention: 0=No abnormality NIH Stroke Scale Score: 0 DOMINICK MADERA MD Mar 29, 2021 10:33
--- NOTE | 2021-03-29 10:38 | Diagnostic Imaging Report ---
PROCEDURE: CT head without contrast. TECHNIQUE: Multiple contiguous axial images were obtained through the brain without the use of intravenous contrast. Auto Exposure Controls were utilized during the CT exam to meet ALARA standards for radiation dose reduction. INDICATION: Headache. History of intracranial hemorrhage. COMPARISON: 02/10/2021 FINDINGS: Areas of encephalomalacia are identified involving the posterior right temporal and left occipital lobes. Findings are consistent with old infarcts. There is no new loss of dior-white matter junction differentiation on today's exam to suggest large developing territorial infarct. No intra or extra-axial intracranial hemorrhage is seen. There is no mass effect or midline shift. Ventricles and cortical sulci are normal in size and contour. Calvarium is intact. Paranasal sinuses show scattered air-fluid levels within the left ethmoid air cells as well as the bilateral sphenoid sinuses. IMPRESSION: 1. No new acute intracranial abnormality. No CT evidence of acute infarct, mass, nor hemorrhage. 2. Redemonstration areas of encephalomalacia involving the posterior right temporal and left occipital lobes. Dictated by: Dictated on workstation # [id number]
[2021-03-29 10:43] LABS: ATYPICAL LYMPHOCYTES 22 %; BAND NEUTROPHILS 2 %; BASOPHILS % (MANUAL) 0 %; EOSINOPHILS % (MANUAL) 2 %; LYMPHOCYTES % (MANUAL) 15 %; MONOCYTES % (MANUAL) 9 %; NEUTROPHILS % (MANUAL) 50 %; PLATELET ESTIMATE NORMAL; RBC MORPH NORMAL
[2021-03-29 11:07] LABS: BUN/CREATININE RATIO 22; CARBON DIOXIDE 23 MMOL/L (21-32); CHLORIDE 102 MMOL/L (98-107); CREATININE SERUM 0.67 MG/DL (0.60-1.30); GFR ESTIMATED 113; GLUCOSE 86 MG/DL (70-105); POTASSIUM 3.6 MMOL/L (3.6-5.0); SODIUM 137 MMOL/L (135-145)
[2021-03-29 11:08] LABS: CALCIUM 9.1 MG/DL (8.5-10.1)
[2021-03-29 11:10] LABS: ALANINE AMINOTRANSFERASE 19 U/L (0-55); ALBUMIN 4.2 GM/DL (3.2-4.5); ALKALINE PHOSPHATASE 62 U/L (40-136); BILIRUBIN,TOTAL 0.3 MG/DL (0.1-1.0); MAGNESIUM 1.9 MG/DL (1.6-2.4); TOTAL PROTEIN 7.2 GM/DL (6.4-8.2)
[2021-03-29] MEDS ORDERED: NS 100 ML (IVPB) BAG IV ONE (11:45)
[2021-03-29] MEDS ORDERED: IOHEXOL 350 MG/ML 100 ML (OMNIPAQUE 350) VIAL IV ONE (11:45)
[2021-03-29] MEDS ORDERED: CATHETER FLUSH 10 ML SYR IV PRN (11:45)
[2021-03-29] MEDS ORDERED: HOLD METFORMIN - RECEIVED CONTRAST 20 ML VIAL IV SCH (11:45)
[2021-03-29 12:16] LABS: BILIRUBIN,URINE NEGATIVE (NEGATIVE); CLARITY,URINE CLEAR; COLOR,URINE YELLOW; GLUCOSE, URINE (UA) NEGATIVE (NEGATIVE); KETONES,URINE NEGATIVE (NEGATIVE); LEUKOCYTE ESTERASE ,URINE NEGATIVE (NEGATIVE); NITRITE,URINE NEGATIVE (NEGATIVE); PROTEIN,URINE NEGATIVE (NEGATIVE)
--- NOTE | 2021-03-29 12:23 | Diagnostic Imaging Report ---
PROCEDURE: CT angiography of the head and CT angiography of the neck with and without contrast. TECHNIQUE: Contiguous noncontrast images were obtained from the skull base through the vertex. After intravenous contrast administration, helical CT angiography of the neck was performed. Source data was reformatted into 3D MIP projections. Delayed post contrast acquisition was also obtained. Auto Exposure Controls were utilized during the CT exam to meet ALARA standards for radiation dose reduction. INDICATION: Left-sided headache. Dizziness. COMPARISON: CT head performed earlier the same day. FINDINGS: CTA Neck: The visualized portions of the aortic arch demonstrate no evidence of aneurysm or dissection. There is conventional branching pattern of the great vessels of the aorta. The brachiocephalic artery is normal in course and caliber. The right and left common carotid origins are unremarkable. The origin of the left subclavian artery is patent. The common carotid arteries and internal carotid arteries demonstrate a normal course and caliber without focal stenosis or dissection. The external carotid arteries are patent and unremarkable. The vertebral arteries are codominant. The origin of the right vertebral artery is seen and is unremarkable. The origin of the left vertebral artery is seen and is unremarkable. There is no focal stenosis seen within the neck. There is no dissection. The vertebral arteries are well visualized to up to the level of the basilar artery. The osseous structures of the cervical spine are unremarkable. Included views through the lung apices demonstrate no focal consolidation. CTA brain: The intracranial portion of the bilateral ICAs is unremarkable without focal stenosis or aneurysm. No stenosis is seen in the bilateral anterior and middle cerebral arteries and right posterior cerebral artery. 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 No evidence of aneurysm the [place]. In the posterior circulation, both of the vertebral arteries demonstrate normal opacification. Both the right and left PICA arteries are identified. The basilar artery is normal in course and caliber. The terminal branch vessels including the superior cerebellar arteries unremarkable. IMPRESSION: 1. No acute stenosis or aneurysm in the [place]. 2. No stenosis or dissection the bilateral carotid and vertebral arteries. 3. 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 Dictated by: Dictated on workstation # [id number]
[2021-03-29 12:35] LABS: BACTERIA,URINE TRACE /HPF; WBC,URINE 0-2 /HPF
[2021-03-29 12:36] LABS: AMPHETAMINE SCREEN, URINE NEGATIVE (NEGATIVE); BARBITURATE SCREEN URINE NEGATIVE (NEGATIVE); BENZODIAZEPINES SCREEN URINE NEGATIVE (NEGATIVE); CANNABINOID SCREEN, URINE NEGATIVE (NEGATIVE); COCAINE SCREEN URINE NEGATIVE (NEGATIVE); METHADONE STAT NEGATIVE (NEGATIVE); METHAMPHETAMINE SCREEN URINE S NEGATIVE (NEGATIVE); OPIATE SCREEN URINE NEGATIVE (NEGATIVE); OXYCODONE STAT NEGATIVE (NEGATIVE); PROPOXYPHENE STAT NEGATIVE (NEGATIVE); TRICYCLIC ANTIDEPRESSANTS SCRE NEGATIVE (NEGATIVE)
[2021-03-29 16:00] VITALS: BP 114/82
[2021-03-29] MEDS ORDERED: diphenhydrAMINE 25 MG TAB (BENADRYL) PO PRN (16:45)
[2021-03-29] MEDS ORDERED: ANTACID SUSP 30 ML UDC (MYLANTA) PO PRN (16:45)
[2021-03-29] MEDS ORDERED: polyethylene glycoL POWDER 17 GM (MIRALAX) PACK PO PRN (16:45)
[2021-03-29] MEDS ORDERED: ACETAMINOPHEN 325 MG TABLET PO PRN (16:45)
[2021-03-29] MEDS ORDERED: ONDANSETRON 4 MG (ZOFRAN) ORAL DISSOLVE TAB PO PRN (16:45)
[2021-03-29] MEDS ORDERED: ONDANSETRON 4 MG/2 ML (SDV) Z0FRAN IV PRN (16:45)
[2021-03-29] MEDS ORDERED: MELATONIN 3 MG TABLET PO PRN (16:45)
[2021-03-29] MEDS ORDERED: ENOXAPARIN 40 MG/0.4 ML (LOVENOX) SYR SC SCH (17:00)
[2021-03-29 19:11] VITALS: BP 135/82
[2021-03-30 01:01] VITALS: BP 93/62
[2021-03-30 03:24] VITALS: BP 94/63
[2021-03-30 05:59] LABS: BASOPHILS # (AUTO) 0.1 10^3/uL (0.0-0.1); BASOPHILS % (AUTO) 1 % (0-10); EOSINOPHILS # (AUTO) 0.3 10^3/uL (0.0-0.3); EOSINOPHILS % (AUTO) 2 % (0-10); HEMATOCRIT 43 % (35-52); HEMOGLOBIN 14.7 g/dL (11.5-16.0); LYMPHOCYTES # (AUTO) 3.9 10^3/uL (1.0-4.0); LYMPHOCYTES % (AUTO) 37 % (12-44); MEAN CORPUSCULAR HEMOGLOBIN 32 pg (25-34); MEAN CORPUSCULAR HGB CONC 34 g/dL (32-36); MEAN CORPUSCULAR VOLUME 95 fL (80-99); MONOCYTES % (AUTO) 9 % (0-12); NEUTROPHILS # (AUTO) 5.3 10^3/uL (1.8-7.8); NEUTROPHILS % (AUTO) 50 % (42-75); PLATELET COUNT 237 10^3/uL (130-400); WHITE BLOOD COUNT 10.4 10^3/uL (4.3-11.0)
[2021-03-30] MEDS ORDERED: MAGNESIUM 1 GM/100 ML IVPB 100 ML IV SCH (06:00)
[2021-03-30] MEDS ORDERED: POTASSIUM CL 10MEQ/50ML IVPB 50 ML IV SCH (06:00)
[2021-03-30] MEDS ORDERED: KCL 20 MEQ TAB (K-DUR) PO SCH (06:00)
[2021-03-30 06:13] LABS: POTASSIUM 4.1 MMOL/L (3.6-5.0)
[2021-03-30 06:14] LABS: CALCIUM 8.6 MG/DL (8.5-10.1)
[2021-03-30 06:18] LABS: CREATININE SERUM 0.67 MG/DL (0.60-1.30)
[2021-03-30 06:22] LABS: MAGNESIUM 1.9 MG/DL (1.6-2.4)
[2021-03-30 08:00] VITALS: BP 113/67
--- NOTE | 2021-03-30 08:47 | Consultation-Cardiology ---
HPI-Cardiology Cardiology Consultation Date of Consultation 03/30/21 Date of Admission Time Seen by Provider: 08:42 Indication: CVA HPI 40-year-old lady history of CVA, underwent excessive work-up in 2019 for stroke did not show any cardiac source of embolization. She had a recent COVID-19 infection and when she was treated with Z-Rogelio. Started with her abnormal test on March 13, 2021. Was recovering slowly. Started to have dizziness and lightheadedness. No full syncope, she had no evidence in her upper extremities. No focal deficit. Patient went to [place] emergency room where she was evaluated and she came to the hospital at [place]. Currently she is feeling better, still having some cough. Denied any chest pain or palpitation. No other symptoms. Home Medications & Allergies Allergies: Coded Allergies: NKANo Known Allergies (Verified Allergy, Unknown, 04/26/05) Home Medication List Reviewed: Yes KVW-Jylbll-Jalksd Hx Patient Social History Employed/Student: employed Smoking Status: Current Everyday Smoker Type Used: Cigarettes Recent Hopitalizations: Yes (stroke 05/20) Have you traveled recently?: No Alcohol Use?: Yes Immunizations Up To Date Tetanus Booster (TDap): Unknown Past Medical History Discussed below Family Medical History Significant Family History: No Pertinent Family Hx Family History: Hypertension 19 FATHER Review of Systems-General Review of Systems Constitutional: see HPI; No chills, No diaphoresis, No fever EENTM: vision loss (pt reports 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 She felt it was slightly worse since headache started.); No ear discharge, No hearing loss, No ear pain, No double vision, No epistaxis, No nose congestion, No throat pain Respiratory: see HPI, cough; No short of breath, No stridor, No wheezing Cardiovascular: see HPI; No chest pain, No edema, No Hx of Intervention, No palpitations, No syncope, No vascular heart diseas, No other Gastrointestinal: no symptoms reported, see HPI, nausea; No vomiting Genitourinary: no symptoms reported, see HPI; No dysuria Musculoskeletal: see HPI; No muscle pain, No neck pain Skin: see HPI; No rash Psychiatric/Neurological: See HPI, Anxiety (worried she is having another stroke), Headache (sharp left sided headache onset around 920 am), Numbness (bilateral hands and lips initially, resolved prior to arrival in ED), Weakness (feels like she is weak overall) Reviewed Test Results Reviewed Test Results Lab Laboratory Tests Test 03/29/21 10:05 03/29/21 12:11 03/30/21 05:41 Range/Units White Blood Count 16.0 H 10.4 4.3-11.0 10^3/uL Red Blood Count 5.00 4.54 3.80-5.11 10^6/uL Hemoglobin 15.8 14.7 11.5-16.0 g/dL Hematocrit 47 43 35-52 % Mean Corpuscular Volume 93 95 80-99 fL Mean Corpuscular Hemoglobin 32 32 25-34 pg Mean Corpuscular Hemoglobin Concent 34 34 32-36 g/dL Red Cell Distribution Width 13.2 13.1 10.0-14.5 % Platelet Count 294 237 130-400 10^3/uL Mean Platelet Volume 10.0 10.0 9.0-12.2 fL Immature Granulocyte % (Auto) 0 0 % Neutrophils (%) (Auto) 47 50 42-75 % Lymphocytes (%) (Auto) 42 37 12-44 % Monocytes (%) (Auto) 9 9 0-12 % Eosinophils (%) (Auto) 1 2 0-10 % Basophils (%) (Auto) 0 1 0-10 % Neutrophils # (Auto) 7.5 5.3 1.8-7.8 10^3/uL Lymphocytes # (Auto) 6.7 H 3.9 1.0-4.0 10^3/uL Monocytes # (Auto) 1.4 H 1.0 0.0-1.0 10^3/uL Eosinophils # (Auto) 0.2 0.3 0.0-0.3 10^3/uL Basophils # (Auto) 0.1 0.1 0.0-0.1 10^3/uL Immature Granulocyte # (Auto) 0.1 0.0 0.0-0.1 10^3/uL Neutrophils % (Manual) 50 % Lymphocytes % (Manual) 15 % Monocytes % (Manual) 9 % Eosinophils % (Manual) 2 % Basophils % (Manual) 0 % Band Neutrophils 2 % Atypical Lymphocytes 22 % Platelet Estimate NORMAL Blood Morphology Comment NORMAL Prothrombin Time 12.2 12.2-14.7 SEC INR Comment 0.9 0.8-1.4 Activated Partial Thromboplast Time 25 24-35 SEC Sodium Level 137 138 135-145 MMOL/L Potassium Level 3.6 4.1 3.6-5.0 MMOL/L Chloride Level 102 107 98-107 MMOL/L Carbon Dioxide Level 23 18 L 21-32 MMOL/L Anion Gap 12 13 5-14 MMOL/L Blood Urea Nitrogen 15 14 7-18 MG/DL Creatinine 0.67 0.67 0.60-1.30 MG/DL Estimat Glomerular Filtration Rate 113 113 BUN/Creatinine Ratio 22 21 Glucose Level 86 90 70-105 MG/DL Calcium Level 9.1 8.6 8.5-10.1 MG/DL Corrected Calcium 8.9 8.5-10.1 MG/DL Magnesium Level 1.9 1.9 1.6-2.4 MG/DL Total Bilirubin 0.3 0.1-1.0 MG/DL Aspartate Amino Transf (AST/SGOT) 15 5-34 U/L Alanine Aminotransferase (ALT/SGPT) 19 0-55 U/L Alkaline Phosphatase 62 40-136 U/L Total Protein 7.2 6.4-8.2 GM/DL Albumin 4.2 3.2-4.5 GM/DL Serum Alcohol < 10 <10 MG/DL Urine Color YELLOW Urine Clarity CLEAR Urine pH 6.0 5-9 Urine Specific [place] 1.010 L 1.016-1.022 Urine Protein NEGATIVE NEGATIVE Urine Glucose (UA) NEGATIVE NEGATIVE Urine Ketones NEGATIVE NEGATIVE Urine Nitrite NEGATIVE NEGATIVE Urine Bilirubin NEGATIVE NEGATIVE Urine Urobilinogen 0.2 < = 1.0 MG/DL Urine Leukocyte Esterase NEGATIVE NEGATIVE Urine RBC (Auto) NEGATIVE NEGATIVE Urine RBC NONE /HPF Urine WBC 0-2 /HPF Urine Squamous Epithelial Cells 5-10 /HPF Urine Crystals NONE /LPF Urine Bacteria TRACE /HPF Urine Casts NONE /LPF Urine Mucus NEGATIVE /LPF Urine Culture Indicated NO Urine Opiates Screen NEGATIVE NEGATIVE Urine Oxycodone Screen NEGATIVE NEGATIVE Urine Methadone Screen NEGATIVE NEGATIVE Urine Propoxyphene Screen NEGATIVE NEGATIVE Urine Barbiturates Screen NEGATIVE NEGATIVE Ur Tricyclic Antidepressants Screen NEGATIVE NEGATIVE Urine Phencyclidine Screen NEGATIVE NEGATIVE Urine Amphetamines Screen NEGATIVE NEGATIVE Urine Methamphetamines Screen NEGATIVE NEGATIVE Urine Benzodiazepines Screen NEGATIVE NEGATIVE Urine Cocaine Screen NEGATIVE NEGATIVE Urine Cannabinoids Screen NEGATIVE NEGATIVE Triglycerides Level 273 H <150 MG/DL Cholesterol Level 215 H < 200 MG/DL LDL Cholesterol Direct 140 H 1-129 MG/DL VLDL Cholesterol 55 H 5-40 MG/DL HDL Cholesterol 44 40-60 MG/DL Physical Exam Physical Exam Vital Signs Vital Signs - First Documented 03/29/21 09:57 Temp 36.2 Pulse 71 Resp 18 B/P (MAP) 133/100 (111) Pulse Ox 99 O2 Delivery Room Air Capillary Refill : Less Than 3 Seconds Height, Weight, BMI Height: 5'4.00" Weight: 146lbs. 0.0oz. [id number]; 32.56 BMI Method:Stated General Appearance: No Apparent Distress, WD/WN Eyes: Bilateral Eye PERRL, Bilateral Eye EOMI HEENT: Pharynx Normal, Moist Mucous Membranes Neck: Full Range of Motion, Normal Inspection, Non Tender, Supple Respiratory: Chest Non Tender, Lungs Clear, Normal Breath Sounds, No Accessory Muscle Use, No Respiratory Distress Cardiovascular: Regular Rate, Rhythm, No Murmur, Normal Peripheral Pulses Gastrointestinal: Normal Bowel Sounds, No Pulsatile Mass, Non Tender, Soft Rectal: Deferred Back: Normal Inspection, No CVA Tenderness, No Vertebral Tenderness Extremity: Normal Capillary Refill, Normal Inspection, Normal Range of Motion, Non Tender, No Calf Tenderness, No Pedal Edema Neurologic/Psychiatric: Alert, Oriented x3, No Motor/Sensory Deficits, group manager II- XII Norm as Tested; No Aphasia, No Facial Droop, No Motor Weakness, No Sensory Deficit; Other (appears slightly anxious) Skin: Normal Color, Warm/Dry; No Rash Lymphatic: No Adenopathy A/P-Cardiology Admission Diagnosis Dizziness and lightheadedness COVID-19 infection Hyperlipidemia History of CVA Assessment/Plan Dizziness and lightheadedness, numbness in the upper extremities. Resolved. No further episodes were reported, still have slight loss of vision due to her previous stroke. History of CVA, CT of the head showed occlusion of the P3 segment of the left [employer] OPER[employer], it was present on her previous CT scan. No new changes were noted. Source of embolization was not identified. Does not have any recent stroke. Recent COVID-19 infection, occurred on March 13, 2021, recovered but still having persistent cough. Hyperlipidemia, LDL 140, total cholesterol 215, started on Lipitor 80 mg daily Borderline hypotension. Monitor blood pressure SYDNEY MUHAMMAD MD Mar 30, 2021 08:47
[2021-03-30] MEDS ORDERED: ASPIRIN 81 MG CHEW (CHILDREN'S ASA) PO SCH (09:00)
--- NOTE | 2021-03-30 09:47 | Diagnostic Imaging Report ---
PROCEDURE: MR imaging of the brain without contrast. TECHNIQUE: Multiplanar, multisequence MR imaging of the brain was performed without contrast. DATE: March 30, 2021. COMPARISON: CT angiography head and neck March 29, 2021. CT head without contrast March 29, 2021. MRI brain May 14, 2018. HISTORY: 40-year-old female, headache. Concern for stroke. Recent Covid 19 infection. FINDINGS: There is a very small focus of diffusion restriction involving the left parietal occipital cortex on diffusion weighted sequence image 18. There are additional small areas of diffusion restriction involving the left occipital lobe cortex such as on axial diffusion weighted sequence image 13 and adjacent sequential images. There is no identified abnormal intracranial susceptibility. There is encephalomalacia in the inferior aspect of the left occipital lobe. There is also a small area of encephalomalacia in the right temporal occipital region. There are areas of T2 hyperintense signal in the right frontal lobe and right frontal parietal region which are cortical and juxtacortical in location. There are additional foci of T2 hyperintense signal in the subcortical white matter bilaterally. There is no identified abnormal extra-axial fluid collection. There is no mass effect or midline shift. There is mucosal thickening of the paranasal sinuses with additional nonspecific opacification in the left ethmoidal air cells. There is nonspecific opacification in the bilateral mastoid air cells. IMPRESSION: 1. Small acute cortical infarcts involving the left parieto-occipital cortex and left occipital cortex. 2. Findings of encephalomalacia in the left occipital lobe and right temporal occipital region. Additional peripheral areas of T2 hyperintense signal in the right frontal lobe and right frontoparietal region which are cortical or juxtacortical in location may also relate to sequela of prior insult and gliosis. 3. Mild areas of T2 and FLAIR hyperintense signal in the subcortical and periventricular white matter. Differential diagnostic considerations would include early findings of chronic small vessel ischemic disease, vasculitis, and less likely demyelinating etiology. Dictated by: Dictated on workstation # [id number]
[2021-03-30 11:28] VITALS: BP 124/74
[2021-03-30] MEDS ORDERED: RT-ALBUINH INH (12:06)
[2021-03-30] MEDS ORDERED: ACET-2267 PO (12:06)
[2021-03-30] MEDS ORDERED: METH4TAB10 PO (12:06)
[2021-03-30] MEDS ORDERED: ASPI-999 PO (12:59)
[2021-03-30] MEDS ORDERED: CLOP75TA69 PO (12:59)
[2021-03-30] MEDS ORDERED: ATOR80TA76 PO (12:59)
== END 2021-03-30 12:57 | disposition home or self-care (01) ==
LOC: EDUNIT# 09:54 → ER FS 09:54 → UNDOADMOB 15:26 → 4TH 15:26 → UNDODISOB 03-30 15:40
PROVIDERS: ADMIT Internal Medicine; ATTEND Internal Medicine
DX: R42 Dizziness and giddiness (principal); R51.9 Headache, unspecified; E78.5 Hyperlipidemia, unspecified; I95.89 Other hypotension; F17.210 Nicotine dependence, cigarettes, uncomplicated; R05.3 Chronic cough; Z86.16 Personal history of COVID-19; Z79.1 Long term (current) use of non-steroidal anti-inflammatories (NSAID); Z86.73 Personal history of transient ischemic attack (TIA), and cerebral infarction without residual deficits
CPT/HCPCS: 36415; 70450; 70496; 70498; 70551; 80048; 80053; 80061; 80306; 80320; 81000; 83735; 85007; 85025; 85027; 85610; 85730; 93005; 93041; 96374; G0378

== ENCOUNTER → 2021-06-12 | Outpatient (CLI) | payer BC ==
[~2021-06-12] MED LIST changes: +ACET-2267 PO; +ATOR80TA76 PO; +CLOP75TA69 PO; +METH4TAB10 PO; +RT-ALBUINH INH
[2021-06-14 14:02] LABS: IMMUNOFIX PATH REPORT NUMBER Complete (Complete)
== END ==
LOC: LAB 09:02
PROVIDERS: ATTEND Psychiatry & Neurology Neurology
DX: I63.9 Cerebral infarction, unspecified (principal)
CPT/HCPCS: 36415; 82103; 82595; 83090; 83520; 85652; 86021; 86141; 86162; 86225; 86235; 86334

== ENCOUNTER 2022-12-24 14:41 | Emergency (ER) | payer SELFPAY ==
[~2022-12-24] VITALS: Ht 162 cm; Wt 79.7 kg
[~2022-12-24 14:41] MED LIST changes: +CLOP-31 PO; -CLOP75TA69 PO
--- NOTE | 2022-12-24 14:57 | ED Psychosocial ---
General Chief Complaint: Psych/Social Disorder Stated Complaint: PSYCH EVAL Source: patient Exam Limitations: no limitations History of Present Illness Date Seen by Provider: Dec 24, 2022 Time Seen by Provider: 14:43 Initial Comments 42-year-old female with past medical history of depression coming in due to suicidal ideation. Last night, she was feeling suicidal, put a bunch of her Lexapro pills in her mouth, but did not swallow them, her boyfriend made her spit them out she states. She is adamant that she did not swallow any pills that she should not have. She drinks beer most days, but today she did drink about a pint of liquor as she was feeling very sad. She states she is sad because her kids do not want to be around her, and she believes her boyfriend does not want to be around her either. She denies any previous psychiatric admissions, but does endorse prior self-harm where she used to cut her forearms. Allergies and Home Medications Allergies Coded Allergies: Johnnie Known Allergies (Verified Allergy, Unknown, 04/26/05) Patient Home Medication List Home Medication List Reviewed: Yes Aspirin (Aspirin) 81 Mg Tab.chew, 81 MG PO DAILY Prescribed by: AVE HARDWICK on 03/30/21 1259 Atorvastatin Calcium (Atorvastatin Calcium) 80 Mg Tablet, 80 MG PO DAILY Prescribed by: AVE HARDWICK on 03/30/21 1259 Clopidogrel Bisulfate (Plavix) 75 Mg Tablet, 75 MG PO DAILY Prescribed by: AVE HARDWICK on 03/30/21 1259 Review of Systems Constitutional: No fever EENTM: no symptoms reported Respiratory: no symptoms reported Cardiovascular: no symptoms reported Gastrointestinal: no symptoms reported Genitourinary: no symptoms reported Musculoskeletal: no symptoms reported Skin: no symptoms reported Psychiatric/Neurological: See HPI All Other Systems Reviewed Negative Unless Noted: Yes Past Atjprcc-Vfzasq-Hkecqq Hx Patient Social History Alcohol Use?: Yes Alcohol type: Beer Immunizations Up To Date Tetanus Booster (TDap): Unknown PED Vaccines UTD: Yes Seasonal Allergies Seasonal Allergies: No Past Medical History Surgery/Hospitalization HX: Covid-22 Mar 2021, TIA, CVA 2018, Tobacco abuse, Daily Alcohol use Surgeries: Yes (WISDOM TEETH REMOVED) Respiratory: No Cardiac: No Neurological: Yes Genitourinary: No Gastrointestinal: No Musculoskeletal: No Endocrine: No HEENT: No Cancer: No Psychosocial: No Integumentary: No Blood Disorders: No Family Medical History Hypertension 19 FATHER No Pertinent Family Hx Physical Exam Vital Signs - First Documented 12/24/22 15:04 Temp 36.9 Pulse 84 Resp 18 B/P (MAP) 126/97 (107) Pulse Ox 96 O2 Delivery Room Air Capillary Refill : Height, Weight, BMI Height: 5'4.00" Weight: 146lbs. 0.0oz. 66.359915mj; 32.56 BMI Method:Stated General Appearance: WD/WN, other (tearful at times, cooperative) HEENT: PERRL/EOMI, normal ENT inspection, pharynx normal Neck: non-tender, full range of motion, supple, normal inspection Respiratory: chest non-tender, lungs clear, normal breath sounds, no respiratory distress, no accessory muscle use Cardiovascular: regular rate, rhythm, no edema, no murmur Gastrointestinal: normal bowel sounds, non tender, soft; No distended, No guarding, No rebound Extremities: normal range of motion, non-tender, normal inspection, no pedal edema, no calf tenderness, normal capillary refill Neurologic/Psychiatric: no motor/sensory deficits, alert, normal mood/affect, oriented x 3 Behavior/Eye Contact: cooperative, good eye contact Thoughts/Hallucinations: normal thought pattern, no apparent hallucination Skin: normal color, warm/dry Progress/Results/Core Measures Results/Orders Lab Results Laboratory Tests Test 12/24/22 14:50 12/24/22 14:55 Range/Units SARS-CoV-2 RNA (RT-PCR) Not Detected Not Detecte White Blood Count 15.2 H 4.3-11.0 10^3/uL Red Blood Count 4.85 3.80-5.11 10^6/uL Hemoglobin 16.0 11.5-16.0 g/dL Hematocrit 47 35-52 % Mean Corpuscular Volume 97 80-99 fL Mean Corpuscular Hemoglobin 33 25-34 pg Mean Corpuscular Hemoglobin Concent 34 32-36 g/dL Red Cell Distribution Width 13.8 10.0-14.5 % Platelet Count 378 130-400 10^3/uL Mean Platelet Volume 9.4 9.0-12.2 fL Immature Granulocyte % (Auto) 0 % Neutrophils (%) (Auto) 66 42-75 % Lymphocytes (%) (Auto) 25 12-44 % Monocytes (%) (Auto) 7 0-12 % Eosinophils (%) (Auto) 1 0-10 % Basophils (%) (Auto) 1 0-10 % Neutrophils # (Auto) 10.0 H 1.8-7.8 10^3/uL Lymphocytes # (Auto) 3.8 1.0-4.0 10^3/uL Monocytes # (Auto) 1.1 H 0.0-1.0 10^3/uL Eosinophils # (Auto) 0.1 0.0-0.3 10^3/uL Basophils # (Auto) 0.2 H 0.0-0.1 10^3/uL Immature Granulocyte # (Auto) 0.1 0.0-0.1 10^3/uL Neutrophils % (Manual) 60 % Lymphocytes % (Manual) 25 % Monocytes % (Manual) 13 % Eosinophils % (Manual) 2 % Platelet Estimate ADEQUATE Percent Immature Platelet Fraction 3.7 0.0-7.6 % Polychromasia SLIGHT Sodium Level 137 135-145 MMOL/L Potassium Level 4.0 3.6-5.0 MMOL/L Chloride Level 106 98-107 MMOL/L Carbon Dioxide Level 18 L 21-32 MMOL/L Anion Gap 13 5-14 MMOL/L Blood Urea Nitrogen 8 7-18 MG/DL Creatinine 0.58 L 0.60-1.30 MG/DL Estimat Glomerular Filtration Rate 115 BUN/Creatinine Ratio 14 Glucose Level 100 70-105 MG/DL Calcium Level 8.7 8.5-10.1 MG/DL Corrected Calcium 8.5 8.5-10.1 MG/DL Total Bilirubin 0.2 0.1-1.0 MG/DL Aspartate Amino Transf (AST/SGOT) 26 5-34 U/L Alanine Aminotransferase (ALT/SGPT) 20 0-55 U/L Alkaline Phosphatase 85 40-136 U/L Total Protein 7.6 6.4-8.2 GM/DL Albumin 4.3 3.2-4.5 GM/DL Salicylates Level < 0.3 L 5.0-20.0 MG/DL Acetaminophen Level < 10 L 10-30 UG/ML Serum Alcohol 273 H <10 MG/DL My Orders Orders - GERARDO ROGER MD Ua Culture If Indicated (12/24/22 14:45) Cbc And Automated Diff (12/24/22 14:45) Comprehensive Metabolic Panel (12/24/22 14:45) Alcohol (12/24/22 14:45) Drug Screen Stat (Urine) (12/24/22 14:45) Acetaminophen (12/24/22 14:45) Salicylate (12/24/22 14:45) Ekg Tracing (12/24/22 14:45) Monitor-Rhythm Ecg Trace Only (12/24/22 14:45) Covid 19 Inhouse Test (12/24/22 14:45) Urine Bedside (12/24/22 14:46) Manual Differential (12/24/22 14:55) Vital Signs/I&O 12/24/22 15:04 Temp 36.9 Pulse 84 Resp 18 B/P (MAP) 126/97 (107) Pulse Ox 96 O2 Delivery Room Air Progress Progress Note : Progress Note 42-year-old female coming in due to suicidal ideation. ABCs were intact and vitals were stable on presentation. She has not done anything to harm herself as of recent. She did drink alcohol today due to a recent negative life experience. Basic labs were obtained and were significant for negative aspirin and Tylenol level, negative test, EKG with no acute ischemic changes and no other toxidrome concerns. COVID test was negative as well. Her alcohol level was around 200. I discussed with the patient we would have to wait until she is clinically sober and rediscuss her case to see if she would need mental health screening at that time. When the patient did become clinically sober many hours later, she was talking more clearly, she is stating she is not feeling suicidal at this time, it was just a moment where she was reaching out for help when she was intoxicated. She states she would like her daughter to come pick her up, she will then stay at the daughter's house, and her daughter will get rid of all sharp objects and have the patient's medications locked up. There are no firearms present. She states she has a lot to live for with her daughter and her relationship with her mother. She says she plans to not drink alcohol tonight, and call [facility] in the morning to schedule an appointment. I discussed that I still would like her to have a mental health evaluation in the ER, but she states that she is adamant she is not suicidal right now and she wants to leave at this moment, as her daughter is on the way to pick her up to stay with her. We verbally discussed our own safety plan, and she is to call 911 if she has any issues or if she feels these thoughts again. She did leave AGAINST MEDICAL ADVICE, because I still recommended a full mental health evaluation, but I truly believe she is not suicidal at this time now that she has become more sober. Initial ECG Impression Date: Dec 24, 2022 Initial ECG Impression Time: 14:58 Initial ECG Rate: 100 Initial ECG Rhythm: S.Tach Comment Narrow QRS, normal axis, no significant ST changes or T wave abnormalities, QTc 400, no delta wave, no terminal R wave in aVR Departure Impression Primary Impression: Suicidal ideation Disposition: 07 AGAINST MEDICAL ADVICE Condition: Against Medical Advice Departure-Patient Inst. Decision time for Depature: 18:40 Referrals: ANUEL CUADRA APRN (PCP) Primary Care Physician RENETTA MESA MD (Family) Primary Care Physician Patient Instructions: OUTPT MENTAL HEALTH SERVICES, Suicide Prevention Add. Discharge Instructions: Please give your daughter any and all pills and have them locked up, please remove all sharp objects from out of reach and have no firearms in the house. Please call [facility] for an appointment. You can always come back to the ER if needed. GERARDO ROGER MD Dec 24, 2022 14:57
[2022-12-24 15:00] LABS: BASOPHILS # (AUTO) 0.2 10^3/uL (0.0-0.1); BASOPHILS % (AUTO) 1 % (0-10); EOSINOPHILS # (AUTO) 0.1 10^3/uL (0.0-0.3); EOSINOPHILS % (AUTO) 1 % (0-10); HEMATOCRIT 47 % (35-52); LYMPHOCYTES # (AUTO) 3.8 10^3/uL (1.0-4.0); LYMPHOCYTES % (AUTO) 25 % (12-44); MEAN CORPUSCULAR HEMOGLOBIN 33 pg (25-34); MEAN CORPUSCULAR HGB CONC 34 g/dL (32-36); MEAN CORPUSCULAR VOLUME 97 fL (80-99); MEAN PLATELET VOLUME 9.4 fL (9.0-12.2); MONOCYTES # (AUTO) 1.1 10^3/uL (0.0-1.0); MONOCYTES % (AUTO) 7 % (0-12); NEUTROPHILS % (AUTO) 66 % (42-75); PLATELET COUNT 378 10^3/uL (130-400); WHITE BLOOD COUNT 15.2 10^3/uL (4.3-11.0)
[2022-12-24 15:04] VITALS: BP 126/97
[2022-12-24 15:12] LABS: CHLORIDE 106 MMOL/L (98-107); SODIUM 137 MMOL/L (135-145)
[2022-12-24 15:14] LABS: EOSINOPHILS % (MANUAL) 2 %; LYMPHOCYTES % (MANUAL) 25 %; MONOCYTES % (MANUAL) 13 %; NEUTROPHILS % (MANUAL) 60 %; PLATELET ESTIMATE ADEQUATE; POLYCHROMASIA SLIGHT
[2022-12-24 15:21] LABS: ACETAMINOPHEN < 10 UG/ML (10-30); ALANINE AMINOTRANSFERASE 20 U/L (0-55); ALBUMIN 4.3 GM/DL (3.2-4.5); ALKALINE PHOSPHATASE 85 U/L (40-136); BILIRUBIN,TOTAL 0.2 MG/DL (0.1-1.0); BUN/CREATININE RATIO 14; CALCIUM 8.7 MG/DL (8.5-10.1); CARBON DIOXIDE 18 MMOL/L (21-32); CREATININE SERUM 0.58 MG/DL (0.60-1.30); GFR ESTIMATED 115; GLUCOSE 100 MG/DL (70-105); SALICYLATE < 0.3 MG/DL (5.0-20.0); TOTAL PROTEIN 7.6 GM/DL (6.4-8.2)
== END 2022-12-24 18:42 | disposition left against medical advice (07) ==
LOC: EDUNIT# 14:41 → ER FS 14:42
DX: R45.851 Suicidal ideations (principal); F10.129 Alcohol abuse with intoxication, unspecified; Z86.16 Personal history of COVID-19; Z87.891 Personal history of nicotine dependence; Z20.822 Contact with and (suspected) exposure to COVID-19; Y90.7 Blood alcohol level of 200-239 mg/100 ml
CPT/HCPCS: 36415; 80053; 85007; 85027; 87636; 93005; 99284; G0480 ×3; 80320; 80329